=== PATIENT | male | born 1945 | race Caucasian/White ===

== ENCOUNTER 2018-07-19 10:50 | Inpatient (IN) ==
--- NOTE | 2018-07-19 11:15 | ED ---
HPI General Chief Complaint: Chest Pain Stated Complaint: Medical Time Seen by Provider: 07/19/18 10:53 History of Present Illness HPI narrative: This is a 72-year-old male with a history of, diabetes mellitus, previous lower extremity DVTs, who is on warfarin, presents today with complaints of 1-1/2-day history of chest pain. Patient reports it as tight squeezing in his chest. He denies any radiation. He reports it is a 10 out of 10. It is substernal in nature. The patient denies any previous history of pain such as this. He denies any history of heart attacks. He does have a strong family history of coronary artery disease. He reports that he just started smoking 4 years ago. He states that he had quit for several years prior to that. Related Data Home Medications Medication Instructions Recorded Confirmed metformin 1,000 mg PO BID 07/19/18 07/19/18 verapamil 120 mg PO DAILY 07/19/18 07/19/18 warfarin [Coumadin] 2.5 mg PO DAILY 07/19/18 07/19/18 Allergies Allergy/AdvReac Type Severity Reaction Status Date / Time No Known Allergies Allergy Verified 07/19/18 10:54 Review of Systems ROS: all other systems reviewed are negative Constitutional Reports system reviewed and no additional complaints, except as docu Eyes Reports system reviewed and no additional complaints, except as docu ENT Reports system reviewed and no additional complaints, except as docu Cardiovascular Reports chest pain, Denies rapid heart rate and Denies dyspnea Respiratory Denies chest congestion, Denies cough and Reports dyspnea Gastrointestinal Denies abdominal pain, Denies nausea and Denies vomiting Genitourinary Denies dysuria and Denies flank pain Musculoskeletal Denies back pain Neurologic Reports system reviewed and no additional complaints, except as docu PMFSH Medical History Medical History Diabetes (Acute) HBP (high blood pressure) (Acute) Surgical History Surgical History H/O shoulder surgery (Acute) Social History Social History Substance History: No History of Abuse Second Hand Smoke Exposure: Yes Smoking Status: Current every day smoker Tobacco Type: Cigarettes How Often Do You Have a Drink Containing Alcohol: Monthly or less Recent Out of Country Travel within the Last 8 Weeks: No Exam Narrative Exam Narrative: GENERAL: Well-developed well-nourished male who appears to be in obvious distress. SKIN: Focused skin assessment warm/dry. HEAD: Atraumatic. Normocephalic. EYES: No scleral icterus. No injection or drainage. ENT: No nasal bleeding or discharge. Mucous membranes pink and moist. NECK: Trachea midline. Supple. CARDIOVASCULAR: Regular rate and rhythm. No murmur appreciated. RESPIRATORY: No accessory muscle use. Clear to auscultation. Breath sounds equal bilaterally. Tachypneic with a rate in the low 20s. GASTROINTESTINAL: Abdomen soft, non-tender, nondistended. Hepatic and splenic margins not palpable. MUSCULOSKELETAL: No obvious deformities. No clubbing. No cyanosis. No edema. NEUROLOGICAL: Awake and alert. No obvious cranial nerve deficits. Motor grossly within normal limits. Normal speech. Course Initial Documented Vital Signs Temperature 97.8 F 07/19/18 10:54 Pulse Rate 68 07/19/18 10:54 Respiratory Rate 18 07/19/18 10:54 Blood Pressure 109/71 07/19/18 10:54 Pulse Oximetry 99 07/19/18 10:54 Last Documented Vital Signs Temperature 97.7 F 07/19/18 11:06 Pulse Rate 71 07/19/18 11:06 Respiratory Rate 18 07/19/18 11:06 Blood Pressure 110/68 07/19/18 11:06 Pulse Oximetry 99 07/19/18 11:06 Medical Decision Making MDM Narrative Medical decision making narrative: 72-year-old male history diabetes mellitus, hypertension, previous DVT of lower extreme is, presents today with complaints of chest pain since yesterday. The patient had acute ST elevation in the inferior leads. Case was discussed with Dr. Hayes, on-call stock saw operator who agreed to perform a cardiac cath. There were Q waves noted in the leads in addition to the ST elevation. This is consistent with a history of the pain starting yesterday. Medical Screen Exam Complete: Yes Emergency Medical Condition: Yes Differential Diagnosis Differential Diagnosis: ACS versus pulmonary embolus versus musculoskeletal pain Lab Data Result diagrams: 07/19/18 11:00 07/19/18 11:00 Lab Results 07/19/18 07/19/18 07/19/18 Range/Units 11:00 11:00 11:00 WBC 9.7 (4.0-11.0) th/mm3 RBC 4.42 L (4.50-5.90) mil/mm3 Hgb 13.5 (13.0-17.0) gm/dL POC Hgb (Calc) (13.0-17.0) g/dL Hct 40.0 (39.0-51.0) % POC Hct (39-51.0) % MCV 90.4 (80.0-100.0) fL MCH 30.6 (27.0-34.0) pg MCHC 33.9 (32.0-36.0) % RDW 14.8 (11.6-17.2) % Plt Count 220 (150-450) th/mm3 MPV 7.8 (7.0-11.0) fL Neut % (Auto) 77.5 H (16.0-70.0) % Lymph % (Auto) 12.2 (9.0-44.0) % [place] % (Auto) 7.2 (0.0-8.0) % Eos % (Auto) 2.8 (0.0-4.0) % Baso % (Auto) 0.3 (0.0-2.0) % Neut # (Auto) 7.5 (1.8-7.7) th/mm3 Lymph # (Auto) 1.2 (1.0-4.8) th/mm3 [place] # (Auto) 0.7 (0.0-0.9) th/mm3 Eos # (Auto) 0.3 (0.0-0.4) th/mm3 Baso # (Auto) 0.0 (0.0-0.2) th/mm3 WBC Differential . Differential Comment Auto diff final PT 24.2 H (9.8-11.6) sec INR 2.4 Ratio APTT 35.8 H (23.4-31.7) sec POC Sodium (137-144) mmol/L Sodium 137 (136-145) meq/L POC Potassium (3.6-5.0) mmol/L Potassium 4.5 (3.5-5.1) meq/L POC Chloride (102-111) mmol/L Chloride 107 (98-107) meq/L Carbon Dioxide 20.4 L (21.0-32.0) meq/L Anion Gap 10 (5-15) meq/L POC BUN (5-21) mg/dL BUN 23 H (7-18) mg/dL Creatinine 1.63 H (0.60-1.30) mg/dL POC Creatinine (0.6-1.3) mg/dL Estimated GFR 42 L (>89) mL/min POC Glucose (68-110) mg/dL Random Glucose 141 H (74-106) mg/dL Calcium 9.3 (8.5-10.1) mg/dL Total Bilirubin 0.6 (0.2-1.0) mg/dL AST 131 H (15-37) U/L ALT 30 (12-78) U/L Alkaline Phosphatase 66 (45-117) U/L Total Creatine Kinase 654 H (39-308) U/L CK-MB (CK-2) 66.6 H (0.5-3.6) ng/mL CK-MB (CK-2) % 10.2 H* (0.0-4.0) % Troponin I Greater than 40.00 H* (0.02-0.05) ng/mL Total Protein 7.3 (6.4-8.2) g/dL Albumin 3.7 (3.4-5.0) g/dL Lipase 104 (73-393) U/L 07/19/18 Range/Units 11:00 WBC (4.0-11.0) th/mm3 RBC (4.50-5.90) mil/mm3 Hgb (13.0-17.0) gm/dL POC Hgb (Calc) 13.6 (13.0-17.0) g/dL Hct (39.0-51.0) % POC Hct 40.0 (39-51.0) % MCV (80.0-100.0) fL MCH (27.0-34.0) pg MCHC (32.0-36.0) % RDW (11.6-17.2) % Plt Count (150-450) th/mm3 MPV (7.0-11.0) fL Neut % (Auto) (16.0-70.0) % Lymph % (Auto) (9.0-44.0) % [place] % (Auto) (0.0-8.0) % Eos % (Auto) (0.0-4.0) % Baso % (Auto) (0.0-2.0) % Neut # (Auto) (1.8-7.7) th/mm3 Lymph # (Auto) (1.0-4.8) th/mm3 [place] # (Auto) (0.0-0.9) th/mm3 Eos # (Auto) (0.0-0.4) th/mm3 Baso # (Auto) (0.0-0.2) th/mm3 WBC Differential Differential Comment PT (9.8-11.6) sec INR Ratio APTT (23.4-31.7) sec POC Sodium 139 (137-144) mmol/L Sodium (136-145) meq/L POC Potassium 4.4 (3.6-5.0) mmol/L Potassium (3.5-5.1) meq/L POC Chloride 104 (102-111) mmol/L Chloride (98-107) meq/L Carbon Dioxide (21.0-32.0) meq/L Anion Gap (5-15) meq/L POC BUN 22 H (5-21) mg/dL BUN (7-18) mg/dL Creatinine (0.60-1.30) mg/dL POC Creatinine 1.5 H (0.6-1.3) mg/dL Estimated GFR (>89) mL/min POC Glucose 147 H (68-110) mg/dL Random Glucose (74-106) mg/dL Calcium (8.5-10.1) mg/dL Total Bilirubin (0.2-1.0) mg/dL AST (15-37) U/L ALT (12-78) U/L Alkaline Phosphatase (45-117) U/L Total Creatine Kinase (39-308) U/L CK-MB (CK-2) (0.5-3.6) ng/mL CK-MB (CK-2) % (0.0-4.0) % Troponin I (0.02-0.05) ng/mL Total Protein (6.4-8.2) g/dL Albumin (3.4-5.0) g/dL Lipase (73-393) U/L Imaging Data Radiologist's impression: Chest X-Ray 07/19/18 10:54 CONCLUSION: No evidence of significant congestion or acute airspace disease. Discharge Plan Discharge Disposition Patient Disposition: ED Admit(ED Internal Use Only) Discharge Details Diagnosis: ST elevation myocardial infarction (STEMI), Diabetes mellitus, Hypertension, Anticoagulated Physicians Team ED Provider: Anton Garcia Rxs /Orders / Referrals /Forms Prescriptions: No Action verapamil 120 mg Tablet Extended Release 120 mg PO DAILY RF: 0 warfarin [Coumadin] 2.5 mg Tablet 2.5 mg PO DAILY RF: 0 metformin 1,000 mg Tablet 1,000 mg PO BID RF: 0 Discharge Instructions Patient Printed Instructions: Chest Pain (ED) Discharge Interventions Interventions: ED Discharge Assessment Last Done: 07/19/18 11:06 Vital Signs Last Done: 07/19/18 11:06 Status ED Status: With Doctor
[2018-07-19] MEDS ORDERED: fentaNYL Citrate Inj 100 MCG/2 ML Ampul ONE (11:16)
--- NOTE | 2018-07-19 11:22 | XR ---
EXAM DATE: 07/19/2018 11:17 AM EST AGE/SEX: 72 years / Male INDICATIONS: Stemi alert. CLINICAL DATA: This is the patient's initial encounter. Patient reports that signs and symptoms have been present for 1 day and indicates a pain score of 10/10. MEDICAL/SURGICAL HISTORY: . Unobtainable . Unobtainable COMPARISON: No prior exams available for comparison. FINDINGS: A single AP view of the chest demonstrates the lungs to be symmetrically aerated without evidence of mass, infiltrate or effusion. The cardiomediastinal contours are unremarkable. Osseous structures a re intact. CONCLUSION: No evidence of significant congestion or acute airspace disease. Electronically signed by: Francisco Javier Alcaraz MD 07/19/2018 11:21 AM EST
[2018-07-19 11:27] LABS: Baso % (Auto) 0.3 % (0.0-2.0); Eos # (Auto) 0.3 th/mm3 (0.0-0.4); Eos % (Auto) 2.8 % (0.0-4.0); Hemoglobin 13.5 gm/dL (13.0-17.0); Lymph # (Auto) 1.2 th/mm3 (1.0-4.8); Lymph % (Auto) 12.2 % (9.0-44.0); Mean Corpuscular HGB Conc 33.9 % (32.0-36.0); Mean Corpuscular Hemoglobin 30.6 pg (27.0-34.0); Mean Corpuscular Volume 90.4 fL (80.0-100.0); Mean Platelet Volume 7.8 fL (7.0-11.0); Mono # (Auto) 0.7 th/mm3 (0.0-0.9); Mono % (Auto) 7.2 % (0.0-8.0); Neut # (Auto) 7.5 th/mm3 (1.8-7.7); Neut % (Auto) 77.5 % (16.0-70.0); Platelet Count 220 th/mm3 (150-450); Red Blood Count 4.42 mil/mm3 (4.50-5.90); Red Cell Distribution Width 14.8 % (11.6-17.2); White Blood Count 9.7 th/mm3 (4.0-11.0)
[2018-07-19 11:36] LABS: Activated Partial Thrombo Time 35.8 sec (23.4-31.7); INR 2.4 Ratio; Prothrombin Time 24.2 sec (9.8-11.6)
[2018-07-19 11:40] LABS: Alanine Aminotransferase 30 U/L (12-78); Albumin 3.7 g/dL (3.4-5.0); Anion Gap 10 meq/L (5-15); Aspartate Aminotransferase 131 U/L (15-37); Blood Urea Nitrogen 23 mg/dL (7-18); Calcium 9.3 mg/dL (8.5-10.1); Carbon Dioxide 20.4 meq/L (21.0-32.0); Chloride 107 meq/L (98-107); Glomerular Filtration Rate 42 mL/min (>89); Glucose,Random 141 mg/dL (74-106); Lipase 104 U/L (73-393); Potassium 4.5 meq/L (3.5-5.1); Sodium 137 meq/L (136-145)
[2018-07-19 11:44] LABS: Alkaline Phosphatase 66 U/L (45-117); Creatine Kinase 654 U/L (39-308); Total Protein 7.3 g/dL (6.4-8.2)
[2018-07-19 12:13] LABS: Creatine Kinase MB 66.6 ng/mL (0.5-3.6)
[2018-07-19] MEDS ORDERED: Cangrelor Inj 50,000 MCG Vial ONE (12:18)
[2018-07-19] MEDS ORDERED: Tirofiban Inj 12,500 MCG/250 ML PLAST..BAG ONE (12:19)
[2018-07-19 12:23] LABS: CKMB Percent 10.2 % (0.0-4.0)
[2018-07-19] MEDS: DOPamine 800 MG/500 ML Premix 800 MG/500 ML PLAST..BAG IV.CONT PRN (12:50)
[2018-07-19] MEDS ORDERED: Heparin 10,000 UNITS/10 ML Vial (for IV use) ONE (13:10)
[2018-07-19] MEDS ORDERED: Heparin/NS PF Inj 1,000 ML ONE (13:10)
[2018-07-19] MEDS ORDERED: Iohexol 350 MG/ML 100 ML Vial (for Cath Lab) IVCONTRAST ONE (14:30)
[2018-07-19] MEDS ORDERED: Influenza (Quadrivalent) Vaccine 0.5 ML Syringe IM ONE (15:00)
--- NOTE | 2018-07-19 15:24 | CATHPROC ---
[facility] HIS Report Study Information Study Number Admission Scheduled Start Study Start [id number] Jul 19 2018 10:50AM 07/19/2018 Jul 19 2018 11:05AM Study Type [place] [facility] Left Heart Cath Cardiac Catheterization Admit Source Facility Department Emergency department [facility] - [facility] Physician and Clinical Staff Initial Suad Stroud Chaplain Carmen Nobles RN Chaplain Charisma Blanchard,TONYA Chaplain Renee Osuna RN Recorder Tanya Goncalves,RT(R) Scrub Mirlande Castillo,SEALANT MIXER TECH2 Procedures Performed Procedure Location (Site) Vessel Name Angiogram LV LV Ventricle Coronary Angiograms RCA Right Coronary L Heart Cath PTCA RCA Dist Right Coronary PTCA RCA Mid Right Coronary PTCA RCA Prox Right Coronary Stent RCA Dist Right Coronary Stent RCA Mid Right Coronary Stent RCA Prox Right Coronary Wire insertion Fem Art (right) Femoral Art Equipment Time Microsoft Windows Engineer Description Size Mfg Part Number Used/Scraped WIRE, BALANCE MIDDLEWEIGHT [id number] 11:37 [employer] 190CM Used 190CM *[id number] TRANSDUCER, TRUWAVE [id number] 11:10 DUQUE GIVENS * Used W/STOCKCOCK *[id number] *[id number] 534-548T *[id number] 534-520T *[id number] 534-552S *[id number] 12:24 DAIG/[employer]. [employer] ANGIOSEAL, FR6 VIP FR 6 Used *[id number] 11:10 Help/Systems BLANKET,WARM AIR CCL * Used *[id number] 11:10 Help/Systems PACK, CCL CUSTOM * Used *[id number] 11:10 [employer]SISmedical PACER PEN, SKIN DUAL W/ RULER * Used *[id number] 11:49 MEDTRONIC BALLOON, 2.0 X 15MM EUPHORA 15MM Used *[id number] BALLOON, 3.75 X 12MM NC [id number] 12:17 MEDTRONIC 12MM Used EUPHORA *[id number] EXPORTAP 11:41 MEDTRONIC CATHETER, EXPORT ASPIRATON Used *[id number] 11:56 MEDTRONIC STENT, 2.5 26 INTEGRITY 2.5 26 Used *[id number] 12:02 MEDTR[employer]IC STENT, 2.75 26 INTEGRITY 2.75 26 Used *[id number] [id number] 12:08 MEDTRONIC STENT, 3.0 30 INTEGRITY 3.0 30 Used *[id number] [id number] 11:50 [employer] MEDICAL 30 ISHMAEL INDEFLATOR Used *[id number] [id number] 11:41 [employer] MEDICAL SHEATH, FR6.5 PRELUDE 11CM FR 6.5 038ACT Used *[id number] 11:10 [employer] WIRE, 3MMJ .035 180CM 180CM Used *[id number] PROBE COVER, STERILE [id number] 11:10 Net [employer] * Used ULTRASOUND W/ GEL *[id number] 11:10 NAMIC MANIFOLD, 4 PORT * Used *[id number] [id number] 11:10 NAMIC TUBING, HIGH PRESSURE 48" 48" Used *[id number] 11:10 NYCOMED OMNIPAQUE, 350 MG, 150ML 150ML [id number] Used 12:21 [employer]ED OMNIPAQUE, 350 MG, 150ML 150ML [id number] Used 12:21 NYCOMED OMNIPAQUE, 350 MG, 50ML 50ML [id number] Used [id number] 11:10 TERUMCellumen MEDICAL SHEATH, FR5 TERUMO (10CM) FR 5 Used *[id number] Equipment Model, Serial, Lot Number and Expiration Data Description Model Number Serial Number Lot Number Expiration Date STENT, 2.5 26 INTEGRITY [id number] 05-13-2019 STENT, 2.75 26 INTEGRITY [id number] 04-05-2019 STENT, 3.0 30 INTEGRITY [id number] 12-02-2019 History: Current Medications Medication Dosage/Unit Route Frequency Last Date/Time Taken Coumadin Glucophage History: Allergies Allergy Reaction No Known Allergies History: Risk Factors Family History of Hypertension Dyslipidemia Premature CAD Yes Yes Yes Prior PCI Yes Cerebrovascular Peripheral Artery On Dialysis Diabetes Diabetes Therapy Disease Disease No No No Yes Oral History: Symptoms/Diagnosis Selection Items Chest pain History: Stress Tests Stress or Imaging Studies Performed No History: Other Current Smoker Method Packs a Day Years Used Pack Years Yes Cigarettes 1 30 30 Labs Hgb (g/dl) Hct (%) WBC (l/cumm) Platelets (thousands) 11.60-17.00 35.00-51.00 4.00-11.00 150.00-450.00 13.5 40 9.7 220 Glucose (mg/dl) BUN (mg/dl) Creatinine (mg/dl) BUN:Creatinine (1:x) 74.00-106.00 7.00-18.00 0.50-1.30 10.00-20.00 141 23 1.6 14.4 Na (meq/l) K (meq/l) 136.00-145.00 3.50-5.10 137 4.5 INR (PTT:PT) 0.90-1.10 2.4 Troponin I (ng/ml) CPK (u/l) CPK-MB (ng/ML) 0.02-0.05 26.00-308.00 0.50-3.60 40 654 10.2 Medication Medication Total Dose (Bolus/Oral) Medication Total Dosage/Unit 1% XYLOCAINE 20 mL AGGRASTAT BOLUS 42 mL BRILINTA 180 mg FENTANYL 100 mcg HEPARIN 6000 units MORPHINE 4 mg OXYGEN 4 l/min VERSED 4 mg Medications (Bolus/Oral) Medication Time Given Dosage/Unit Administered By Reason 07/19/2018 11:11:35 OXYGEN 4 l/min AM Patient arrived on 4 l/min OXYGEN via Nasal. 07/19/2018 11:21:54 1% XYLOCAINE 20 mL Mirlande Castillo AM 20 mL 1% XYLOCAINE given in lab by Mirlande Castillo RRT TECH2 in Right Groin via Subcutaneous. 07/19/2018 11:26:30 VERSED 1 mg Charisma Blanchard AM 1 mg VERSED given in lab by Charisma Blanchard RN in Left Antecubital via Peripheral IV. Ordered by Suad Chow. 07/19/2018 11:27:03 FENTANYL 25 mcg Charisma Blanchard AM 25 mcg FENTANYL given in lab by Charisma Blanchard RN in Left Antecubital via Peripheral IV. Ordered by Suad Hayes. 07/19/2018 11:30:50 VERSED 1 mg Charisma Blanchard AM 1 mg VERSED given in lab by Charisma Blanchard RN in Left Antecubital via Peripheral IV. Ordered by Suad Chow. 07/19/2018 11:31:05 FENTANYL 25 mcg Charisma Blanchard AM 25 mcg FENTANYL given in lab by Charisma Blanchard RN in Left Antecubital via Peripheral IV. Ordered by Suad Hayes. 07/19/2018 11:40:27 HEPARIN 6000 units Charisma Blanchard AM 6000 units HEPARIN given in lab by Charisma Blanchard RN in Right Radial via Peripheral IV. Ordered by Suad Hayes. 07/19/2018 12:03:37 VERSED 2 mg Charisma Blanchard 2 mg VERSED given in lab by Charisma Blanchard RN in Left Antecubital via Peripheral IV. Ordered by Suad Chow. 07/19/2018 12:05:04 FENTANYL 25 mcg Charisma Blanchard PM 25 mcg FENTANYL given in lab by Charisma Blanchard RN in Left Antecubital via Peripheral IV. Ordered by Suad Hayes. 07/19/2018 12:21:02 AGGRASTAT BOLUS 42 mL Charisma Blanchard 42 mL AGGRASTAT BOLUS given in lab by Charisma Blanchard RN in Right Antecubital via Peripheral IV. Ord ered by Suad Hayes. 07/19/2018 12:25:55 FENTANYL 25 mcg Charisma Blanchard PM 25 mcg FENTANYL given in lab by Charisma Blanchard RN in Left Antecubital via Peripheral IV. Ordered by Suad Hayes. 07/19/2018 12:30:07 MORPHINE 4 mg Charisma Blanchard 4 mg MORPHINE given in lab by Charisma Blanchard RN in Left Antecubital via Peripheral IV. Ordered by Suad Hernandez. 07/19/2018 12:35:25 BRILINTA 180 mg Charisma Blanchard PM 180 mg BRILINTA given in lab by Charisma Blanchard RN via Oral. Ordered by Suad Hayes. Medication (Drip) Medication Time Given Dosage/Unit Concentration/Unit Diluent (ml) Solution 07/19/2018 12:24:52 AGGRASTAT DRIP 0.075 mcg/kg/min 12.5 mg 250 NaCl .9 PM 0.075 mcg/kg/min AGGRASTAT DRIP given in lab by Charisma Blanchard RN in Right Antecubital via Peripher al IV. Pump/Drip Flow = 7.2 ml/hr using NaCl .9 with a concentration of 12.5 mg in 250 ml. Ordered by Suad Hayes. 07/19/2018 11:12:13 IV Bolus 1000 mL (Bolus) NaCl .9 AM 1000 mL (Bolus) IV Bolus given in lab by Charisma Blanchard, TONYA in Right Antecubital via Peripheral IV. Using NaCl .9. Ordered by Suad Hayes. Reason: As per physicians verbal order. 07/19/2018 11:49:48 IV Bolus 1000 mL (Bolus) NaCl .9 AM 1000 mL (Bolus) IV Bolus given in lab by Charisma Blanchard RN in Right Antecubital via Peripheral IV. Using NaCl .9. Ordered by Suad Hayes. Reason: As per physicians verbal order. 07/19/2018 11:11:41 IV Solutions 50 mL (IV) NaCl .9 AM IV Solutions given in lab by Charisma Blanchard RN in Left Antecubital via Peripheral IV. Pump/Drip David w using NaCl .9. Initial Case Assessment Cardiovascular HR Rhythm NIBP Chest Pain 56 sb 107/68 8 Circulatory - Right Pulses Dorsalis Pedis Femoral 1 1 Scale (0,1,2,3,4,d) Circulatory - Left Pulses Dorsalis Pedis Femoral 1 1 Scale (0,1,2,3,4,d) Neurological State Oriented to time-place- Alert Moves all extremities person Respiration - General Respiration Rate SpO2 (%) O2 (lpm) (B/min) 15 100 4 Final Case Assessment Cardiovascular HR Rhythm NIBP Chest Pain 71 sr 119/75 2 Circulatory - Right Pulses Dorsalis Pedis Femoral 1 1 Scale (0,1,2,3,4,d) Circulatory - Left Pulses Dorsalis Pedis Femoral 1 1 Scale (0,1,2,3,4,d) Neurological State Oriented to time-place- Alert Moves all extremities person Respiration - General Respiration Rate SpO2 (%) O2 (lpm) (B/min) 30 100 2 Chronological Log Time Study Chronological Log 11:01:40 Emergency Room notified that Cloth Folder Hand is ready. 11:11:15 Patient arrived via Bed. 11:11:16 Patient Name, D.O.B, / Armband Verified By R.N. 11:11:19 Consent signed by the physician and the patient and verified by the Cloth [facility] staff. 11:11:33 Patient has been NPO for Less than 6Hrs. 11:11:34 Skin Breakdown- none per pt 11:11:34 Patient Warmer Placed on the Table. 11:11:35 Patient arrived on 4 l/min OXYGEN via Nasal. 11:11:35 Disposable Defibrillator Pads Placed On Patient. 11:11:37 Ren Prominences Protected 11:11:40 A # 20 IV was noted in the Antecubital (right). Grade = 0 11:11:41 A # 18 IV was noted in the Antecubital (left). Grade = 0 11:11:41 IV Solutions given in lab by Charisma Blanchard RN in Left Antecubital via Peripheral IV. Pum p/Drip Flow using NaCl .9. 11:11:43 History and physical on the chart or being dictated. Assessment: Initial Case, HR=56 BPM, Rhythm=sb, DMCO=003/68 mmhg, Chest Pain=8 Right Pulses: Leland Ped=1, Femoral=1 11:11:46 Left Pulses: Leland Ped=1, Femoral=1 Neurological: State=Alert, Ox3, GODFREY Respiration: Resp=15 B/min, KiB5=350 %, O2=4 lpm 1000 mL (Bolus) IV Bolus given in lab by Charisma Blanchard RN in Right Antecubital via Periphera l IV. Using NaCl .9. 11:12:13 Ordered by Suad Hayes. Reason: As per physicians verbal order. 11:16:13 Bilateral groins prepped with 2% chlorhexidine, and draped after a 3 minute waiting time. Vitals capture started with the following parameters, Patient=Adult, Interval=5 min, Initial Pr pixfjp=715 mmHg, 11:16:41 Deflation Rate=5 mmHg, Cuff placed on Right Arm 11:17:21 HR=50 bpm, NIIJ=867/68 mmhg, HiZ1=740.0 %, Resp=15 B/min 11:17:32 paged 11:18:49 Pressure channel 1 zeroed. 11:21:54 20 mL 1% XYLOCAINE given in lab by Mirlande Castillo, SEALANT MIXER TECH2 in Right Groin via Subcutaneo us. 11:22:11 HR=56 bpm, ECOP=461/68 mmhg, PqM2=453.0 %, Resp=20 B/min 11:22:30 Reference ECG taken 11:23:50 MD responded 11:26:30 1 mg VERSED given in lab by Charisma Blanchard, TONYA in Left Antecubital via Peripheral IV. Orde red by Suad Hayes. 25 mcg FENTANYL given in lab by Charisma Blanchard, TONYA in Left Antecubital via Peripheral IV. Mina jovel by Abigail, 11:27:03 Suad. 11:27:14 HR=55 bpm, FDTU=549/67 mmhg, GvY5=700.0 %, Resp=15 B/min 11:30:20 MD arrived. 11:30:50 1 mg VERSED given in lab by Charisma Blanchard, TONYA in Left Antecubital via Peripheral IV. Mina red by Suad Hayes. 25 mcg FENTANYL given in lab by Charisma Blanchard, TONYA in Left Antecubital via Peripheral IV. Mina jovel by Abigail, 11:31:05 Suad. 11:32:14 HR=52 bpm, WBRC=293/64 mmhg, GzO3=317.0 %, Resp=18 B/min Time Out. Correct patient, correct procedure, correct physician, labs, allergies, and equipment verified with quality assurance qa lab technician 11:32:31 team present. Fire risk assesment completed (see hard stop sheet for coding). Time Out Conc urred by MD and individual staff in procedure. 11:33:09 Case Start 11:34:05 Access site was Right Femoral Artery. 11:34:10 A SHEATH, FR5 TERUMO (10CM) FR 5 was advanced into the Fem Art (right) using the Percutaneo us technique. A AR MOD INFINITI CATHETER FR 5 was advanced over a wire. OMNIPAQUE, 350 MG, 150ML 150ML was us ed for 11:34:49 injections. 11:36:00 The RCA was injected and visualized at various angles. OMNIPAQUE, 350 MG, 150ML 150ML used . 11:36:17 Catheter was removed 11:37:13 HR=59 bpm, NIBP=98/64 mmhg, BhZ6=189.0 %, Resp=16 B/min A JL 4.0 INFINITI CATHETER FR 5 was advanced over a wire. OMNIPAQUE, 350 MG, 150ML 150ML was us ed for 11:37:24 injections. Recorded Pressure: Ao, HR=51, Condition=Condition 1 11:38:04 (Aorta) Ao 87/50/62 11:39:19 Catheter was removed A SHEATH, FR6.5 PRELUDE 11CM FR 6.5 was exchanged in the Fem Art (right). This was necessary in order to 11:39:55 accomodate a larger catheter. 11:40:27 6000 units HEPARIN given in lab by Charisma Blanchard RN in Right Radial via Peripheral IV. O rdered by Suad Hayes. 11:41:22 A AR 1 GUIDE CATHETER FR 6 was advanced over a wire. OMNIPAQUE, 350 MG, 150ML 150ML was use d for injections. Recorded Pressure: Ao, HR=55, Condition=Condition 1 11:41:46 (Aorta) Ao 100/51/71 11:42:14 HR=57 bpm, KAYE=460/57 mmhg, QmM7=765.0 %, Resp=16 B/min 11:43:10 A WIRE, BALANCE MIDDLEWEIGHT 190CM 190CM was inserted via Fem Art (right). A CATHETER, EXPORT ASPIRATON was advanced over a wire. OMNIPAQUE, 350 MG, 150ML 150ML was used for 11:44:27 injections. 11:44:55 Aspiration in progress 11:46:44 [place]ont Catheter was removed 11:46:51 Activated Clotting Time Drawn 11:47:19 HR=49 bpm, NIBP=81/51 mmhg, SpO2=96.0 %, Resp=23 B/min A BALLOON, 2.0 X 15MM EUPHORA 15MM was inserted over WIRE, BALANCE MIDDLEWEIGHT 190CM 190CM via the 11:49:38 Fem Art (right). 1000 mL (Bolus) IV Bolus given in lab by Charisma Blanchard, TONYA in Right Antecubital via Periphera l IV. Using NaCl .9. 11:49:48 Ordered by Suad Hayes. Reason: As per physicians verbal order. A BALLOON, 2.0 X 15MM EUPHORA 15MM over a WIRE, BALANCE MIDDLEWEIGHT 190CM 190CM in the RCA Dis t was 11:49:50 inflated using a 30 ISHMAEL INDEFLATOR at 16 ishmael for 10 sec. A BALLOON, 2.0 X 15MM EUPHORA 15MM over a WIRE, BALANCE MIDDLEWEIGHT 190CM 190CM in the RCA Dis t was 11:50:12 inflated using a 30 ISHMAEL INDEFLATOR at 16 ishmael for 10 sec. A BALLOON, 2.0 X 15MM EUPHORA 15MM over a WIRE, BALANCE MIDDLEWEIGHT 190CM 190CM in the RCA Mid was 11:50:38 inflated using a 30 ISHMAEL INDEFLATOR at 16 ishmael for 18 sec. A BALLOON, 2.0 X 15MM EUPHORA 15MM over a WIRE, BALANCE MIDDLEWEIGHT 190CM 190CM in the RCA Mid was 11:51:32 inflated using a 30 ISHMAEL INDEFLATOR at 16 ishmael for 9 sec. A BALLOON, 2.0 X 15MM EUPHORA 15MM over a WIRE, BALANCE MIDDLEWEIGHT 190CM 190CM in the RCA Mid was 11:51:48 inflated using a 30 ISHMAEL INDEFLATOR at 16 ishmael for 13 sec. A BALLOON, 2.0 X 15MM EUPHORA 15MM over a WIRE, BALANCE MIDDLEWEIGHT 190CM 190CM in the RCA Pro x was 11:51:54 inflated using a 30 ISHMAEL INDEFLATOR at 16 ishmael for 18 sec. 11:52:53 HR=55 bpm, WUXR=589/56 mmhg, UrH2=796.0 %, Resp=25 B/min A BALLOON, 2.0 X 15MM EUPHORA 15MM over a WIRE, BALANCE MIDDLEWEIGHT 190CM 190CM in the RCA Pro x was 11:53:43 inflated using a 30 ISHMAEL INDEFLATOR at 16 ishmael for 18 sec. 11:54:15 ACT (Normal Range 90-180) = 374 11:54:21 Balloon Removed. An STENT, 2.5 26 INTEGRITY 2.5 26 Bare Metal Stent was inserted through a AR 1 GUIDE CATHETER F R 6 over a 11:57:14 WIRE, BALANCE MIDDLEWEIGHT 190CM 190CM. 11:57:21 HR=58 bpm, NIBP=85/57 mmhg, JlE9=236.0 %, Resp=20 B/min A STENT, 2.5 26 INTEGRITY 2.5 26 was deployed using a 30 ISHMAEL INDEFLATOR at 12 atmospheres for 2 7 seconds in 11:57:44 the RCA Dist. 11:58:33 Re-inflated the stent balloon in the RCA Dist to 16 ISHMAEL for 20 seconds. 11:59:26 Delivery device removed An STENT, 2.75 26 INTEGRITY 2.75 26 Bare Metal Stent was inserted through a AR 1 GUIDE CATHETER FR 6 over a 12:01:55 WIRE, BALANCE MIDDLEWEIGHT 190CM 190CM. A STENT, 2.75 26 INTEGRITY 2.75 26 was deployed using a 30 ISHMAEL INDEFLATOR at 16 atmospheres for 22 seconds in 12:02:04 the RCA Mid. 12:02:12 HR=60 bpm, NIBP=85/60 mmhg, BsG4=701.0 %, Resp=32 B/min 12:02:26 Re-inflated the stent balloon in the RCA Mid to 12 ISHMAEL for 17 seconds. 12:03:24 Delivery device removed 12:03:37 2 mg VERSED given in lab by Charisma Blanchard, TONYA in Left Antecubital via Peripheral IV. Orde red by Suad Hayes. 25 mcg FENTANYL given in lab by Charisma Blanchard, TONYA in Left Antecubital via Peripheral IV. Orde red by Abigail, 12:05:04 Suad. An STENT, 3.0 30 INTEGRITY 3.0 30 Bare Metal Stent was inserted through a AR 1 GUIDE CATHETER F R 6 over a 12:08:26 WIRE, BALANCE MIDDLEWEIGHT 190CM 190CM. 12:08:45 HR=67 bpm, MKGR=930/56 mmhg, EyS7=548.0 %, Resp=27 B/min A STENT, 3.0 30 INTEGRITY 3.0 30 was deployed using a 30 ISHMAEL INDEFLATOR at 14 atmospheres for 1 6 seconds in 12:11:43 the RCA Prox. 12:12:22 HR=62 bpm, NIBP=77/50 mmhg, Resp=16 B/min 12:12:50 Re-inflated the stent balloon in the RCA Prox to 12 ISHMAEL for 15 seconds. 12:13:11 NIBP STAT measurement started. 12:13:39 Delivery device removed 12:14:06 HR=72 bpm, SRVQ=440/65 mmhg, SpO2=90 %, Resp=20 B/min A BALLOON, 3.75 X 12MM NC EUPHORA 12MM was inserted over WIRE, BALANCE MIDDLEWEIGHT 190CM 190CM via 12:17:01 the Fem Art (right). 12:17:21 HR=71 bpm, GHFY=751/55 mmhg, VrZ5=425.0 %, Resp=27 B/min A BALLOON, 3.75 X 12MM NC EUPHORA 12MM over a WIRE, BALANCE MIDDLEWEIGHT 190CM 190CM in the RCA Mid 12:17:21 was inflated using a 30 ISHMAEL INDEFLATOR at 25 ishmael for 25 sec. 12:18:15 Balloon Removed. 12:19:50 Catheter was removed 12:19:52 Wire removed A PIGTAIL ANG. INFINITI CATHETER FR 5 was advanced over a wire. OMNIPAQUE, 350 MG, 150ML 150ML was used 12:20:05 for injections. 42 mL AGGRASTAT BOLUS given in lab by Charisma Blanchard RN in Right Antecubital via Peripheral I V. Ordered by 12:21:02 Suad Hayes. Recorded Pressure: LV, HR=79, Condition=Condition 1 12:21:11 (Left Ventricle) LV 87/15/18 12:21:42 The LV was injected at 10 cc/sec for a total of 20. OMNIPAQUE, 350 MG, 50ML 50ML used. Recorded Pressure: LV, Ao, HR=72, Condition=Condition 1 12:22:14 (Left Ventricle) LV 92/14/19, (Aorta) Ao 91/52/69 12:22:16 HR=71 bpm, NIBP=94/64 mmhg, Resp=30 B/min 12:22:42 Catheter was removed 12:23:25 An injection in the Fem Art (right) was made through the SHEATH, FR6.5 PRELUDE 11CM FR 6.5. 12:24:42 ANGIOSEAL, FR6 VIP FR 6 placement in the Fem Art (right) 0.075 mcg/kg/min AGGRASTAT DRIP given in lab by Charisma Blanchard RN in Right Antecubital via Pe ripheral IV. 12:24:52 Pump/Drip Flow = 7.2 ml/hr using NaCl .9 with a concentration of 12.5 mg in 250 ml. Ordered by Suad Hayes. 25 mcg FENTANYL given in lab by Charisma Blanchard, TONYA in Left Antecubital via Peripheral IV. Orde red by Abigail, 12:25:55 Suad. 12:27:17 HR=71 bpm, NIBP=95/59 mmhg, Resp=31 B/min 12:27:31 Case End (Physician broke scrub) 12:29:14 Sterile dressing applied to site 12:29:15 No case complications noted. 12:29:16 Cine recording checked. 12:29:17 Bedside Report will be given. 12:29:18 Implantable Device card placed in patient's chart. 12:29:21 A Left Heart Cath was performed. 12:30:07 4 mg MORPHINE given in lab by Charisma Blanchard, RN in Left Antecubital via Peripheral IV. O rdered by Suad Hayes. 12:32:18 NIBP=76/48 mmhg 12:35:25 180 mg BRILINTA given in lab by Charisma Blanchard, RN via Oral. Ordered by Suad Hayes. 12:38:22 Patient moved to [facility] Assessment: Final Case, HR=71 BPM, Rhythm=sr, IATF=907/75 mmhg, Chest Pain=2 Right Pulses: Leland Ped=1, Femoral=1 12:40:50 Left Pulses: Leland Ped=1, Femoral=1 Neurological: State=Alert, Ox3, GODFREY Respiration: Resp=30 B/min, PgN8=256 %, O2=2 lpm 12:40:51 Patient transported to [facility] End Study - Contrast Media Used In Study Contrast Total Opened (mL) Total Used (mL) Total Wasted (mL) Omnipaque 170 170 0 End Study - Maximum Contrast Load Max Contrast Load (mL) 248.6 End Study - Radiation Exposure Fluoro Time Fluoro Dose (mGy) Cine Dose (uGym2) (minutes) 13.0 1840 02141 End Study - Sheaths Sheaths Pulled By Sheath Hold Time (min) Suad Hayes End Study - Patient Disposition Complications Transferred To Interventional Outcome No Telemetry Bed successful
[2018-07-19] MEDS ORDERED: Sodium Chlor 0.9% Inj 500 ML IV.SIG ONE (16:00)
[2018-07-19] MEDS ORDERED: HYDROmorphone PF Inj 1 MG/ML Ampul IV.PUSH PRN (16:27)
[2018-07-19] MEDS ORDERED: Acetaminophen 325 MG Tablet PO PRN (16:27)
[2018-07-19] MEDS ORDERED: Bisacodyl 10 MG Supp RECTAL PRN (16:27)
[2018-07-19] MEDS ORDERED: Magnesium Sulfate Inj 4 GM in Sodium Chlor 0.9% Inj 92 ML IV.SIG PRN (16:32)
[2018-07-19] MEDS ORDERED: Potassium Phosphate Inj 30 MMOL in Sodium Chlor 0.9% Inj 250 ML IV.SIG PRN (16:32)
[2018-07-19] MEDS ORDERED: Potassium Chloride 25 MEQ Effervescent Tablet PO PRN (16:32)
[2018-07-19] MEDS ORDERED: Sodium Phosphate Inj 30 MMOL in Sodium Chlor 0.9% Inj 250 ML IV.SIG PRN (16:32)
[2018-07-19] MEDS ORDERED: Magnesium Sulfate Inj 2 GM in Sodium Chlor 0.9% Inj 96 ML IV.SIG PRN (16:32)
[2018-07-19] MEDS ORDERED: Dextrose 50% in Water 50 ML Vial IV.PUSH PRN (16:32)
[2018-07-19] MEDS ORDERED: Potassium Phosphate 500 MG Soluble Tablet PO PRN ×2 (16:32)
[2018-07-19] MEDS ORDERED: Potassium Chlor 40 mEq Premix 40 MEQ/100 ML PIGGYBACK IV.SIG PRN ×2 (16:32)
[2018-07-19] MEDS ORDERED: Warfarin Consult Pharmacy OTHER PRN (16:32)
[2018-07-19] MEDS ORDERED: Potassium Chlor 20 mEq Premix 20 MEQ/100 ML PIGGYBACK IV.SIG PRN ×2 (16:32)
[2018-07-19] MEDS ORDERED: Magnesium Oxide 400 MG Tablet PO PRN (16:32)
--- NOTE | 2018-07-19 16:51 | P.HPCC ---
History of Present Illness Service: Critical care medicine Primary Care Physician: UNKNOWN Chief Complaint: Chest pain History of Present Illness: This is a 72-year-old male. Date of admission 07/19/2018. Patient was taken straight to the [facility] and appears in room 525 on a dopamine drip at 7.5 mcg/kg/min. Patient was originally counseled the hospitalist but they consulted us for management. In reviewing the records, patient with history of depression on Adderall, hypertension, diabetes and ongoing tobaccoism. He is also on chronic warfarin for history of right lower extremity deep venous thrombosis. Today he presents to [facility] with a 36-hour history of ongoing chest pain, describes as squeezing his chest without radiation. States is 10 out of 10. And substernal in nature. EKG revealed ST elevation in inferior leads. Troponin greater than 40. Also no creatinine was elevated 1.6. INR is 2.4. During the cardiac catheterization , patient was noted to have's ejection fraction 30%. 0% stenosis left main. 70 % mid LAD. 6% diagonal. 40% OM. 100% RCA. Patient had bare-metal stents x3 placed in the RCA by 30 mm, 2.75 x 26 mm in 2.5 x 26 mm. Patient was recently admitted to the hospital service but patient remains on a dopamine drip at 7.5 mg/kg/min. Patient currently denies chest pain is asking for his psychiatric medications and water. Denies chest pain currently. - Diagnosis (1) Depression (2) DVT (deep venous thrombosis) (3) Acute kidney injury (4) Coronary artery disease (5) Acute inferior myocardial infarction (6) Essential hypertension (7) Diabetes mellitus (8) Anticoagulated Inpatient Certification: I certify that the inpatient services were ordered in accordance with Medicare regulations governing the order. This includes certification that hospital inpatient services are reasonable and necessary and in the case of services not specified as inpatient-only under 42 CFR 419.22(n), that they are appropriately provided as inpatient services in accordance to with the 2-midnight benchmark under 43 CFR 412.3(e) Estimated Total Length of Stay (Days): 5 Plans for Post Hospital Care: Not yet determined Review of Systems Constitutional: Denies anorexia, Denies chills, Denies daytime sleepiness Eyes: Denies blind spots Ears, Nose, Mouth, and Throat: Reports bad breath, Denies abnormal hearing, Denies bleeding gums Cardiovascular: Reports chest pain, Reports shortness of breath, Denies chest pain at rest, Denies chest pain with activity, Denies shortness of breath with activity Respiratory: Denies change in phlegm color, Denies chest congestion, Denies cough Gastrointestinal: Denies abdominal pain Genitourinary: Denies decreased urination, Denies scrotal swelling, Denies urinary hesitancy Musculoskeletal: Denies back pain Skin/Breast: Denies acne, Denies bleeding lesions Neurologic: Denies abnormal hearing, Denies abnormal movements, Denies abnormal speech Psychiatric: Reports depression, Denies abnormal sleep pattern, Denies anxiety Endocrine: Denies cold intolerance, Denies excessive sweating Hematologic/Lymphatic: Denies easy bleeding, Denies easy bruising Allergic/Immunologic: Denies GI upset with certain foods PMFSH - History History Provided By: Patient - Medical History Medical History: Medical History (Last Updated 07/19/18 @ 16:42 by Dante Mg MD) Anticoagulation goal of INR 2 to 3 Depression Diabetes HBP (high blood pressure) - Surgical History Surgical History: Surgical History (Last Updated 07/19/18 @ 16:42 by Dante Mg MD) H/O shoulder surgery History of thyroidectomy Hx of repair of rotator cuff - Family History Family History: Family History (Last Updated 07/19/18 @ 16:43 by Dante Mg MD) Father Family history of myocardial infarction - Social History I have reviewed the patient's Social History: Yes - Tobacco History Second Hand Smoke Exposure: No Tobacco Use In Past 30 Days: Yes Smoking Status: Heavy tobacco smoker Tobacco Type: Cigarettes - Alcohol History How Often Do You Have a Drink Containing Alcohol: Monthly or less - Substance Use History Substance History: No History of Abuse - Travel History Recent Travel Out of the Country Within the Last 8 Weeks: No - Immunization History Tetanus Immunization: <5 Years Hx Influenza Vaccine This Season: No Medications and Allergies Active Medications: Active Medications Acetaminophen (Tylenol) 650 mg PO Q6H PRN PRN Reason: Fever >101f Hydrocodone Bitart/Acetaminophen ([place] 5/325) 1 tab PO Q4H PRN PRN Reason: PAIN SCALE 1 TO 5 Al Hydroxide/Mg Hydroxide (Milk Of Magnesia Liq) 30 ml PO Q12H PRN PRN Reason: Mild Constipation Albuterol (Albuterol Neb (Hamida)) 2.5 mg NEB Q2HR NEB PRN PRN Reason: SHORTNESS OF BREATH/WHEEZING Albuterol (Duoneb Neb (Prn)) 1 ampul NEB Q4HR NEB HAMIDA Amphetamine/Dextroamphetamine (Adderall) 10 mg PO TID HAMIDA Bisacodyl (Dulcolax Supp) 10 mg RECTAL DAILY PRN PRN Reason: SEVERE CONSITIPATION Bupropion HCl (Wellbutrin) 75 mg PO TID HAMIDA Chlorhexidine Gluconate (Chlorhexidine 2% Cloth) 3 pack TOPICAL DAILY@0400 HAMIDA Stop: 07/25/18 03:59 Chlorhexidine Gluconate (Chlorhexidine 2% Cloth) 3 pack TOPICAL DAILY@0400 PRN PRN Reason: Extra cloth needed Stop: 07/25/18 03:59 Dextrose (D50w Vial) 50 ml IV.PUSH UNSCH PRN PRN Reason: PER HYPOGLYCEMIA PROTOCOL Glucagon (Glucagon Inj) 1 mg OTHER PRN PRN PRN Reason: for Hypoglycemia Protocol Hydromorphone HCl (Dilaudid Pf Inj) 1 mg IV.PUSH Q4H PRN PRN Reason: PAIN SCALE 6 TO 10 Dopamine HCl/Dextrose (Dopamine 800 Mg/500 Ml Premix) 800 mg in 500 mls @ 13.688 mls/hr IV.CONT TITRATE PRN; Protocol PRN Reason: Per Protocol Last Titration: 07/19/18 13:45 Dose: 10 mcg/kg/min, 27.38 mls/hr Magnesium Sulfate 4 gm/ Sodium (Chloride) 100 mls @ 50 mls/hr IV.SIG UNSCH PRN PRN Reason: For Magnesium 0.9 - 1.1 mg/dL Magnesium Sulfate 2 gm/ Sodium (Chloride) 100 mls @ 50 mls/hr IV.SIG UNSCH PRN PRN Reason: For Magnesium 1.2 - 1.6 mg/dL Potassium Chloride (Kcl 40 Meq Premix Inj) 40 meq in 100 mls @ 25 mls/hr IV.SIG Q2H PRN PRN Reason: For Potassium 2.8 - 3.2 mEq/L Potassium Chloride (Kcl 20 Meq Premix Inj) 20 meq in 100 mls @ 50 mls/hr IV.SIG Q2H PRN PRN Reason: For Potassium 3.3 - 3.5 mEq/L Potassium Chloride (Kcl 40 Meq Premix Inj) 40 meq in 100 mls @ 25 mls/hr IV.SIG UNSCH PRN PRN Reason: For Potassium 3.3 - 3.5 mEq/L Potassium Chloride (Kcl 20 Meq Premix Inj) 20 meq in 100 mls @ 50 mls/hr IV.SIG Q2H PRN PRN Reason: For Potassium 2.8 - 3.2 mEq/L Potassium Phosphate 30 mmol/ (Sodium Chloride) 260 mls @ 42 mls/hr IV.SIG UNSCH PRN PRN Reason: SEE LABEL COMMENTS Sodium Phosphate 30 mmol/ (Sodium Chloride) 260 mls @ 42 mls/hr IV.SIG UNSCH PRN PRN Reason: For Phosphorus < 2.5 mg/dL Insulin Aspart (Novolog Insulin Correctional Sugar Inj) 0 unit SQ Q6HR HAMIDA; Protocol Lactulose (Lactulose Liq) 30 ml PO DAILY PRN PRN Reason: SEVERE CONSITIPATION Magnesium Oxide (Mag-Ox) 800 mg PO UNSCH PRN PRN Reason: For Magnesium 1.2 - 1.6 mg/dL Pantoprazole Sodium (Protonix Inj) 40 mg IV.PUSH DAILY [facility] Pharmacy Profile Note (Coumadin Consult Pharmacy) 1 each OTHER UNSCH PRN PRN Reason: PHARMACY DOCUMENTATION Potassium Bicarb/Potassium Chloride (K-Lyte Cl Eff) 50 meq PO UNSCH PRN PRN Reason: For Potassium 3.3 - 3.5 mEq/L Potassium Phosphate (K-Phos Original) 2,000 mg PO Q4H PRN PRN Reason: Phosphorus Less Than 2.5 mg/dL Potassium Phosphate (K-Phos Original) 2,000 mg PO UNSCH PRN PRN Reason: SEE LABEL COMMENTS Senna/Docusate Sodium (Leelee-Colace) 1 tab PO BID [facility] Sennosides (Senokot) 17.2 mg PO Q12H PRN PRN Reason: Moderate Constipation Sodium Chloride (Ns Flush) 2 ml IV.FLUSH UNSCH PRN PRN Reason: FLUSH AFTER USING IV ACCESS Sodium Chloride (Ns Flush) 2 ml IV.FLUSH BID HAMIDA Sodium Chloride (Ns Flush) 2 ml IV.FLUSH PRN PRN PRN Reason: FLUSH AFTER USING IV ACCESS Allergies Allergy/AdvReac Type Severity Reaction Status Date / Time No Known Allergies Allergy Verified 07/19/18 10:54 Home Medications Medication Instructions Recorded Confirmed Type metformin 1,000 mg PO BID 07/19/18 07/19/18 History verapamil 120 mg PO DAILY 07/19/18 07/19/18 History warfarin [Coumadin] 2.5 mg PO DAILY 07/19/18 07/19/18 History Results - Labs CBC & Chem 7: 07/19/18 11:00 07/19/18 11:00 Labs: Short CBC 07/19/18 Range/Units 11:00 WBC 9.7 (4.0-11.0) th/mm3 Hgb 13.5 (13.0-17.0) gm/dL Hct 40.0 (39.0-51.0) % Plt Count 220 (150-450) th/mm3 [facility] 07/19/18 11:00 Sodium 137 Potassium 4.5 Chloride 107 Carbon Dioxide 20.4 L BUN 23 H Creatinine 1.63 H Calcium 9.3 Cardiac Enzymes 07/19/18 Range/Units 11:00 Total Creatine Kinase 654 H (39-308) U/L CK-MB (CK-2) 66.6 H (0.5-3.6) ng/mL Troponin I Greater than 40.00 H* (0.02-0.05) ng/mL Liver Function 07/19/18 Range/Units 11:00 Total Bilirubin 0.6 (0.2-1.0) mg/dL AST 131 H (15-37) U/L ALT 30 (12-78) U/L Alkaline Phosphatase 66 (45-117) U/L Albumin 3.7 (3.4-5.0) g/dL - Imaging Impressions Chest X-Ray 07/19/18 10:54 CONCLUSION: No evidence of significant congestion or acute airspace disease. Exam Vital signs: Vital Signs 07/19/18 10:54 07/19/18 11:06 07/19/18 14:15 Temperature 97.8 F 97.7 F Pulse Rate 69 71 48 L Respiratory Rate 20 18 20 Blood Pressure 109/61 110/68 69/46 L Pulse Oximetry 99 99 100 Intake & Output 07/18/18 07/19/18 07/19/18 18:59 06:59 18:59 Intake Total 2009 Balance 2009 Weight 73 kg Intake: IV 10 10 Heparin/NS PF Inj 1,000 ML @ 0 10 / 10 mls/hr .ROUTE .STK-MED ONE Rx#: [id number] Anesthesia Amount 1999 Other: Date of Last Bowel Movement 07/19/18 Weight On Admission 79.379 kg - Constitutional no acute distress - Routine HEENT Exam Head: Present: normocephalic, atraumatic Eye: Present: EOMI, PERRL, normal accommodation ENT: Present: mucous membranes moist - Routine Neck Exam Present: supple, full ROM. Absent: JVD - Routine Chest/Breast/Axilla Exam Chest wall: Absent: tenderness Breast: Absent: tenderness Axillae: Absent: lymphadenopathy - Routine Respiratory Exam Present: CTA bilaterally. Absent: accessory muscle use, rhonchi, stridor, wheezes - Routine Cardiovascular Exam Present: RRR, S1, S2. Absent: murmur - Routine Abdominal Exam Present: soft, normoactive bowel sounds. Absent: tenderness - Routine Extremities Exam Absent: cyanosis, clubbing, edema - Routine Skin Exam Present: intact - Routine Neurological Exam Present: alert, oriented X3, CN II-XII intact. Absent: sensory deficit, motor deficit Septic Shock Reassessment Septic shock perfusion: reassessment completed Caprini VTE Risk Assessment Caprini VTE Risk Assessment: Moderate/High Risk (score >= 2) Caprini Risk Assessment Model: Point Value = 1 Point Value = 2 Point Value = 3 Point Value = 5 Age 41-60 Minor surgery BMI > 25 kg/m2 Swollen legs Varicose veins or History of unexplained or recurrent spontaneous Oral contraceptives or hormone replacement Sepsis (< 1 month) Serious lung disease, including pneumonia (< 1 month) Abnormal pulmonary function Acute myocardial infarction Congestive heart failure (< 1 month) History of inflammatory bowel disease Medical patient at bed rest Age 61-74 Arthroscopic surgery Major open surgery (> 45 min) Laparoscopic surgery (> 45 min) Malignancy Confined to bed (> 72 hours) Immobilizing plaster cast Central venous access Age >= 75 History of VTE Family history of VTE Factor V Leiden Prothrombin [id number] Lupus anticoagulant Anticardiolipin antibodies Elevated serum homocysteine Heparin-induced thrombocytopenia Other congenital or acquired thrombophilia Stroke (< 1 month) Elective arthroplasty Hip, pelvis, or leg fracture Acute spinal cord injury (< 1 month) Prophylaxis Regimen: Total Risk Factor Score Risk Level Prophylaxis Regimen 0-1 Low Early ambulation 2 Moderate Order ONE of the following: *Sequential Compression Device (SCD) *Heparin 5000 units SQ BID 3-4 Higher Order ONE of the following medications: *Heparin 5000 units SQ TID *Enoxaparin/Lovenox 40 mg SQ daily (WT < 150 kg, CrCl > 30 mL/min) *Enoxaparin/Lovenox 30 mg SQ daily (WT < 150 kg, CrCl > 10-29 mL/min) *Enoxaparin/Lovenox 30 mg SQ BID (WT < 150 kg, CrCl > 30 mL/min) AND/OR *Sequential Compression Device (SCD) 5 or more Highest Order ONE of the following medications: *Heparin 5000 units SQ TID (Preferred with Epidurals) *Enoxaparin/Lovenox 40 mg SQ daily (WT < 150 kg, CrCl > 30 mL/min) *Enoxaparin/Lovenox 30 mg SQ daily (WT < 150 kg, CrCl > 10-29 mL/min) *Enoxaparin/Lovenox 30 mg SQ BID (WT < 150 kg, CrCl > 30 mL/min) AND *Sequential Compression Device (SCD) Assessment and Plan - Problem List (1) Depression Code(s): F32.9 - Major depressive disorder, single episode, unspecified Status : Acute (2) DVT (deep venous thrombosis) Code(s): I82.409 - Acute embolism and thrombosis of unspecified deep veins of unspecified lower extremity Status: Acute (3) Acute kidney injury Code(s): N17.9 - Acute kidney failure, unspecified Status: Acute (4) Coronary artery disease Code(s): I25.10 - Atherosclerotic heart disease of [place] coronary artery without angina pectoris Status: Acute (5) Acute inferior myocardial infarction Code(s): I21.19 - ST elevation (STEMI) myocardial infarction involving other coronary artery of inferior wall Status: Acute (6) Essential hypertension Code(s): I10 - Essential (primary) hypertension Status: Acute (7) Diabetes mellitus Code(s): E11.9 - Type 2 diabetes mellitus without complications Status: Acute (8) Anticoagulated Code(s): Z79.01 - line maintainer section (current) use of anticoagulants Status: Acute - Assessment and Plan Plan: Neuro/Psych: Major depressive disorder SOS Continue bupropion and dextroamphetamine/amphetamine Acetaminophen 650 p.o. every 6 hours as needed fever Hydrocodone/acetaminophen 5/325 1 tablet every 4 hours as needed pain 1 through 5 Morphine sulfate 2 mg every 2 hours as needed pain 6 through 10 CV: Acute inferior MS History of essential hypertension Hyperlipidemia Coronary artery disease Status post cardiac catheterization by Dr. Hayes Ejection fraction 30% per cardiac catheterization report Left main 0%. LAD 70%. Diagonal 60%. OM 40% mid RCA 100 percent Status post bare-metal stent to RCA x3 Antiplatelet management per cardiology. We will start on aspirin 81 mg daily ticagrelor 90 mg twice daily for dual action platelet therapy. Atorvastatin 10 milligrams daily for dyslipidemia No beta-paulo and JUDY inhibitor while hypotensive Home medications verapamil 120 mg daily. This is currently on hold Currently on Tirofiban drip until 6 AM On dopamine drip at 7.5 microgram/kg/minute to maintain mean artery pressure critical 65. Wean off as tolerated. Resp: Ongoing tobaccoism Nasal cannula to maintain saturations greater than equal to 92% Incentive spirometry while awake Albuterol/ipratropium aerosols every 4 hours with albuterol aerosols every 2 hours as needed dyspnea Tobacco cessation will be encouraged with self evaluation booklet to be provided GI: Elevated AST Cardiac/diabetic diet to be initiated Pantoprazole for GI prophylaxis Docusate sodium/senna 1 tablet twice daily for bowel regimen : Straight catheterization as needed Endo: Diabetes mellitus Holding metformin 1000 mg twice daily in light of acute kidney injury/recent IV contrast load Sliding scale insulin aspart insulin with Accu-Cheks every 6 hours to maintain euglycemia Check TSH with history of thyroidectomy Renal: Acute kidney injury Unknown baseline Monitor urine output Accurate I's and O's Recheck BMP in a.m. Heme: History of right lower extremity DVT Chronic warfarin use INR is 2.4. Recent warfarin 2.5 mg daily. Pharmacy consultation for management ID: Monitor for signs and symptomatology infection FEN: Replace electrolytes as clinically indicated MSK: Out of bed/PT evaluate and treat when indicated Access -Utilize peripheral IV. Central line if indicated Prophylaxis -GI -pantoprazole -DVT -SCD/warfarin Level 3 admission Code Status: Full code Discussed Condition With: Patient. Care plan discussed all questions answered H&P: Quality - VTE Deep Vein Thrombosis/Pulmonary Embolism Present on Admission: Yes (1) Depression Qualifiers: Depression Type: unspecified Qualified Code(s): F32.9 - Major depressive disorder, single episode, unspecified (2) DVT (deep venous thrombosis) Qualifiers: DVT location: lower extremity Affected thrombotic vein of extremity: unspecified vein of extremity Chronicity: chronic Laterality: right Qualified Code(s): I82.501 - Chronic embolism and thrombosis of unspecified deep veins of right lower extremity (4) Coronary artery disease Qualifiers: Coronary Disease-Associated Artery/Lesion type: [place] artery [place] vs. transplanted heart: [place] heart Associated angina: angina presence unspecified Qualified Code(s): I25.10 - Atherosclerotic heart disease of [place] coronary artery without angina pectoris (7) Diabetes mellitus Qualifiers: Diabetes mellitus type: type 2 Diabetes mellitus 911 operator insulin use: without 911 operator use Diabetes mellitus complication status: with unspecified complications Qualified Code(s): E11.8 - Type 2 diabetes mellitus with unspecified complications
[2018-07-19] MEDS ORDERED: Misc Info for Pharmacy OTHER STA (17:06)
--- NOTE | 2018-07-19 17:43 | MR ---
cc: Suad Hayes MD DATE: 07/19/2018 INDICATION: Acute ST elevation myocardial infarction, class IV angina, congestive heart failure, class II. This is a moderately frail patient. PROCEDURES PERFORMED: 1. Retrograde left heart catheterization with left ventriculography and selective coronary angiography. 2. Thrombectomy, angioplasty, and stenting of the right coronary artery. 3. Moderate sedation. ACCESS SITE: Right femoral artery. EQUIPMENT USED: 5 Serbian pigtail catheter, 5 Serbian JL4 and AR modified coronary catheters, AR1 6-Serbian AL1 guide, BMW wire, 2.0 balloon for predilatation, export thrombectomy catheter, and 2.5 x 26 mm Integrity bare-metal stent at 16 atmospheres to the distal RCA, 2.75 x 26 mm Integrity bare-metal stent at 16 atmospheres to the mid right coronary artery, and 3.0 x 30 mm Integrity bare-metal stent at 14 atmospheres to the proximal right coronary artery. MEDICATIONS: Versed IV, fentanyl IV, heparin IV, Aggrastat IV bolus and drip. Brilinta 180 mg p.o. Heparin IV. CONTRAST: Omnipaque 170 mL. COMPLICATIONS: None. ESTIMATED BLOOD LOSS: Less than 10 mL. METHOD OF HEMOSTASIS: Angio-Seal closure. RESULTS: A. HEMODYNAMICS: Heart rate 50 beats per minute,. End-diastolic pressure 14 mmHg. Left ventricle 92/14. Aorta 92/52/69. B. LEFT VENTRICULOGRAPHY: Ejection fraction 30%. Wall motion: inferior akinesis, no mitral regurgitation. C. CORONARY ANGIOGRAPHY: Left main coronary artery is patent. Left anterior descending artery has 70% stenosis in the mid portion, distally to the second diagonal branch. D1 60% ostial stenosis, D2 patent. Left circumflex artery patent. OM1 has 40% proximal stenosis, OM2 20% stenosis, OM3 patent. Right coronary artery is totally occluded in the proximal portion with thrombus. Distal branches filled by left to right collaterals. Stenosis in the right coronary artery is 100%. Lesion length: 60 mm. Pre-MARIA INES flow 0, post-MARIA INES flow 3. Post-stenosis is 0. PDA had 70% stenosis in the mid portion. The PLV had diffuse 60% stenosis. D. POST-INTERVENTION ANGIOGRAPHY: Excellent patency of stented segments and no evidence of dissection, thrombosis, or distal embolization. DIAGNOSES: 1. Acute ST elevation myocardial infarction. 2. Coronary artery disease with total occlusion of the right coronary artery with thrombus and moderate stenosis of the left anterior descending artery. 3. Moderate to severe left ventricular dysfunction consistent with ischemic cardiomyopathy. 4. Successful thrombectomy, angioplasty and stenting of the right coronary artery. DISPOSITION: Mr. Khan will be monitored on telemetry after his procedure. We will continue anticoagulation with Aggrastat, Brilinta and baby aspirin. We will initiate aggressive modification of his cardiac risk factors. He was strongly encouraged to quit smoking. MD AGUILAR Romero/jacy , 03:11 PM , 03:23 PM EMILIA
[2018-07-19] MEDS: buPROPion 75 MG Tablet PO SCH (17:54)
[2018-07-19] MEDS ORDERED: Tirofiban Inj 12,500 MCG/250 ML PLAST..BAG IV.CONT SCH (18:00)
[2018-07-19] MEDS: Insulin NovoLOG Aspart Correctional Sugar Inj SQ SCH (18:29)
--- NOTE | 2018-07-19 21:20 | MB ---
cc: Suad Hayes MD DATE: 07/19/2018 CHIEF COMPLAINT: A 72-year-old white male with a history of hypertension, diabetes mellitus, smoking and a right lower extremity deep venous thrombosis, on warfarin. He presented to the emergency room with 36-hour history of substernal chest pressure without radiation which was severe, 05/18. He was found to have inferior ST elevation and was diagnosed with acute ST elevation myocardial infarction. He was referred for emergent cardiac catheterization. PAST MEDICAL HISTORY: Positive for: 1. Hypertension. 2. Diabetes mellitus. 3. Depression. 4. Right lower extremity DVT. PAST SURGICAL HISTORY: 1. Shoulder surgery. 2. Thyroidectomy. 3. Rotator cuff repair. MEDICATIONS AT HOME: Include: 1. Verapamil. 2. Warfarin. 3. Metformin. ALLERGIES: NONE. SOCIAL HISTORY: The patient is a smoker. He drinks alcohol infrequently. FAMILY HISTORY: Positive for heart disease. Father who had myocardial infarction. REVIEW OF SYSTEMS: Otherwise negative. PHYSICAL EXAMINATION: VITAL SIGNS: Blood pressure 109/71, pulse 69 and regular. HEENT: Negative. NECK: 2+ carotid upstrokes, no bruits. LUNGS: Clear. HEART: Regular with no murmur or gallop. ABDOMEN: Soft. No bruits. EXTREMITIES: Without edema, 1-2+ pulses. NEUROLOGIC: Grossly nonfocal. LABORATORY DATA: EKG was reviewed and showed sinus bradycardia, right bundle branch block, inferior Q-waves and significant ST elevations with reciprocal with anterior reciprocal ST depressions consistent with acute inferior wall myocardial infarction with acute/recent myocardial infarction. LABORATORY DATA: Hemoglobin 13.5, INR 2.4, potassium 4.5, creatinine 1.63. AST 131, ALT 13. Troponin greater than 40. DIAGNOSES: 1. Acute ST elevation myocardial infarction. 2. Hypertension. 3. Diabetes mellitus. 4. History of deep venous thrombosis. 5. Smoking. DISPOSITION: Mr. Khan will undergo emergent cardiac catheterization and coronary intervention. He understands the risks and benefits, and wishes to proceed. He was strongly encouraged to quit smoking. We will titrate aggressive modification of cardiac risk factors after the procedure. MD AGUILAR Romero/jeronimo , 07:26 PM , 07:34 PM EMILIA
--- NOTE | 2018-07-19 21:56 | US ---
EXAM DATE: 07/19/2018 9:50 PM EST AGE/SEX: 72 years / Male INDICATIONS: Bilateral leg swelling. CLINICAL DATA: This is the patient's initial encounter. Patient reports that signs and symptoms have been present for 1 day and indicates a pain score of 0/10. MEDICAL/SURGICAL HISTORY: Diabetes. Hypertension. Depression. Thyroidectomy. Shoulder surgery . Repair rotator cuff. COMPARISON: No prior exams available for comparison. TECHNIQUE: Venous ultrasound of both lower extremities was performed from the inguinal ligament to t he proximal calf. Real-time, color Doppler and spectral tracing, compression and augmentation techni ques were used. FINDINGS: Right Leg: Normal compression of the deep venous system from the inguinal region to the proximal juliocesar f. No echogenic clot is seen. Normal response of the venous system to augmentation and respiration. Left Leg: Normal compression of the deep venous system from the inguinal region to the proximal calf . No echogenic clot is seen. Normal response of the venous system to augmentation and respiration. Other: None. CONCLUSION: 1. The study is negative for bilateral lower extremity deep venous thrombosis. Electronically signed by: Devendra Steen MD 07/19/2018 9:54 PM EST
[2018-07-19] MEDS: Senna/Docusate Sodium 8.6/50 MG Tablet PO SCH (22:03)
[2018-07-20] MEDS: Insulin NovoLOG Aspart Correctional Sugar Inj SQ SCH ×4 (00:11→17:35)
[2018-07-20] MEDS ORDERED: Chlorhexidine Gluconate 2% 1 Pack (2 Cloths) TOPICAL PRN (04:00)
[2018-07-20] MEDS: Chlorhexidine Gluconate 2% 1 Pack (2 Cloths) TOPICAL SCH (06:31)
[2018-07-20 07:01] LABS: Baso % (Auto) 0.2 % (0.0-2.0); Eos # (Auto) 0.2 th/mm3 (0.0-0.4); Eos % (Auto) 1.8 % (0.0-4.0); Hematocrit 35.8 % (39.0-51.0); Hemoglobin 12.4 gm/dL (13.0-17.0); Lymph # (Auto) 1.3 th/mm3 (1.0-4.8); Lymph % (Auto) 11.6 % (9.0-44.0); Mean Corpuscular HGB Conc 34.5 % (32.0-36.0); Mean Corpuscular Hemoglobin 30.4 pg (27.0-34.0); Mean Corpuscular Volume 87.9 fL (80.0-100.0); Mean Platelet Volume 8.3 fL (7.0-11.0); Mono # (Auto) 1.2 th/mm3 (0.0-0.9); Mono % (Auto) 11.3 % (0.0-8.0); Neut # (Auto) 8.2 th/mm3 (1.8-7.7); Neut % (Auto) 75.1 % (16.0-70.0); Platelet Count 209 th/mm3 (150-450); Red Blood Count 4.07 mil/mm3 (4.50-5.90); Red Cell Distribution Width 14.7 % (11.6-17.2); White Blood Count 10.9 th/mm3 (4.0-11.0)
[2018-07-20 07:13] LABS: Activated Partial Thrombo Time 44.8 sec (23.4-31.7); INR 4.8 Ratio; Prothrombin Time 48.5 sec (9.8-11.6)
[2018-07-20 07:32] LABS: Alanine Aminotransferase 57 U/L (12-78); Albumin 3.1 g/dL (3.4-5.0); Alkaline Phosphatase 60 U/L (45-117); Anion Gap 8 meq/L (5-15); Aspartate Aminotransferase 354 U/L (15-37); Blood Urea Nitrogen 23 mg/dL (7-18); Calcium 7.9 mg/dL (8.5-10.1); Carbon Dioxide 22.6 meq/L (21.0-32.0); Chloride 108 meq/L (98-107); Chol/HDL Ratio 4.71 Ratio; Cholesterol 167 mg/dL (120-200); Glomerular Filtration Rate 43 mL/min (>89); Glucose,Random 141 mg/dL (74-106); HDL Cholesterol 35.4 mg/dL (40.0-60.0); LDL Cholesterol,Calculated 104 mg/dL (0-99); Magnesium 1.8 mg/dL (1.5-2.5); Phosphorus 3.2 mg/dL (2.5-4.9); Potassium 4.3 meq/L (3.5-5.1); Sodium 139 meq/L (136-145); Thyroid Stimulating Hormone 0.733 uIU/mL (0.358-3.740); Total Protein 6.2 g/dL (6.4-8.2); Triglycerides 140 mg/dL (42-150)
[2018-07-20] MEDS: DOPamine 800 MG/500 ML Premix 800 MG/500 ML PLAST..BAG IV.CONT PRN (08:07)
[2018-07-20] MEDS: Senna/Docusate Sodium 8.6/50 MG Tablet PO SCH ×2 (08:09→20:38)
[2018-07-20] MEDS: Pantoprazole Inj 40 MG Vial IV.PUSH SCH (08:09)
[2018-07-20] MEDS: buPROPion 75 MG Tablet PO SCH ×3 (08:10→17:35)
--- NOTE | 2018-07-20 08:19 | P.PNCC ---
Subjective Subjective Remarks/Hospital Course: This is a 72-year-old male. Date of admission 07/19/2018. Patient was taken straight to the [facility] and appears in room 525 on a dopamine drip at 7.5 mcg/kg/min. Patient was originally counseled the hospitalist but they consulted us for management. In reviewing the records, patient with history of depression on Adderall, hypertension, diabetes and ongoing tobaccoism. He is also on chronic warfarin for history of right lower extremity deep venous thrombosis. Today he presents to [facility] with a 36-hour history of ongoing chest pain, describes as squeezing his chest without radiation. States is 10 out of 10. And substernal in nature. EKG revealed ST elevation in inferior leads. Troponin greater than 40. Also no creatinine was elevated 1.6. INR is 2.4. During the cardiac catheterization , patient was noted to have's ejection fraction 30%. 0% stenosis left main. 70 % mid LAD. 6% diagonal. 40% OM. 100% RCA. Patient had bare-metal stents x3 placed in the RCA by 30 mm, 2.75 x 26 mm in 2.5 x 26 mm. Patient was recently admitted to the hospital service but patient remains on a dopamine drip at 7.5 mg/kg/min. Patient currently denies chest pain is asking for his psychiatric medications and water. Denies chest pain currently. SUBJECTIVE: 07/20: Afebrile. Remains on dopamine drip at 8 mcg/kg/min. Unable to wean. Will need central line. Appears stable. Intermittently short of breath. Denies chest pain currently. Objective Vital Signs / I&O: Vital Signs 07/19/18 10:54 07/19/18 11:06 07/19/18 14:15 Temperature 97.8 F 97.7 F Pulse Rate 69 71 48 L Respiratory Rate 20 18 20 Blood Pressure 109/61 110/68 69/46 L Pulse Oximetry 99 99 100 07/19/18 17:00 07/19/18 18:00 07/19/18 19:00 Temperature 97.7 F 97.6 F Pulse Rate 62 60 60 Respiratory Rate 18 20 15 Blood Pressure 105/57 L 93/54 L 87/52 L Pulse Oximetry 100 99 98 07/19/18 19:30 07/19/18 19:47 07/19/18 20:00 Temperature 97.8 F Pulse Rate 64 62 63 Respiratory Rate 16 18 17 Blood Pressure 107/59 L 79/50 L 123/65 Pulse Oximetry 100 100 100 07/19/18 20:05 07/19/18 20:30 07/19/18 21:00 Temperature Pulse Rate 66 64 66 Respiratory Rate 20 19 19 Blood Pressure 121/66 106/61 Pulse Oximetry 100 99 98 07/19/18 21:30 07/19/18 21:45 07/19/18 22:00 Temperature Pulse Rate 66 71 66 Respiratory Rate 19 15 21 Blood Pressure 102/58 L 114/62 97/56 L Pulse Oximetry 99 99 99 07/19/18 22:30 07/19/18 22:45 07/19/18 22:54 Temperature Pulse Rate 67 66 62 Respiratory Rate 16 20 Blood Pressure 98/54 L 112/59 L Pulse Oximetry 98 99 07/19/18 23:00 07/20/18 00:00 07/20/18 00:03 Temperature 97.9 F Pulse Rate 66 71 66 Respiratory Rate 17 18 20 Blood Pressure 104/55 L 135/79 Pulse Oximetry 100 100 07/20/18 01:00 07/20/18 02:00 07/20/18 02:30 Temperature Pulse Rate 68 72 67 Respiratory Rate 20 17 22 Blood Pressure 101/56 L 105/60 98/62 L Pulse Oximetry 98 97 07/20/18 03:00 07/20/18 03:15 07/20/18 03:30 Temperature Pulse Rate 65 65 64 Respiratory Rate 17 19 17 Blood Pressure 98/58 L 104/61 101/59 L Pulse Oximetry 97 98 98 07/20/18 03:45 07/20/18 04:00 07/20/18 04:30 Temperature 97.7 F Pulse Rate 63 63 66 Respiratory Rate 17 19 29 H Blood Pressure 105/64 109/59 L 95/50 L Pulse Oximetry 99 97 99 07/20/18 04:45 07/20/18 05:00 07/20/18 05:30 Temperature Pulse Rate 65 68 73 Respiratory Rate 17 28 H 25 H Blood Pressure 88/55 L 94/53 L 114/61 Pulse Oximetry 97 96 96 07/20/18 05:45 07/20/18 06:00 07/20/18 06:15 Temperature Pulse Rate 65 63 65 Respiratory Rate 26 H 21 26 H Blood Pressure 114/53 L 97/53 L 87/53 L Pulse Oximetry 97 85 L 98 07/20/18 06:30 07/20/18 06:45 07/20/18 07:00 Temperature Pulse Rate 63 64 67 Respiratory Rate 24 24 27 H Blood Pressure 106/59 L 105/55 L 100/56 L Pulse Oximetry 95 97 98 07/20/18 07:11 07/20/18 07:15 Temperature Pulse Rate 63 63 Respiratory Rate 26 H 25 H Blood Pressure 99/58 L Pulse Oximetry 99 100 Intake & Output 07/19/18 07/20/18 07/20/18 18:59 06:59 18:59 Intake Total 2250 / 2250 450 / 450 500 / 500 Output Total 900 / 900 Balance 2250 / 2250 -450 / -450 500 / 500 Weight 73 kg 72.6 kg Intake: IV 10 / 10 500 / 500 Heparin/NS PF Inj 1,000 ML @ 0 10 / 10 mls/hr .ROUTE .[facility] Rx#: [id number] DOPamine 800 MG/500 ML Premix 500 / 500 800 mg In 500 ml @ 5 MCG/KG/MIN 13.688 mls/hr IV.CONT TITRATE PRN Rx#:[id number] Oral 240 / 240 450 / 450 Anesthesia Amount 1999 / 1999 Output: Urine 900 / 900 Other: Date of Last Bowel Movement 07/19/18 07/19/18 # Bowel Movements 0 Weight On Admission 79.379 kg Result Diagrams: 07/20/18 05:03 07/20/18 05:03 Imaging: Venous Doppler Study 07/19/18 00:00 CONCLUSION: 1. The study is negative for bilateral lower extremity deep venous thrombosis. Chest X-Ray 07/19/18 10:54 CONCLUSION: No evidence of significant congestion or acute airspace disease. Objective Remarks: GENERAL: This is a 72-year-old male currently resting in bed in no acute distress SKIN: Warm and dry. No rash HEAD: Atraumatic. Normocephalic. EYES: Pupils equal and round. No scleral icterus. No injection or drainage. ENT: No nasal bleeding or discharge. Mucous membranes pink and moist. NECK: Trachea midline. No JVD. CARDIOVASCULAR: Regular rate and rhythm. S1, S2. No S4. RESPIRATORY: No accessory muscle use. Clear to auscultation. Breath sounds equal bilaterally. GASTROINTESTINAL: Abdomen soft, non-tender, nondistended. Hypoactive bowel sounds appreciated. MUSCULOSKELETAL: Extremities without clubbing, cyanosis, or edema. No obvious deformities. Right inguinal region without hematoma NEUROLOGICAL: Awake and alert. No obvious cranial nerve deficits. Motor grossly within normal limits. Five out of 5 muscle strength in the arms and legs. Normal speech. PSYCHIATRIC: Appropriate mood and affect; insight and judgment normal. Assessment and Plan - Problem List (1) Depression Code(s): F32.9 - Major depressive disorder, single episode, unspecified Status : Acute (2) DVT (deep venous thrombosis) Code(s): I82.409 - Acute embolism and thrombosis of unspecified deep veins of unspecified lower extremity Status: Acute (3) Acute kidney injury Code(s): N17.9 - Acute kidney failure, unspecified Status: Acute (4) Coronary artery disease Code(s): I25.10 - Atherosclerotic heart disease of squaxin coronary artery without angina pectoris Status: Acute (5) Acute inferior myocardial infarction Code(s): I21.19 - ST elevation (STEMI) myocardial infarction involving other coronary artery of inferior wall Status: Acute (6) Essential hypertension Code(s): I10 - Essential (primary) hypertension Status: Acute (7) Diabetes mellitus Code(s): E11.9 - Type 2 diabetes mellitus without complications Status: Acute (8) Anticoagulated Code(s): Z79.01 - janitor (current) use of anticoagulants Status: Acute - Assessment and Plan Plan: Neuro/Psych: Major depressive disorder SOS Continue bupropion. Obtain home medicine doses. Cardiology request holding dextroamphetamine/amphetamine for now. Acetaminophen 650 p.o. every 6 hours as needed fever Hydrocodone/acetaminophen 5/325 1 tablet every 4 hours as needed pain 1 through 5 Morphine sulfate 2 mg every 2 hours as needed pain 6 through 10 CV: Acute inferior CA History of essential hypertension Hyperlipidemia with elevated LDL Coronary artery disease Status post cardiac catheterization by Dr. Hayes Ejection fraction 30% per cardiac catheterization report Left main 0%. LAD 70%. Diagonal 60%. OM 40% mid RCA 100 percent Status post bare-metal stent to RCA x3 Antiplatelet management per cardiology. We will start on ticagrelor 90 mg twice daily for dual action platelet therapy. Initiate aspirin 81 mg daily okay with cardiology Atorvastatin 10 milligrams daily for dyslipidemia No beta-paulo and JUDY inhibitor while hypotensive Home medications verapamil 120 mg daily. This is currently on hold Currently on Tirofiban drip until 6 AM On dopamine drip at 8 microgram/kg/minute to maintain mean artery pressure critical 65. Wean off as tolerated. Resp: Ongoing tobaccoism Nasal cannula to maintain saturations greater than equal to 92% Incentive spirometry while awake Albuterol/ipratropium aerosols every 4 hours with albuterol aerosols every 2 hours as needed dyspnea Tobacco cessation will be encouraged with self evaluation booklet to be provided GI: Elevated AST -likely cardiac Hypoalbuminemia Cardiac/diabetic diet to be initiated Pantoprazole for GI prophylaxis Docusate sodium/senna 1 tablet twice daily for bowel regimen : Straight catheterization as needed Endo: Diabetes mellitus Holding metformin 1000 mg twice daily in light of acute kidney injury/recent IV contrast load Sliding scale insulin aspart insulin with Accu-Cheks every 6 hours to maintain euglycemia TSH is 0.733 Renal: Acute kidney injury Unknown baseline Monitor urine output Accurate I's and O's Recheck BMP in a.m. Check urine eosinophils, sodium, creatinine and renal ultrasound. Heme: History of right lower extremity DVT Chronic warfarin use Normocytic anemia INR is 4.8. Recent warfarin 2.5 mg daily. Pharmacy consultation for management ID: Monitor for signs and symptomatology infection FEN: Replace electrolytes as clinically indicated MSK: Out of bed/PT evaluate and treat when indicated Access -Utilize peripheral IV. Central line if indicated Prophylaxis -GI -pantoprazole -DVT -SCD/warfarin anticoagulation Level 3 follow-up Code Status: Full code Discussed Condition With: Patient. Care plan discussed and all questions answered. (1) Depression Qualifiers: Depression Type: unspecified Qualified Code(s): F32.9 - Major depressive disorder, single episode, unspecified (2) DVT (deep venous thrombosis) Qualifiers: DVT location: lower extremity Affected thrombotic vein of extremity: unspecified vein of extremity Chronicity: chronic Laterality: right Qualified Code(s): I82.501 - Chronic embolism and thrombosis of unspecified deep veins of right lower extremity (4) Coronary artery disease Qualifiers: Coronary Disease-Associated Artery/Lesion type: squaxin artery [place] vs. 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
[2018-07-20] MEDS ORDERED: Magnesium Sulfate Inj 2 GM in Sodium Chlor 0.9% Inj 96 ML IV.SIG ONE (10:00)
--- NOTE | 2018-07-20 10:08 | US ---
EXAM DATE: 07/20/2018 9:20 AM EST AGE/SEX: 72 years / Male INDICATIONS: Increased BUN/Creat. CLINICAL DATA: This is the patient's initial encounter. Patient reports that signs and symptoms have been present for 2 days and indicates a pain score of 0/10. MEDICAL/SURGICAL HISTORY: Diabetes. Hypertension. Anticoagulation goal of INR 2 to 3. Depressi on. Thyroidectomy. Shoulder surgery. Repair of rotator cuff. COMPARISON: No prior exams available for comparison. MEASUREMENTS: Right Kidney:__10.7 x 4.5 x 4.9 cm Left Kidney:__10.7 x 4.4 x 5.9 cm FINDINGS: Right Kidney: 10 echogenic cortex 1.9 cm cyst upper pole. 1.3 cm cyst lower pole. No hydronephrosis. Left Kidney: Increased echogenicity. No mass or hydronephrosis. Bladder: Within normal limits given the degree of distension. Other: No ascites CONCLUSION: 1. Right renal cyst. 2. Increased echogenicity with thinning of the cortex bilaterally suggesting chronic renal disease w ithout obstruction. Electronically signed by: Barry Doe MD 07/20/2018 10:07 AM EST
--- NOTE | 2018-07-20 10:10 | P.PCN ---
Date of procedure: 07/20/18 Pre-op diagnosis: Hypotension Post-op diagnosis: same Procedure: DATE: 07/20/2018 CENTRAL LINE PLACEMENT: Right internal jugular vein. Ultrasound-guided INDICATION: Central venous access CONSENT Informed consent for procedure was obtained from competent patient. DESCRIPTION OF THE PROCEDURE The patient was placed in supine position. The skin was cleansed with Chloraprep. Additional barrier precautions included large sterile drape, sterile gloves, sterile gown, face mask, and hat. 1 % lidocaine was used for local anesthesia. Under direct ultrasound guidance and on initial attempt, the vein was accessed with an introducer needle. The guide wire was advanced and the tract was dilated. Using Seldinger technique a 7 Croatian 20 cm antimicrobial coated triple-lumen catheter was advanced to a depth of 16 centimeters. The guide wire was removed. All ports had good return of dark venous blood and flushed easily with saline. The central line was secured with 2.0 silk. A sterile dressing with antibiotic disc was applied. StatLock was applied ESTIMATED BLOOD LOSS: Minimal COMPLICATIONS: No apparent complications. STAT chest x-ray pending at time of dictation
--- NOTE | 2018-07-20 11:38 | XR ---
EXAM DATE: 07/20/2018 11:32 AM EST AGE/SEX: 72 years / Male INDICATIONS: Right side line placement. CLINICAL DATA: This is the patient's initial encounter. Patient reports that signs and symptoms have been present for 4 - 6 days and indicates a pain score of 0/10. MEDICAL/SURGICAL HISTORY: Hypertension. diabetes . thyrpoidectomy COMPARISON: C, CHEST 1V SINGLE AP, 07/19/2018. . FINDINGS: Central line in good position from the right IJ without pneumothorax. Moderate bibasilar consolidativ e changes. These have progressed in the interval. Heart is minimally enlarged. CONCLUSION: Line in good position Increasing bibasilar consolidative changes Electronically signed by: Barry Doe MD 07/20/2018 11:37 AM EST
--- NOTE | 2018-07-20 11:49 | P.PNCA ---
Subjective Interval history: Patient denies any CP, pressure, palpitations, dizziness, edema or SOB. Patient states that he is tired due to not getting much sleep last night. Medications and Allergies Allergies Allergy/AdvReac Type Severity Reaction Status Date / Time No Known Allergies Allergy Verified 07/19/18 10:54 Home Medications Medication Instructions Recorded Confirmed Type metformin 1,000 mg PO BID 07/19/18 07/19/18 History verapamil 120 mg PO DAILY 07/19/18 07/19/18 History warfarin [Coumadin] 2.5 mg PO DAILY 07/19/18 07/19/18 History Active Medications: Active Medications Acetaminophen (Tylenol) 650 mg PO Q6H PRN PRN Reason: Fever >101f Hydrocodone Bitart/Acetaminophen ([place] 5/325) 1 tab PO Q4H PRN PRN Reason: PAIN SCALE 1 TO 5 Al Hydroxide/Mg Hydroxide (Milk Of Magnsanthosh Liq) 30 ml PO Q12H PRN PRN Reason: Mild Constipation Albuterol (Albuterol Neb (Prn)) 2.5 mg NEB Q2HR NEB PRN PRN Reason: SHORTNESS OF BREATH/WHEEZING Albuterol (Duoneb Neb (Flakito)) 1 ampul NEB Q4HR NEB [facility] Last Admin: 07/20/18 07:11 Dose: 1 ampul Bisacodyl (Dulcolax Supp) 10 mg RECTAL DAILY PRN PRN Reason: SEVERE CONSITIPATION Bupropion HCl (Wellbutrin) 75 mg PO TID [facility] Last Admin: 07/20/18 08:10 Dose: 75 mg Chlorhexidine Gluconate (Chlorhexidine 2% Cloth) 3 pack TOPICAL DAILY@0400 [facility] Stop: 07/25/18 03:59 Last Admin: 07/20/18 06:31 Dose: 3 pack Chlorhexidine Gluconate (Chlorhexidine 2% Cloth) 3 pack TOPICAL DAILY@0400 PRN PRN Reason: Extra cloth needed Stop: 07/25/18 03:59 Dextrose (D50w Vial) 50 ml IV.PUSH UNSCH PRN PRN Reason: PER HYPOGLYCEMIA PROTOCOL Glucagon (Glucagon Inj) 1 mg OTHER PRN PRN PRN Reason: for Hypoglycemia Protocol Hydromorphone HCl (Dilaudid Pf Inj) 1 mg IV.PUSH Q4H PRN PRN Reason: PAIN SCALE 6 TO 10 Dopamine HCl/Dextrose (Dopamine 800 Mg/500 Ml Premix) 800 mg in 500 mls @ 13.688 mls/hr IV.CONT TITRATE PRN; Protocol PRN Reason: Per Protocol Last Admin: 07/20/18 08:07 Dose: 6 mcg/kg/min, 16.43 mls/hr Magnesium Sulfate 4 gm/ Sodium (Chloride) 100 mls @ 50 mls/hr IV.SIG UNSCH PRN PRN Reason: For Magnesium 0.9 - 1.1 mg/dL Magnesium Sulfate 2 gm/ Sodium (Chloride) 100 mls @ 50 mls/hr IV.SIG UNSCH PRN PRN Reason: For Magnesium 1.2 - 1.6 mg/dL Last Admin: 07/20/18 09:14 Dose: 50 mls/hr Potassium Chloride (Kcl 40 Meq Premix Inj) 40 meq in 100 mls @ 25 mls/hr IV.SIG Q2H PRN PRN Reason: For Potassium 2.8 - 3.2 mEq/L Potassium Chloride (Kcl 20 Meq Premix Inj) 20 meq in 100 mls @ 50 mls/hr IV.SIG Q2H PRN PRN Reason: For Potassium 3.3 - 3.5 mEq/L Potassium Chloride (Kcl 40 Meq Premix Inj) 40 meq in 100 mls @ 25 mls/hr IV.SIG UNSCH PRN PRN Reason: For Potassium 3.3 - 3.5 mEq/L Potassium Chloride (Kcl 20 Meq Premix Inj) 20 meq in 100 mls @ 50 mls/hr IV.SIG Q2H PRN PRN Reason: For Potassium 2.8 - 3.2 mEq/L Potassium Phosphate 30 mmol/ (Sodium Chloride) 260 mls @ 42 mls/hr IV.SIG UNSCH PRN PRN Reason: SEE LABEL COMMENTS Sodium Phosphate 30 mmol/ (Sodium Chloride) 260 mls @ 42 mls/hr IV.SIG UNSCH PRN PRN Reason: For Phosphorus < 2.5 mg/dL Tirofiban/Sodium Chloride (Aggrastat Inj) 12,500 mcg in 250 mls @ 0 mls/hr IV.CONT .Q0M [facility]; Protocol Magnesium Sulfate 2 gm/ Sodium (Chloride) 100 mls @ 50 mls/hr IV.SIG ONCE ONE Stop: 07/20/18 11:59 Last Admin: 07/20/18 10:47 Dose: 50 mls/hr Insulin Aspart (Novolog Insulin Correctional Sugar Inj) 0 unit SQ Q6HR [facility]; Protocol Last Admin: 07/20/18 06:40 Dose: 1 unit Lactulose (Lactulose Liq) 30 ml PO DAILY PRN PRN Reason: SEVERE CONSITIPATION Magnesium Oxide (Mag-Ox) 800 mg PO UNSCH PRN PRN Reason: For Magnesium 1.2 - 1.6 mg/dL Pantoprazole Sodium (Protonix Inj) 40 mg IV.PUSH DAILY [facility] Last Admin: 07/20/18 08:09 Dose: 40 mg Pharmacy Profile Note (Coumadin Consult Pharmacy) 1 each OTHER UNSCH PRN PRN Reason: PHARMACY DOCUMENTATION Potassium Bicarb/Potassium Chloride (K-Lyte Cl Eff) 50 meq PO UNSCH PRN PRN Reason: For Potassium 3.3 - 3.5 mEq/L Potassium Phosphate (K-Phos Original) 2,000 mg PO Q4H PRN PRN Reason: Phosphorus Less Than 2.5 mg/dL Potassium Phosphate (K-Phos Original) 2,000 mg PO UNSCH PRN PRN Reason: SEE LABEL COMMENTS Pravastatin Sodium (Pravachol) 40 mg PO HS [facility] Last Admin: 07/19/18 22:04 Dose: 40 mg Senna/Docusate Sodium ([place]-Colace) 1 tab PO BID [facility] Last Admin: 07/20/18 08:09 Dose: Not Given Sennosides (Senokot) 17.2 mg PO Q12H PRN PRN Reason: Moderate Constipation Sodium Chloride (Ns Flush) 2 ml IV.FLUSH UNSCH PRN PRN Reason: FLUSH AFTER USING IV ACCESS Sodium Chloride (Ns Flush) 2 ml IV.FLUSH BID [facility] Last Admin: 07/20/18 08:08 Dose: 2 ml Sodium Chloride (Ns Flush) 2 ml IV.FLUSH PRN PRN PRN Reason: FLUSH AFTER USING IV ACCESS Sodium Chloride (Ns Flush) 2 ml IV.FLUSH BID [facility] Last Admin: 07/20/18 08:08 Dose: 2 ml Sodium Chloride (Ns Flush) 2 ml IV.FLUSH PRN PRN PRN Reason: FLUSH AFTER USING IV ACCESS Sodium Chloride (Ns Flush) 0 ml IV.FLUSH DAILY [facility] Ticagrelor (Brilinta) 90 mg PO Q12H [facility] Last Admin: 07/20/18 10:46 Dose: 90 mg Physical Exam Vital signs: Vital Signs 07/19/18 14:15 07/19/18 17:00 07/19/18 18:00 Temperature 97.7 F 97.6 F Pulse Rate 48 L 62 60 Respiratory Rate 20 18 20 Blood Pressure 69/46 L 105/57 L 93/54 L Pulse Oximetry 100 100 99 07/19/18 19:00 07/19/18 19:30 07/19/18 19:47 Temperature Pulse Rate 60 64 62 Respiratory Rate 15 16 18 Blood Pressure 87/52 L 107/59 L 79/50 L Pulse Oximetry 98 100 100 07/19/18 20:00 07/19/18 20:05 07/19/18 20:30 Temperature 97.8 F Pulse Rate 63 66 64 Respiratory Rate 17 20 19 Blood Pressure 123/65 121/66 Pulse Oximetry 100 100 99 07/19/18 21:00 07/19/18 21:30 07/19/18 21:45 Temperature Pulse Rate 66 66 71 Respiratory Rate 19 19 15 Blood Pressure 106/61 102/58 L 114/62 Pulse Oximetry 98 99 99 07/19/18 22:00 07/19/18 22:30 07/19/18 22:45 Temperature Pulse Rate 66 67 66 Respiratory Rate 21 16 20 Blood Pressure 97/56 L 98/54 L 112/59 L Pulse Oximetry 99 98 99 07/19/18 22:54 07/19/18 23:00 07/20/18 00:00 Temperature 97.9 F Pulse Rate 62 66 71 Respiratory Rate 17 18 Blood Pressure 104/55 L 135/79 Pulse Oximetry 100 100 07/20/18 00:03 07/20/18 01:00 07/20/18 02:00 Temperature Pulse Rate 66 68 72 Respiratory Rate 20 20 17 Blood Pressure 101/56 L 105/60 Pulse Oximetry 98 07/20/18 02:30 07/20/18 03:00 07/20/18 03:15 Temperature Pulse Rate 67 65 65 Respiratory Rate 22 17 19 Blood Pressure 98/62 L 98/58 L 104/61 Pulse Oximetry 97 97 98 07/20/18 03:30 07/20/18 03:45 07/20/18 04:00 Temperature 97.7 F Pulse Rate 64 63 63 Respiratory Rate 17 17 19 Blood Pressure 101/59 L 105/64 109/59 L Pulse Oximetry 98 99 97 07/20/18 04:30 07/20/18 04:45 07/20/18 05:00 Temperature Pulse Rate 66 65 68 Respiratory Rate 29 H 17 28 H Blood Pressure 95/50 L 88/55 L 94/53 L Pulse Oximetry 99 97 96 07/20/18 05:30 07/20/18 05:45 07/20/18 06:00 Temperature Pulse Rate 73 65 63 Respiratory Rate 25 H 26 H 21 Blood Pressure 114/61 114/53 L 97/53 L Pulse Oximetry 96 97 85 L 07/20/18 06:15 07/20/18 06:30 07/20/18 06:45 Temperature Pulse Rate 65 63 64 Respiratory Rate 26 H 24 24 Blood Pressure 87/53 L 106/59 L 105/55 L Pulse Oximetry 98 95 97 07/20/18 07:00 07/20/18 07:11 07/20/18 07:15 Temperature Pulse Rate 67 63 63 Respiratory Rate 27 H 26 H 25 H Blood Pressure 100/56 L 99/58 L Pulse Oximetry 98 99 100 07/20/18 07:30 07/20/18 07:45 07/20/18 08:00 Temperature 99.2 F Pulse Rate 63 65 67 Respiratory Rate 20 17 15 Blood Pressure 86/54 L 88/52 L 94/53 L Pulse Oximetry 100 100 99 07/20/18 08:15 07/20/18 08:30 07/20/18 08:45 Temperature Pulse Rate 68 74 75 Respiratory Rate 28 H 33 H 27 H Blood Pressure 110/59 L 103/53 L 95/52 L Pulse Oximetry 99 98 99 07/20/18 09:00 07/20/18 09:09 07/20/18 09:15 Temperature Pulse Rate 74 77 79 Respiratory Rate 21 28 H 27 H Blood Pressure 66/51 L 86/52 L 108/59 L Pulse Oximetry 97 98 98 07/20/18 09:30 07/20/18 09:31 07/20/18 09:32 Temperature Pulse Rate 80 80 75 Respiratory Rate 28 H 23 23 Blood Pressure 76/49 L 71/45 L 83/48 L Pulse Oximetry 98 98 97 07/20/18 09:36 07/20/18 09:40 07/20/18 09:45 Temperature Pulse Rate 71 66 67 Respiratory Rate 26 H 25 H 25 H Blood Pressure 81/48 L 91/51 L 103/59 L Pulse Oximetry 98 98 98 07/20/18 10:00 07/20/18 10:15 07/20/18 10:30 Temperature Pulse Rate 66 66 67 Respiratory Rate 26 H 22 27 H Blood Pressure 104/58 L 113/63 106/60 Pulse Oximetry 98 98 97 07/20/18 10:45 07/20/18 11:00 Temperature Pulse Rate 65 72 Respiratory Rate 16 26 H Blood Pressure 104/59 L 111/60 Pulse Oximetry 98 98 Intake & Output 07/19/18 07/20/18 07/20/18 18:59 06:59 18:59 Intake Total 2250 / 2250 450 / 450 500 / 500 Output Total 900 / 900 Balance 2250 / 2250 -450 / -450 500 / 500 Weight 73 kg 72.6 kg Intake: IV 10 / 10 500 / 500 Heparin/NS PF Inj 1,000 ML @ 0 10 / 10 mls/hr .ROUTE .STK-MED ONE Rx#: [id number] DOPamine 800 MG/500 ML Premix 500 / 500 800 mg In 500 ml @ 5 MCG/KG/MIN 13.688 mls/hr IV.CONT TITRATE PRN Rx#:[id number] Oral 240 / 240 450 / 450 Anesthesia Amount 1999 / 1999 Output: Urine 900 / 900 Other: Date of Last Bowel Movement 07/19/18 07/19/18 07/19/18 # Bowel Movements 0 Weight On Admission 79.379 kg - Constitutional no acute distress - Routine HEENT Exam Head: Present: normocephalic Eye: Present: PERRL ENT: Present: mucous membranes moist - Routine Neck Exam Present: full ROM - Routine Respiratory Exam Present: CTA bilaterally - Routine Cardiovascular Exam Present: S1, S2. Absent: murmur, gallop, rubs - Routine Abdominal Exam Present: normoactive bowel sounds - Routine Extremities Exam Present: full ROM, pulses intact, normal capillary refill. Absent: cyanosis, clubbing, edema - Routine Skin Exam Present: intact - Routine Neurological Exam Present: oriented X3 - Detailed Neurological Exam: Coma Scale Eye Opening: Spontaneous Verbal Response: Oriented Motor Response: Obey commands Mozelle Coma Scale Total: 15 - Routine Psychiatric Exam Present: normal affect Results 07/20/18 05:03 07/20/18 05:03 Cardiac Enzymes 07/19/18 07/20/18 Range/Units 11:00 05:03 AST 131 H 354 H (15-37) U/L CK-MB (CK-2) 66.6 H (0.5-3.6) ng/mL Troponin I Greater than 40.00 H* (0.02-0.05) ng/mL Coagulation 07/19/18 07/20/18 Range/Units 11:00 05:03 PT 24.2 H 48.5 H D (9.8-11.6) sec APTT 35.8 H 44.8 H D (23.4-31.7) sec Lipids 07/20/18 Range/Units 05:03 Triglycerides 140 (42-150) mg/dL Cholesterol 167 (120-200) mg/dL HDL Cholesterol 35.4 L (40.0-60.0) mg/dL Cholesterol/HDL Ratio 4.71 Ratio CBC 07/19/18 07/20/18 Range/Units 11:00 05:03 WBC 9.7 10.9 (4.0-11.0) th/mm3 RBC 4.42 L 4.07 L (4.50-5.90) mil/mm3 Hgb 13.5 12.4 L (13.0-17.0) gm/dL Hct 40.0 35.8 L (39.0-51.0) % Plt Count 220 209 (150-450) th/mm3 Neut # (Auto) 7.5 8.2 H (1.8-7.7) th/mm3 Lymph # (Auto) 1.2 1.3 (1.0-4.8) th/mm3 [place] # (Auto) 0.7 1.2 H (0.0-0.9) th/mm3 Eos # (Auto) 0.3 0.2 (0.0-0.4) th/mm3 Baso # (Auto) 0.0 0.0 (0.0-0.2) th/mm3 Comprehensive Metabolic Panel 07/19/18 07/20/18 Range/Units 11:00 05:03 Sodium 137 139 (136-145) meq/L Potassium 4.5 4.3 (3.5-5.1) meq/L Chloride 107 108 H (98-107) meq/L Carbon Dioxide 20.4 L 22.6 (21.0-32.0) meq/L BUN 23 H 23 H (7-18) mg/dL Creatinine 1.63 H 1.60 H (0.60-1.30) mg/dL Calcium 9.3 7.9 L D (8.5-10.1) mg/dL AST 131 H 354 H (15-37) U/L ALT 30 57 (12-78) U/L Alkaline Phosphatase 66 60 (45-117) U/L Total Protein 7.3 6.2 L D (6.4-8.2) g/dL Albumin 3.7 3.1 L D (3.4-5.0) g/dL Intake and Output 07/19/18 07/20/18 07/20/18 22:59 06:59 14:59 Intake Total 240 / 240 450 / 450 500 / 500 Output Total 900 / 900 Balance 240 / 240 -450 / -450 500 / 500 Intake: IV 500 / 500 DOPamine 800 MG/500 ML Premix 500 / 500 800 mg In 500 ml @ 5 MCG/KG/MIN 13.688 mls/hr IV.CONT TITRATE PRN Rx#:[id number] Oral 240 / 240 450 / 450 Output: Urine 900 / 900 Other: Date of Last Bowel Movement 07/19/18 07/19/18 07/19/18 # Bowel Movements 0 Weight 72.6 kg - Imaging and Cardiology Imaging: Impressions Venous Doppler Study 07/19/18 00:00 CONCLUSION: 1. The study is negative for bilateral lower extremity deep venous thrombosis. Chest X-Ray 07/19/18 10:54 CONCLUSION: No evidence of significant congestion or acute airspace disease. Abdomen/Bladder Ultrasound 07/20/18 08:14 CONCLUSION: 1. Right renal cyst. 2. Increased echogenicity with thinning of the cortex bilaterally suggesting chronic renal disease without obstruction. Chest X-Ray 07/20/18 10:08 CONCLUSION: Line in good position Increasing bibasilar consolidative changes Assessment and Plan - Assessment (1) ST elevation myocardial infarction (STEMI) Code(s): I21.3 - ST elevation (STEMI) myocardial infarction of unspecified site Status: Acute (2) Diabetes mellitus Code(s): E11.9 - Type 2 diabetes mellitus without complications Status: Acute (3) Hypertension Code(s): I10 - Essential (primary) hypertension Status: Acute (4) Anticoagulated Code(s): Z79.01 - oysterman (current) use of anticoagulants Status: Acute (5) Acute inferior myocardial infarction Code(s): I21.19 - ST elevation (STEMI) myocardial infarction involving other coronary artery of inferior wall Status: Acute (6) Acute kidney injury Code(s): N17.9 - Acute kidney failure, unspecified Status: Acute (7) DVT (deep venous thrombosis) Code(s): I82.409 - Acute embolism and thrombosis of unspecified deep veins of unspecified lower extremity Status: Acute (8) Depression Code(s): F32.9 - Major depressive disorder, single episode, unspecified Status : Acute - Plan Patient had cardiac catheterization yesterday; thrombectomy of the RCA along with 3 bare metal stents placed in the RCA was performed. We will continue the Brilinta and baby ASA for full anticoagulation. Continue to monitor on telemetry and wean Dopamine as patient tolerates. We will continue to monitor the patient during his hospitalization. The patient was seen and evaluated by Dr. Hayes who participated in care, management and decision making. - Attending Attestation Patient seen and examined. I reviewed and agree with the evaluation and plan as presented. Continue post [place] care with Brilinta and baby ASA. Wean dopamine as tolerated. Continue ICU care. D/w pt and family. (1) ST elevation myocardial infarction (STEMI) Qualifiers: Involved coronary artery: other coronary artery Qualified Code(s): I21.29 - ST elevation (STEMI) myocardial infarction involving other sites (2) Diabetes mellitus Qualifiers: Diabetes mellitus type: type 2 Diabetes mellitus roasterman insulin use: without mcfp use Diabetes mellitus complication status: with unspecified complications Qualified Code(s): E11.8 - Type 2 diabetes mellitus with unspecified complications (3) Hypertension Qualifiers: Hypertension type: unspecified Qualified Code(s): I10 - Essential (primary) hypertension (7) DVT (deep venous thrombosis) Qualifiers: DVT location: lower extremity Affected thrombotic vein of extremity: unspecified vein of extremity Chronicity: chronic Laterality: right Qualified Code(s): 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
[2018-07-20] MEDS ORDERED: Phenol 1.4% 180 ML Spray Bottle OROPHARYNG PRN (15:00)
[2018-07-20 17:28] LABS: Hemoglobin A1c 5.7 % (4.3-6.0)
--- NOTE | 2018-07-20 23:16 | ECG ---
Date Performed: 07/19/2018 Time Performed: 11:02:47 PTAGE: 72 years EKG: SINUS BRADYCARDIA RIGHT BUNDLE BRANCH BLOCK INFERIOR ST ELEVATION MYOCARDIAL INFARCTION ACUTE AK NO PREVIOUS TRACING DOCTOR: Marcelo Kern Interpretating Date/Time 07/20/2018 23:15:05
[2018-07-21] MEDS: Insulin NovoLOG Aspart Correctional Sugar Inj SQ SCH ×5 (02:02→23:56)
[2018-07-21] MEDS: Chlorhexidine Gluconate 2% 1 Pack (2 Cloths) TOPICAL SCH (04:45)
[2018-07-21] MEDS: DOPamine 800 MG/500 ML Premix 800 MG/500 ML PLAST..BAG IV.CONT PRN (04:45)
[2018-07-21 06:02] LABS: Activated Partial Thrombo Time 44.3 sec (23.4-31.7); INR 2.6 Ratio; Prothrombin Time 25.9 sec (9.8-11.6)
[2018-07-21 06:18] LABS: Carbon Dioxide 22.9 meq/L (21.0-32.0)
[2018-07-21 06:19] LABS: Calcium 8.1 mg/dL (8.5-10.1); Magnesium 2.1 mg/dL (1.5-2.5); Phosphorus 3.1 mg/dL (2.5-4.9)
--- NOTE | 2018-07-21 08:08 | P.PNCC ---
Subjective Subjective Remarks/Hospital Course: This is a 72-year-old male. Date of admission 07/19/2018. Patient was taken straight to the [facility] and appears in room 525 on a dopamine drip at 7.5 mcg/kg/min. Patient was originally counseled the hospitalist but they consulted us for management. In reviewing the records, patient with history of depression on Adderall, hypertension, diabetes and ongoing tobaccoism. He is also on chronic warfarin for history of right lower extremity deep venous thrombosis. Today he presents to [facility] with a 36-hour history of ongoing chest pain, describes as squeezing his chest without radiation. States is 10 out of 10. And substernal in nature. EKG revealed ST elevation in inferior leads. Troponin greater than 40. Also no creatinine was elevated 1.6. INR is 2.4. During the cardiac catheterization , patient was noted to have's ejection fraction 30%. 0% stenosis left main. 70 % mid LAD. 6% diagonal. 40% OM. 100% RCA. Patient had bare-metal stents x3 placed in the RCA by 30 mm, 2.75 x 26 mm in 2.5 x 26 mm. Patient was recently admitted to the hospital service but patient remains on a dopamine drip at 7.5 mg/kg/min. Patient currently denies chest pain is asking for his psychiatric medications and water. Denies chest pain currently. 07/20: Afebrile. Remains on dopamine drip at 8 mcg/kg/min. Unable to wean. Will need central line. Appears stable. Intermittently short of breath. Denies chest pain currently. SUBJECTIVE: 07/21: Afebrile. Remains on dopamine drip at 8 mcg/kg/min. Unable to wean. Right internal jugular vein central line placed yesterday. Intermittently short of breath. Denies chest pain currently. Tolerating diet. Objective Vital Signs / I&O: Vital Signs 07/20/18 08:15 07/20/18 08:30 07/20/18 08:45 Temperature Pulse Rate 68 74 75 Respiratory Rate 28 H 33 H 27 H Blood Pressure 110/59 L 103/53 L 95/52 L Pulse Oximetry 99 98 99 07/20/18 09:00 07/20/18 09:09 07/20/18 09:15 Temperature Pulse Rate 74 77 79 Respiratory Rate 21 28 H 27 H Blood Pressure 66/51 L 86/52 L 108/59 L Pulse Oximetry 97 98 98 07/20/18 09:30 07/20/18 09:31 07/20/18 09:32 Temperature Pulse Rate 80 80 75 Respiratory Rate 28 H 23 23 Blood Pressure 76/49 L 71/45 L 83/48 L Pulse Oximetry 98 98 97 07/20/18 09:36 07/20/18 09:40 07/20/18 09:45 Temperature Pulse Rate 71 66 67 Respiratory Rate 26 H 25 H 25 H Blood Pressure 81/48 L 91/51 L 103/59 L Pulse Oximetry 98 98 98 07/20/18 10:00 07/20/18 10:15 07/20/18 10:30 Temperature Pulse Rate 66 66 67 Respiratory Rate 26 H 22 27 H Blood Pressure 104/58 L 113/63 106/60 Pulse Oximetry 98 98 97 07/20/18 10:45 07/20/18 11:00 07/20/18 11:15 Temperature Pulse Rate 65 72 66 Respiratory Rate 16 26 H 27 H Blood Pressure 104/59 L 111/60 113/62 Pulse Oximetry 98 98 99 07/20/18 11:30 07/20/18 11:45 07/20/18 12:00 Temperature 99.5 F Pulse Rate 76 70 82 Respiratory Rate 26 H 22 16 Blood Pressure 124/73 115/64 121/62 Pulse Oximetry 98 98 97 07/20/18 12:03 07/20/18 12:15 07/20/18 12:30 Temperature Pulse Rate 79 75 76 Respiratory Rate 18 26 H 21 Blood Pressure 121/62 108/56 L Pulse Oximetry 98 97 07/20/18 12:45 07/20/18 13:00 07/20/18 13:15 Temperature Pulse Rate 86 86 78 Respiratory Rate 27 H 17 19 Blood Pressure 116/57 L 123/62 110/58 L Pulse Oximetry 95 97 97 07/20/18 13:30 07/20/18 13:45 07/20/18 14:00 Temperature Pulse Rate 77 74 80 Respiratory Rate 18 15 26 H Blood Pressure 101/56 L 100/56 L 98/56 L Pulse Oximetry 98 98 98 07/20/18 14:15 07/20/18 14:30 07/20/18 14:45 Temperature Pulse Rate 79 77 69 Respiratory Rate 23 25 H 24 Blood Pressure 116/65 99/53 L 112/57 L Pulse Oximetry 97 97 97 07/20/18 15:00 07/20/18 15:15 07/20/18 15:30 Temperature Pulse Rate 64 70 66 Respiratory Rate 20 22 15 Blood Pressure 107/56 L 114/63 103/59 L Pulse Oximetry 98 98 99 07/20/18 15:45 07/20/18 16:00 07/20/18 18:00 Temperature 99.4 F Pulse Rate 73 66 81 Respiratory Rate 29 H 21 26 H Blood Pressure 99/55 L 100/55 L Pulse Oximetry 99 98 89 L 07/20/18 18:02 07/20/18 18:15 07/20/18 18:30 Temperature Pulse Rate 80 83 82 Respiratory Rate 27 H 26 H 27 H Blood Pressure 90/53 L 96/56 L 86/53 L Pulse Oximetry 98 98 98 07/20/18 18:45 07/20/18 19:00 07/20/18 19:15 Temperature Pulse Rate 81 77 71 Respiratory Rate 21 27 H 22 Blood Pressure 126/59 L 105/57 L 101/53 L Pulse Oximetry 98 99 98 07/20/18 19:30 07/20/18 19:45 07/20/18 20:00 Temperature 97.6 F Pulse Rate 73 67 72 Respiratory Rate 22 22 22 Blood Pressure 117/55 L 117/60 114/55 L Pulse Oximetry 99 100 99 07/20/18 20:15 07/20/18 20:25 07/20/18 20:28 Temperature Pulse Rate 66 71 Respiratory Rate 23 18 Blood Pressure 107/55 L Pulse Oximetry 99 98 07/20/18 20:30 07/20/18 20:45 07/20/18 21:00 Temperature Pulse Rate 69 71 79 Respiratory Rate 21 22 20 Blood Pressure 111/61 114/60 120/68 Pulse Oximetry 100 100 98 07/20/18 21:15 07/20/18 21:30 07/20/18 21:45 Temperature Pulse Rate 74 69 71 Respiratory Rate 20 18 18 Blood Pressure 115/64 100/58 L 112/65 Pulse Oximetry 99 100 99 07/20/18 22:00 07/20/18 22:15 07/20/18 22:30 Temperature Pulse Rate 77 78 76 Respiratory Rate 24 22 22 Blood Pressure 117/68 112/59 L 105/58 L Pulse Oximetry 100 98 97 07/20/18 22:45 07/20/18 23:00 07/20/18 23:15 Temperature Pulse Rate 79 68 66 Respiratory Rate 22 18 14 Blood Pressure 101/55 L 108/58 L 123/60 Pulse Oximetry 98 99 99 07/20/18 23:30 07/20/18 23:45 07/20/18 23:49 Temperature Pulse Rate 71 77 72 Respiratory Rate 21 23 20 Blood Pressure 122/60 Pulse Oximetry 98 98 07/21/18 00:00 07/21/18 00:30 07/21/18 00:45 Temperature 97.8 F Pulse Rate 78 84 77 Respiratory Rate 25 H 23 21 Blood Pressure 111/55 L 113/68 115/64 Pulse Oximetry 97 96 97 07/21/18 01:00 07/21/18 01:15 07/21/18 01:30 Temperature Pulse Rate 90 87 89 Respiratory Rate 23 17 20 Blood Pressure 110/63 97/60 L 114/60 Pulse Oximetry 97 98 97 07/21/18 01:45 07/21/18 02:00 07/21/18 02:15 Temperature Pulse Rate 84 75 82 Respiratory Rate 20 20 22 Blood Pressure 113/63 109/62 116/64 Pulse Oximetry 96 96 96 07/21/18 02:30 07/21/18 02:45 07/21/18 03:00 Temperature Pulse Rate 73 73 79 Respiratory Rate 20 22 20 Blood Pressure 109/59 L 109/59 L 120/63 Pulse Oximetry 97 96 96 07/21/18 03:15 07/21/18 03:30 07/21/18 04:00 Temperature 98.4 F Pulse Rate 74 69 71 Respiratory Rate 17 21 15 Blood Pressure 112/62 118/61 115/59 L Pulse Oximetry 96 97 97 07/21/18 04:04 07/21/18 04:15 07/21/18 04:30 Temperature Pulse Rate 73 77 80 Respiratory Rate 20 23 24 Blood Pressure 107/56 L 98/54 L Pulse Oximetry 96 96 07/21/18 04:45 07/21/18 05:00 07/21/18 05:22 Temperature Pulse Rate 84 89 80 Respiratory Rate 24 29 H 26 H Blood Pressure 105/57 L 115/59 L 107/56 L Pulse Oximetry 97 93 L 97 07/21/18 05:45 07/21/18 06:00 07/21/18 06:15 Temperature Pulse Rate 78 78 74 Respiratory Rate 21 19 21 Blood Pressure 117/56 L 114/61 105/58 L Pulse Oximetry 99 97 97 07/21/18 06:30 Temperature Pulse Rate 76 Respiratory Rate 19 Blood Pressure 122/62 Pulse Oximetry 97 Intake & Output 07/20/18 07/21/18 07/21/18 18:59 06:59 18:59 Intake Total 600 / 600 950 / 950 Output Total 500 / 500 1800 / 1800 Balance 100 / 100 -850 / -850 Weight 76.1 kg Intake: IV 600 / 600 500 / 500 DOPamine 800 MG/500 ML Premix 500 / 500 500 / 500 800 mg In 500 ml @ 5 MCG/KG/MIN 13.688 mls/hr IV.CONT TITRATE PRN Rx#:[id number] Magnesium Sulfate Inj 2 GM In 100 / 100 NS Inj 96 ML @ 50 mls/hr IV.SIG ONCE ONE Rx#:[id number] Oral 450 / 450 Output: Urine 500 / 500 1800 / 1800 Other: Date of Last Bowel Movement 07/19/18 07/19/18 # Bowel Movements 0 Result Diagrams: 07/20/18 05:03 07/21/18 05:30 Imaging: Venous Doppler Study 07/19/18 00:00 CONCLUSION: 1. The study is negative for bilateral lower extremity deep venous thrombosis. Chest X-Ray 07/19/18 10:54 CONCLUSION: No evidence of significant congestion or acute airspace disease. Abdomen/Bladder Ultrasound 07/20/18 08:14 CONCLUSION: 1. Right renal cyst. 2. Increased echogenicity with thinning of the cortex bilaterally suggesting chronic renal disease without obstruction. Chest X-Ray 07/20/18 10:08 CONCLUSION: Line in good position Increasing bibasilar consolidative changes Objective Remarks: GENERAL: This is a 72-year-old male currently resting in bed in no acute distress SKIN: Warm and dry. No rash HEAD: Atraumatic. Normocephalic. EYES: Pupils equal and round. No scleral icterus. No injection or drainage. ENT: No nasal bleeding or discharge. Mucous membranes pink and moist. NECK: Trachea midline. No JVD. Right IJ is clean dry and intact CARDIOVASCULAR: Regular rate and rhythm. S1, S2. No S4. RESPIRATORY: No accessory muscle use. Clear to auscultation. Breath sounds equal bilaterally. GASTROINTESTINAL: Abdomen soft, non-tender, nondistended. Hypoactive bowel sounds appreciated. MUSCULOSKELETAL: Extremities without clubbing, cyanosis, or edema. No obvious deformities. Right inguinal region without hematoma NEUROLOGICAL: Awake and alert. No obvious cranial nerve deficits. Motor grossly within normal limits. Five out of 5 muscle strength in the arms and legs. Normal speech. PSYCHIATRIC: Appropriate mood and affect; insight and judgment normal. Assessment and Plan - Problem List (1) Depression Code(s): F32.9 - Major depressive disorder, single episode, unspecified Status : Acute (2) DVT (deep venous thrombosis) Code(s): I82.409 - Acute embolism and thrombosis of unspecified deep veins of unspecified lower extremity Status: Acute (3) Acute kidney injury Code(s): N17.9 - Acute kidney failure, unspecified Status: Acute (4) Coronary artery disease Code(s): I25.10 - Atherosclerotic heart disease of [place] coronary artery without angina pectoris Status: Acute (5) Acute inferior myocardial infarction Code(s): I21.19 - ST elevation (STEMI) myocardial infarction involving other coronary artery of inferior wall Status: Acute (6) Essential hypertension Code(s): I10 - Essential (primary) hypertension Status: Acute (7) Diabetes mellitus Code(s): E11.9 - Type 2 diabetes mellitus without complications Status: Acute (8) Anticoagulated Code(s): Z79.01 - lobsterman (current) use of anticoagulants Status: Acute - Assessment and Plan Plan: Neuro/Psych: Major depressive disorder SOS Continue bupropion 150 mg 3 times daily, escitalopram 20 mg daily and pramipexole 1 mg daily Cardiology request holding dextroamphetamine/amphetamine for now. Acetaminophen 650 p.o. every 6 hours as needed fever Hydrocodone/acetaminophen 5/325 1 tablet every 4 hours as needed pain 1 through 5 Morphine sulfate 2 mg every 2 hours as needed pain 6 through 10 CV: Acute inferior TX History of essential hypertension Hyperlipidemia with elevated LDL Coronary artery disease Status post cardiac catheterization by Dr. Hayes Ejection fraction 30% per cardiac catheterization report Left main 0%. LAD 70%. Diagonal 60%. OM 40% mid RCA 100 percent Status post bare-metal stent to RCA x3 Antiplatelet management per cardiology. Continue on ticagrelor 90 mg twice daily for dual action platelet therap with aspirin 81 mg daily okay with cardiology Atorvastatin 10 milligrams daily for dyslipidemia change to pravastatin 40 mg daily No beta-paulo and JUDY inhibitor while hypotensive Home medications verapamil 120 mg daily. This is currently on hold Continue tirofiban drip 6 AM on 07/20 On dopamine drip at 8 microgram/kg/minute to maintain mean artery pressure critical 65. Wean off as tolerated. Holding home medication of losartan 100 mg daily, verapamil 120 mg daily and triamterene/hydrochlorothiazide 37.5/25 1 tablet daily while on vasopressors Resp: Ongoing tobaccoism Nasal cannula to maintain saturations greater than equal to 92% Incentive spirometry while awake Albuterol/ipratropium aerosols every 4 hours with albuterol aerosols every 2 hours as needed dyspnea Tobacco cessation will be encouraged with self evaluation booklet to be provided GI: Elevated AST -likely cardiac Hypoalbuminemia Cardiac/diabetic diet to be initiated Pantoprazole for GI prophylaxis Docusate sodium/senna 1 tablet twice daily for bowel regimen : Straight catheterization as needed Endo: Diabetes mellitus Holding metformin 1000 mg twice daily in light of acute kidney injury/recent IV contrast load Sliding scale insulin aspart insulin with Accu-Cheks every 6 hours to maintain euglycemia Hemoglobin A1c was 5.7 TSH is 0.733 We will check cortisol level today. Renal: Acute kidney injury Unknown baseline Monitor urine output Accurate I's and O's Recheck BMP in a.m. Check urine eosinophils, sodium, creatinine -Renal ultrasound revealed no hydronephrosis. Cortical thinning indicative of medical renal disease Heme: History of right lower extremity DVT Chronic warfarin use Normocytic anemia INR is two-point6. Recent warfarin 2.5 mg daily. Pharmacy consultation for management ID: Monitor for signs and symptomatology infection FEN: Replace electrolytes as clinically indicated MSK: Out of bed/PT evaluate and treat when indicated Access -Utilize peripheral IV. Central line if indicated Prophylaxis -GI -pantoprazole -DVT -SCD/warfarin anticoagulation Level 3 follow-up (1) Depression Qualifiers: Depression Type: unspecified Qualified Code(s): F32.9 - Major depressive disorder, single episode, unspecified (2) DVT (deep venous thrombosis) Qualifiers: DVT location: lower extremity Affected thrombotic vein of extremity: unspecified vein of extremity Chronicity: chronic Laterality: right Qualified Code(s): I82.501 - Chronic embolism and thrombosis of unspecified deep veins of right lower extremity (4) Coronary artery disease Qualifiers: Coronary Disease-Associated Artery/Lesion type: [place] artery [place] vs. transplanted heart: ramona heart Associated angina: angina presence unspecified Qualified Code(s): I25.10 - Atherosclerotic heart disease of [place] coronary artery without angina pectoris (7) Diabetes mellitus Qualifiers: Diabetes mellitus type: type 2 Diabetes mellitus senior care insulin use: without senior care use Diabetes mellitus complication status: with unspecified complications Qualified Code(s): E11.8 - Type 2 diabetes mellitus with unspecified complications
[2018-07-21] MEDS: Senna/Docusate Sodium 8.6/50 MG Tablet PO SCH ×2 (09:14→21:01)
[2018-07-21] MEDS: Pantoprazole Inj 40 MG Vial IV.PUSH SCH (09:14)
[2018-07-21] MEDS: buPROPion 75 MG Tablet PO SCH ×3 (09:15→17:26)
--- NOTE | 2018-07-21 18:58 | P.PNCA ---
Subjective Interval history: No CP or SOB, on 6 mcg/kg/min dopamine, BP remains stable Medications and Allergies Active Medications: Active Medications Acetaminophen (Tylenol) 650 mg PO Q6H PRN PRN Reason: Fever >101f Hydrocodone Bitart/Acetaminophen (Neal 5/325) 1 tab PO Q4H PRN PRN Reason: PAIN SCALE 1 TO 5 Al Hydroxide/Mg Hydroxide (Milk Of Magnsanthosh Liq) 30 ml PO Q12H PRN PRN Reason: Mild Constipation Albuterol (Albuterol Neb (Prn)) 2.5 mg NEB Q2HR NEB PRN PRN Reason: SHORTNESS OF BREATH/WHEEZING Albuterol (Duoneb Neb ([facility])) 1 ampul NEB Q4HR NEB [facility] Last Admin: 07/21/18 15:12 Dose: 1 ampul Aspirin (Aspirin Chew) 81 mg PO DAILY [facility] Last Admin: 07/21/18 09:12 Dose: 81 mg Bisacodyl (Dulcolax Supp) 10 mg RECTAL DAILY PRN PRN Reason: SEVERE CONSITIPATION Bupropion HCl (Wellbutrin) 150 mg PO TID [facility] Last Admin: 07/21/18 17:26 Dose: 150 mg Chlorhexidine Gluconate (Chlorhexidine 2% Cloth) 3 pack TOPICAL DAILY@0400 [facility] Stop: 07/25/18 03:59 Last Admin: 07/21/18 04:45 Dose: 3 pack Chlorhexidine Gluconate (Chlorhexidine 2% Cloth) 3 pack TOPICAL DAILY@0400 PRN PRN Reason: Extra cloth needed Stop: 07/25/18 03:59 Dextrose (D50w Vial) 50 ml IV.PUSH UNSCH PRN PRN Reason: PER HYPOGLYCEMIA PROTOCOL Escitalopram Oxalate (Lexapro) 20 mg PO DAILY [facility] Last Admin: 07/21/18 09:13 Dose: 20 mg Glucagon (Glucagon Inj) 1 mg OTHER PRN PRN PRN Reason: for Hypoglycemia Protocol Hydromorphone HCl (Dilaudid Pf Inj) 1 mg IV.PUSH Q4H PRN PRN Reason: PAIN SCALE 6 TO 10 Dopamine HCl/Dextrose (Dopamine 800 Mg/500 Ml Premix) 800 mg in 500 mls @ 13.688 mls/hr IV.CONT TITRATE PRN; Protocol PRN Reason: Per Protocol Last Admin: 07/21/18 04:45 Dose: 6 mcg/kg/min, 16.43 mls/hr Magnesium Sulfate 4 gm/ Sodium (Chloride) 100 mls @ 50 mls/hr IV.SIG UNSCH PRN PRN Reason: For Magnesium 0.9 - 1.1 mg/dL Magnesium Sulfate 2 gm/ Sodium (Chloride) 100 mls @ 50 mls/hr IV.SIG UNSCH PRN PRN Reason: For Magnesium 1.2 - 1.6 mg/dL Potassium Chloride (Kcl 40 Meq Premix Inj) 40 meq in 100 mls @ 25 mls/hr IV.SIG Q2H PRN PRN Reason: For Potassium 2.8 - 3.2 mEq/L Potassium Chloride (Kcl 20 Meq Premix Inj) 20 meq in 100 mls @ 50 mls/hr IV.SIG Q2H PRN PRN Reason: For Potassium 3.3 - 3.5 mEq/L Potassium Chloride (Kcl 40 Meq Premix Inj) 40 meq in 100 mls @ 25 mls/hr IV.SIG UNSCH PRN PRN Reason: For Potassium 3.3 - 3.5 mEq/L Potassium Chloride (Kcl 20 Meq Premix Inj) 20 meq in 100 mls @ 50 mls/hr IV.SIG Q2H PRN PRN Reason: For Potassium 2.8 - 3.2 mEq/L Potassium Phosphate 30 mmol/ (Sodium Chloride) 260 mls @ 42 mls/hr IV.SIG UNSCH PRN PRN Reason: SEE LABEL COMMENTS Sodium Phosphate 30 mmol/ (Sodium Chloride) 260 mls @ 42 mls/hr IV.SIG UNSCH PRN PRN Reason: For Phosphorus < 2.5 mg/dL Sodium Chloride (Ns Inj) 1,000 mls @ 2,000 mls/hr IV.SIG Q30M [facility] Stop: 07/21/18 18:59 Insulin Aspart (Novolog Insulin [employer] Sugar Inj) 0 unit SQ Q6HR [facility]; Protocol Last Admin: 07/21/18 17:26 Dose: Not Given Lactulose (Lactulose Liq) 30 ml PO DAILY PRN PRN Reason: SEVERE CONSITIPATION Magnesium Oxide (Mag-Ox) 800 mg PO UNSCH PRN PRN Reason: For Magnesium 1.2 - 1.6 mg/dL Pantoprazole Sodium (Protonix Inj) 40 mg IV.PUSH DAILY [facility] Last Admin: 07/21/18 09:14 Dose: 40 mg Pharmacy Profile Note (Coumadin Consult Pharmacy) 1 each OTHER UNSCH PRN PRN Reason: PHARMACY DOCUMENTATION Potassium Bicarb/Potassium Chloride (K-Lyte Cl Eff) 50 meq PO UNSCH PRN PRN Reason: For Potassium 3.3 - 3.5 mEq/L Potassium Phosphate (K-Phos Original) 2,000 mg PO Q4H PRN PRN Reason: Phosphorus Less Than 2.5 mg/dL Potassium Phosphate (K-Phos Original) 2,000 mg PO UNSCH PRN PRN Reason: SEE LABEL COMMENTS Pramipexole Dihydrochloride (Mirapex) 1 mg PO DAILY [facility] Last Admin: 07/21/18 13:10 Dose: 1 mg Pravastatin Sodium (Pravachol) 40 mg PO HS [facility] Last Admin: 07/20/18 20:38 Dose: 40 mg Senna/Docusate Sodium ([place]-Colace) 1 tab PO BID [facility] Last Admin: 07/21/18 09:14 Dose: Not Given Sennosides (Senokot) 17.2 mg PO Q12H PRN PRN Reason: Moderate Constipation Sodium Chloride (Ns Flush) 2 ml IV.FLUSH BID [facility] Last Admin: 07/21/18 09:13 Dose: 2 ml Sodium Chloride (Ns Flush) 2 ml IV.FLUSH PRN PRN PRN Reason: FLUSH AFTER USING IV ACCESS Sodium Chloride (Ns Flush) 0 ml IV.FLUSH DAILY [facility] Last Admin: 07/21/18 09:13 Dose: 10 ml Throat Lozenges (Chloraseptic [place]) 2 spray OROPHARYNG Q2H PRN PRN Reason: SORE THROAT Last Admin: 07/20/18 22:05 Dose: 2 spray Ticagrelor (Brilinta) 90 mg PO Q12H [facility] Last Admin: 07/21/18 13:09 Dose: 90 mg Warfarin Sodium (Coumadin) 2.5 mg PO DAILY@1600 [facility] Last Admin: 07/21/18 16:30 Dose: 2.5 mg Allergies Allergy/AdvReac Type Severity Reaction Status Date / Time No Known Allergies Allergy Verified 07/19/18 10:54 Home Medications Medication Instructions Recorded Confirmed Type metformin 1,000 mg PO BID 07/19/18 07/19/18 History verapamil 120 mg PO DAILY 07/19/18 07/19/18 History warfarin [Coumadin] 2.5 mg PO DAILY 07/19/18 07/19/18 History Physical Exam Vital signs: Vital Signs 07/20/18 19:00 07/20/18 19:15 07/20/18 19:30 Temperature Pulse Rate 77 71 73 Respiratory Rate 27 H 22 22 Blood Pressure 105/57 L 101/53 L 117/55 L Pulse Oximetry 99 98 99 07/20/18 19:45 07/20/18 20:00 07/20/18 20:15 Temperature 97.6 F Pulse Rate 67 72 66 Respiratory Rate 22 22 23 Blood Pressure 117/60 114/55 L 107/55 L Pulse Oximetry 100 99 99 07/20/18 20:25 07/20/18 20:28 07/20/18 20:30 Temperature Pulse Rate 71 69 Respiratory Rate 18 21 Blood Pressure 111/61 Pulse Oximetry 98 100 07/20/18 20:45 07/20/18 21:00 07/20/18 21:15 Temperature Pulse Rate 71 79 74 Respiratory Rate 22 20 20 Blood Pressure 114/60 120/68 115/64 Pulse Oximetry 100 98 99 07/20/18 21:30 07/20/18 21:45 07/20/18 22:00 Temperature Pulse Rate 69 71 77 Respiratory Rate 18 18 24 Blood Pressure 100/58 L 112/65 117/68 Pulse Oximetry 100 99 100 07/20/18 22:15 07/20/18 22:30 07/20/18 22:45 Temperature Pulse Rate 78 76 79 Respiratory Rate 22 22 22 Blood Pressure 112/59 L 105/58 L 101/55 L Pulse Oximetry 98 97 98 07/20/18 23:00 07/20/18 23:15 07/20/18 23:30 Temperature Pulse Rate 68 66 71 Respiratory Rate 18 14 21 Blood Pressure 108/58 L 123/60 122/60 Pulse Oximetry 99 99 98 07/20/18 23:45 07/20/18 23:49 07/21/18 00:00 Temperature 97.8 F Pulse Rate 77 72 78 Respiratory Rate 23 20 25 H Blood Pressure 111/55 L Pulse Oximetry 98 97 07/21/18 00:30 07/21/18 00:45 07/21/18 01:00 Temperature Pulse Rate 84 77 90 Respiratory Rate 23 21 23 Blood Pressure 113/68 115/64 110/63 Pulse Oximetry 96 97 97 07/21/18 01:15 07/21/18 01:30 07/21/18 01:45 Temperature Pulse Rate 87 89 84 Respiratory Rate 17 20 20 Blood Pressure 97/60 L 114/60 113/63 Pulse Oximetry 98 97 96 07/21/18 02:00 07/21/18 02:15 07/21/18 02:30 Temperature Pulse Rate 75 82 73 Respiratory Rate 20 22 20 Blood Pressure 109/62 116/64 109/59 L Pulse Oximetry 96 96 97 07/21/18 02:45 07/21/18 03:00 07/21/18 03:15 Temperature Pulse Rate 73 79 74 Respiratory Rate 22 20 17 Blood Pressure 109/59 L 120/63 112/62 Pulse Oximetry 96 96 96 07/21/18 03:30 07/21/18 04:00 07/21/18 04:04 Temperature 98.4 F Pulse Rate 69 71 73 Respiratory Rate 21 15 20 Blood Pressure 118/61 115/59 L Pulse Oximetry 97 97 07/21/18 04:15 07/21/18 04:30 07/21/18 04:45 Temperature Pulse Rate 77 80 84 Respiratory Rate 23 24 24 Blood Pressure 107/56 L 98/54 L 105/57 L Pulse Oximetry 96 96 97 07/21/18 05:00 07/21/18 05:22 07/21/18 05:45 Temperature Pulse Rate 89 80 78 Respiratory Rate 29 H 26 H 21 Blood Pressure 115/59 L 107/56 L 117/56 L Pulse Oximetry 93 L 97 99 07/21/18 06:00 07/21/18 06:15 07/21/18 06:30 Temperature Pulse Rate 78 74 76 Respiratory Rate 19 21 19 Blood Pressure 114/61 105/58 L 122/62 Pulse Oximetry 97 97 97 07/21/18 08:00 07/21/18 10:00 07/21/18 12:00 Temperature 98.4 F 98 F Pulse Rate 69 77 86 Respiratory Rate 18 25 H Blood Pressure 111/62 75/49 L Pulse Oximetry 97 97 07/21/18 12:06 07/21/18 14:00 07/21/18 15:25 Temperature Pulse Rate 74 76 68 Respiratory Rate 20 16 Blood Pressure Pulse Oximetry 99 07/21/18 16:00 07/21/18 18:00 Temperature 98.2 F Pulse Rate 71 75 Respiratory Rate 21 Blood Pressure 110/58 L Pulse Oximetry 97 Intake & Output 07/20/18 07/21/18 07/21/18 18:59 06:59 18:59 Intake Total 850 / 850 950 / 950 350 / 350 Output Total 500 / 500 1800 / 1800 900 / 900 Balance 350 / 350 -850 / -850 -550 / -550 Weight 167 lb 12.348 oz Intake: IV 850 / 850 500 / 500 DOPamine 800 MG/500 ML Premix 500 / 500 500 / 500 800 mg In 500 ml @ 5 MCG/KG/MIN 13.688 mls/hr IV.CONT TITRATE PRN Rx#:[id number] Magnesium Sulfate Inj 2 GM In 100 / 100 NS Inj 96 ML @ 50 mls/hr IV.SIG ONCE ONE Rx#:[id number] Oral 450 / 450 350 / 350 Output: Urine 500 / 500 1800 / 1800 900 / 900 Other: Date of Last Bowel Movement 07/19/18 07/19/18 07/19/18 # Bowel Movements 0 0 Narrative: In NAD Lung clear Cor reg, no murmur or gallop Abd soft No LE edema Neuro grossly nonfocal Results 07/20/18 05:03 07/21/18 05:30 Cardiac Enzymes 07/20/18 Range/Units 05:03 AST 354 H (15-37) U/L Coagulation 07/20/18 07/21/18 Range/Units 05:03 05:30 PT 48.5 H D 25.9 H D (9.8-11.6) sec APTT 44.8 H D 44.3 H (23.4-31.7) sec Lipids 07/20/18 Range/Units 05:03 Triglycerides 140 (42-150) mg/dL Cholesterol 167 (120-200) mg/dL HDL Cholesterol 35.4 L (40.0-60.0) mg/dL Cholesterol/HDL Ratio 4.71 Ratio CBC 07/20/18 Range/Units 05:03 WBC 10.9 (4.0-11.0) th/mm3 RBC 4.07 L (4.50-5.90) mil/mm3 Hgb 12.4 L (13.0-17.0) gm/dL Hct 35.8 L (39.0-51.0) % Plt Count 209 (150-450) th/mm3 Neut # (Auto) 8.2 H (1.8-7.7) th/mm3 Lymph # (Auto) 1.3 (1.0-4.8) th/mm3 [place] # (Auto) 1.2 H (0.0-0.9) th/mm3 Eos # (Auto) 0.2 (0.0-0.4) th/mm3 Baso # (Auto) 0.0 (0.0-0.2) th/mm3 Comprehensive Metabolic Panel 07/20/18 07/21/18 Range/Units 05:03 05:30 Sodium 139 138 (136-145) meq/L Potassium 4.3 4.0 (3.5-5.1) meq/L Chloride 108 H 107 (98-107) meq/L Carbon Dioxide 22.6 22.9 (21.0-32.0) meq/L BUN 23 H 26 H (7-18) mg/dL Creatinine 1.60 H 1.74 H (0.60-1.30) mg/dL Calcium 7.9 L D 8.1 L (8.5-10.1) mg/dL AST 354 H (15-37) U/L ALT 57 (12-78) U/L Alkaline Phosphatase 60 (45-117) U/L Total Protein 6.2 L D (6.4-8.2) g/dL Albumin 3.1 L D (3.4-5.0) g/dL Intake and Output 07/21/18 07/21/18 07/21/18 06:59 14:59 22:59 Intake Total 950 / 950 350 / 350 Output Total 1800 / 1800 900 / 900 Balance -850 / -850 -900 / -900 350 / 350 Intake: IV 500 / 500 DOPamine 800 MG/500 ML Premix 500 / 500 800 mg In 500 ml @ 5 MCG/KG/MIN 13.688 mls/hr IV.CONT TITRATE PRN Rx#:[id number] Oral 450 / 450 350 / 350 Output: Urine 1800 / 1800 900 / 900 Other: Date of Last Bowel Movement 07/19/18 07/19/18 07/19/18 # Bowel Movements 0 0 Weight 167 lb 12.348 oz - Imaging and Cardiology Imaging: Impressions Venous Doppler Study 07/19/18 00:00 CONCLUSION: 1. The study is negative for bilateral lower extremity deep venous thrombosis. Abdomen/Bladder Ultrasound 07/20/18 08:14 CONCLUSION: 1. Right renal cyst. 2. Increased echogenicity with thinning of the cortex bilaterally suggesting chronic renal disease without obstruction. Chest X-Ray 07/20/18 10:08 CONCLUSION: Line in good position Increasing bibasilar consolidative changes Assessment and Plan - Assessment (1) ST elevation myocardial infarction (STEMI) Code(s): I21.3 - ST elevation (STEMI) myocardial infarction of unspecified site Status: Acute (2) Diabetes mellitus Code(s): E11.9 - Type 2 diabetes mellitus without complications Status: Acute (3) Hypertension Code(s): I10 - Essential (primary) hypertension Status: Acute (4) Anticoagulated Code(s): Z79.01 - intermediate (current) use of anticoagulants Status: Acute (5) Acute inferior myocardial infarction Code(s): I21.19 - ST elevation (STEMI) myocardial infarction involving other coronary artery of inferior wall Status: Acute (6) Acute kidney injury Code(s): N17.9 - Acute kidney failure, unspecified Status: Acute (7) DVT (deep venous thrombosis) Code(s): I82.409 - Acute embolism and thrombosis of unspecified deep veins of unspecified lower extremity Status: Acute (8) Depression Code(s): F32.9 - Major depressive disorder, single episode, unspecified Status : Acute - Plan Still on dopamine, continue to wean, give fluids. Continue post GA and PCI care including Brilinta and baby ASA. Continue to monitor in the ICU. Increase activity. D/w pt and family. 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 insulin use: without senior living use Diabetes mellitus complication status: with unspecified complications Qualified Code(s): E11.8 - Type 2 diabetes mellitus with unspecified complications (3) Hypertension Qualifiers: Hypertension type: unspecified Qualified Code(s): I10 - Essential (primary) hypertension (7) DVT (deep venous thrombosis) Qualifiers: DVT location: lower extremity Affected thrombotic vein of extremity: unspecified vein of extremity Chronicity: chronic Laterality: right Qualified Code(s): 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
[2018-07-21] MEDS: Sod Chloride 0.9% Inj 1,000 ML IV.SIG SCH (21:00)
[2018-07-22] MEDS: Chlorhexidine Gluconate 2% 1 Pack (2 Cloths) TOPICAL SCH (04:17)
[2018-07-22 05:02] LABS: Baso % (Auto) 0.4 % (0.0-2.0); Eos # (Auto) 0.4 th/mm3 (0.0-0.4); Eos % (Auto) 5.2 % (0.0-4.0); Hematocrit 29.8 % (39.0-51.0); Hemoglobin 10.3 gm/dL (13.0-17.0); Lymph # (Auto) 1.2 th/mm3 (1.0-4.8); Lymph % (Auto) 16.8 % (9.0-44.0); Mean Corpuscular HGB Conc 34.5 % (32.0-36.0); Mean Corpuscular Hemoglobin 30.2 pg (27.0-34.0); Mean Corpuscular Volume 87.3 fL (80.0-100.0); Mean Platelet Volume 8.1 fL (7.0-11.0); Mono # (Auto) 0.7 th/mm3 (0.0-0.9); Mono % (Auto) 9.9 % (0.0-8.0); Neut # (Auto) 4.8 th/mm3 (1.8-7.7); Neut % (Auto) 67.7 % (16.0-70.0); Platelet Count 138 th/mm3 (150-450); Red Blood Count 3.41 mil/mm3 (4.50-5.90); Red Cell Distribution Width 14.5 % (11.6-17.2); White Blood Count 7.1 th/mm3 (4.0-11.0)
[2018-07-22 05:08] LABS: INR 1.7 Ratio; Prothrombin Time 17.4 sec (9.8-11.6)
[2018-07-22 05:14] LABS: Calcium 7.6 mg/dL (8.5-10.1)
[2018-07-22] MEDS: Insulin NovoLOG Aspart Correctional Sugar Inj SQ SCH ×4 (05:53→23:43)
[2018-07-22] MEDS: Sod Chloride 0.9% Inj 1,000 ML IV.SIG SCH (06:23)
[2018-07-22] MEDS: Pantoprazole Inj 40 MG Vial IV.PUSH SCH (08:16)
[2018-07-22] MEDS: Senna/Docusate Sodium 8.6/50 MG Tablet PO SCH ×2 (08:18→20:48)
[2018-07-22] MEDS: buPROPion 75 MG Tablet PO SCH ×3 (08:18→17:40)
--- NOTE | 2018-07-22 09:21 | P.PNCC ---
Subjective Subjective Remarks/Hospital Course: This is a 72-year-old male. Date of admission 07/19/2018. Patient was taken straight to the [facility] and appears in room 525 on a dopamine drip at 7.5 mcg/kg/min. Patient was originally counseled the hospitalist but they consulted us for management. In reviewing the records, patient with history of depression on Adderall, hypertension, diabetes and ongoing tobaccoism. He is also on chronic warfarin for history of right lower extremity deep venous thrombosis. Today he presents to [facility] with a 36-hour history of ongoing chest pain, describes as squeezing his chest without radiation. States is 10 out of 10. And substernal in nature. EKG revealed ST elevation in inferior leads. Troponin greater than 40. Also no creatinine was elevated 1.6. INR is 2.4. During the cardiac catheterization , patient was noted to have's ejection fraction 30%. 0% stenosis left main. 70 % mid LAD. 6% diagonal. 40% OM. 100% RCA. Patient had bare-metal stents x3 placed in the RCA by 30 mm, 2.75 x 26 mm in 2.5 x 26 mm. Patient was recently admitted to the hospital service but patient remains on a dopamine drip at 7.5 mg/kg/min. Patient currently denies chest pain is asking for his psychiatric medications and water. Denies chest pain currently. 07/20: Afebrile. Remains on dopamine drip at 8 mcg/kg/min. Unable to wean. Will need central line. Appears stable. Intermittently short of breath. Denies chest pain currently. 07/21: Afebrile. Remains on dopamine drip at 8 mcg/kg/min. Unable to wean. Right internal jugular vein central line placed yesterday. Intermittently short of breath. Denies chest pain currently. Tolerating diet. SUBJECTIVE: 07/22: Afebrile. Down to 4 mcg/kg/min of dopamine. Will attempt to wean to maintain a map around 55. Received 1 L normal saline with a total of 4 h 250 cc boluses overnight. Objective Vital Signs / I&O: Vital Signs 07/21/18 10:00 07/21/18 12:00 07/21/18 12:06 Temperature 98 F Pulse Rate 77 86 74 Respiratory Rate 25 H 20 Blood Pressure 75/49 L Pulse Oximetry 97 99 07/21/18 14:00 07/21/18 15:25 07/21/18 16:00 Temperature 98.2 F Pulse Rate 76 68 71 Respiratory Rate 16 21 Blood Pressure 110/58 L Pulse Oximetry 97 07/21/18 16:15 07/21/18 16:30 07/21/18 16:45 Temperature Pulse Rate 72 69 76 Respiratory Rate 23 24 22 Blood Pressure 108/58 L 130/58 L 119/59 L Pulse Oximetry 97 98 99 07/21/18 17:00 07/21/18 17:15 07/21/18 17:36 Temperature Pulse Rate 77 73 80 Respiratory Rate 22 24 26 H Blood Pressure 117/64 122/68 101/55 L Pulse Oximetry 97 98 97 07/21/18 17:45 07/21/18 18:00 07/21/18 18:15 Temperature Pulse Rate 82 75 81 Respiratory Rate 27 H 25 H 28 H Blood Pressure 101/53 L 94/55 L 93/63 L Pulse Oximetry 97 97 98 07/21/18 18:30 07/21/18 18:45 07/21/18 19:00 Temperature Pulse Rate 78 81 75 Respiratory Rate 26 H 27 H 29 H Blood Pressure 102/59 L 114/67 94/56 L Pulse Oximetry 99 98 97 07/21/18 19:15 07/21/18 19:30 07/21/18 19:45 Temperature Pulse Rate 74 75 72 Respiratory Rate 23 25 H 23 Blood Pressure 93/54 L 101/59 L 94/57 L Pulse Oximetry 98 97 98 07/21/18 20:00 07/21/18 20:15 07/21/18 20:18 Temperature 99.6 F Pulse Rate 82 80 Respiratory Rate 27 H 31 H Blood Pressure 135/72 122/64 Pulse Oximetry 97 99 98 07/21/18 20:20 07/21/18 20:30 07/21/18 20:45 Temperature Pulse Rate 81 78 81 Respiratory Rate 16 26 H 24 Blood Pressure 107/59 L 103/57 L Pulse Oximetry 98 98 07/21/18 21:00 07/21/18 21:15 07/21/18 21:27 Temperature Pulse Rate 76 75 77 Respiratory Rate 24 23 22 Blood Pressure 91/52 L 104/58 L 101/59 L Pulse Oximetry 97 97 98 07/21/18 21:30 07/21/18 21:46 12/13/18 22:00 Temperature Pulse Rate 79 90 77 Respiratory Rate 23 28 H 23 Blood Pressure 102/59 L 98/59 L 104/63 Pulse Oximetry 98 99 97 07/21/18 22:15 07/21/18 22:30 07/21/18 22:45 Temperature Pulse Rate 78 76 86 Respiratory Rate 22 23 24 Blood Pressure 100/60 98/58 L 102/60 Pulse Oximetry 97 98 99 07/21/18 23:00 07/21/18 23:15 07/21/18 23:20 Temperature Pulse Rate 79 77 75 Respiratory Rate 26 H 24 18 Blood Pressure 101/59 L 103/62 Pulse Oximetry 96 98 07/21/18 23:30 07/21/18 23:45 07/22/18 00:00 Temperature 99.2 F Pulse Rate 79 80 80 Respiratory Rate 24 23 30 H Blood Pressure 125/60 106/57 L 96/53 L Pulse Oximetry 98 98 96 07/22/18 00:15 07/22/18 00:30 07/22/18 00:45 Temperature Pulse Rate 87 76 78 Respiratory Rate 26 H 25 H 25 H Blood Pressure 108/59 L 109/60 94/52 L Pulse Oximetry 98 95 94 L 07/22/18 01:00 07/22/18 01:15 07/22/18 01:30 Temperature Pulse Rate 77 75 73 Respiratory Rate 22 23 21 Blood Pressure 95/51 L 98/57 L 97/58 L Pulse Oximetry 95 95 96 07/22/18 01:45 07/22/18 02:00 07/22/18 02:15 Temperature Pulse Rate 72 75 74 Respiratory Rate 23 23 22 Blood Pressure 99/59 L 105/62 112/63 Pulse Oximetry 95 96 96 07/22/18 02:30 07/22/18 02:45 07/22/18 03:00 Temperature Pulse Rate 72 79 76 Respiratory Rate 25 H 23 21 Blood Pressure 106/62 110/63 102/58 L Pulse Oximetry 96 97 99 07/22/18 03:15 07/22/18 03:30 07/22/18 03:45 Temperature Pulse Rate 73 68 74 Respiratory Rate 24 21 23 Blood Pressure 101/58 L 108/59 L 96/55 L Pulse Oximetry 97 96 97 07/22/18 04:00 07/22/18 04:15 07/22/18 04:30 Temperature 99.3 F Pulse Rate 69 69 69 Respiratory Rate 21 20 25 H Blood Pressure 108/60 116/66 120/62 Pulse Oximetry 96 97 96 07/22/18 04:45 07/22/18 05:00 07/22/18 05:01 Temperature Pulse Rate 67 76 79 Respiratory Rate 21 26 H 27 H Blood Pressure 112/62 102/54 L Pulse Oximetry 95 98 96 07/22/18 05:15 07/22/18 05:30 07/22/18 05:45 Temperature Pulse Rate 69 69 70 Respiratory Rate 21 23 21 Blood Pressure 112/56 L 109/56 L 115/56 L Pulse Oximetry 96 97 96 07/22/18 06:00 Temperature Pulse Rate 71 Respiratory Rate Blood Pressure Pulse Oximetry Intake & Output 07/21/18 07/22/18 07/22/18 18:59 06:59 18:59 Intake Total 350 / 350 1600 / 1600 Output Total 900 / 900 1225 / 1225 Balance -550 / -550 375 / 375 Weight 75.6 kg Intake: IV 1000 / 1000 NS Inj 1,000 ML @ 2000 mls/hr 1000 / 1000 IV.SIG Q30M [facility] Rx#:[id number] Oral 350 / 350 600 / 600 Output: Urine 900 / 900 1225 / 1225 Other: Date of Last Bowel Movement 07/19/18 07/19/18 # Bowel Movements 0 0 Result Diagrams: 07/22/18 03:40 07/22/18 03:40 Imaging: Venous Doppler Study 07/19/18 00:00 CONCLUSION: 1. The study is negative for bilateral lower extremity deep venous thrombosis. Chest X-Ray 07/19/18 10:54 CONCLUSION: No evidence of significant congestion or acute airspace disease. Abdomen/Bladder Ultrasound 07/20/18 08:14 CONCLUSION: 1. Right renal cyst. 2. Increased echogenicity with thinning of the cortex bilaterally suggesting chronic renal disease without obstruction. Chest X-Ray 07/20/18 10:08 CONCLUSION: Line in good position Increasing bibasilar consolidative changes Objective Remarks: GENERAL: This is a 72-year-old male currently resting in bed in no acute distress SKIN: Warm and dry. No rash HEAD: Atraumatic. Normocephalic. EYES: Pupils equal and round. No scleral icterus. No injection or drainage. ENT: No nasal bleeding or discharge. Mucous membranes pink and moist. NECK: Trachea midline. No JVD. Right IJ is clean dry and intact CARDIOVASCULAR: Regular rate and rhythm. S1, S2. No S4. RESPIRATORY: No accessory muscle use. Clear to auscultation. Breath sounds equal bilaterally. GASTROINTESTINAL: Abdomen soft, non-tender, nondistended. Hypoactive bowel sounds appreciated. MUSCULOSKELETAL: Extremities without clubbing, cyanosis, or edema. No obvious deformities. Right inguinal region without hematoma NEUROLOGICAL: Awake and alert. No obvious cranial nerve deficits. Motor grossly within normal limits. Five out of 5 muscle strength in the arms and legs. Normal speech. PSYCHIATRIC: Appropriate mood and affect; insight and judgment normal. Assessment and Plan - Problem List (1) Depression Code(s): F32.9 - Major depressive disorder, single episode, unspecified Status : Acute (2) DVT (deep venous thrombosis) Code(s): I82.409 - Acute embolism and thrombosis of unspecified deep veins of unspecified lower extremity Status: Acute (3) Acute kidney injury Code(s): N17.9 - Acute kidney failure, unspecified Status: Acute (4) Coronary artery disease Code(s): I25.10 - Atherosclerotic heart disease of [place] coronary artery without angina pectoris Status: Acute (5) Acute inferior myocardial infarction Code(s): I21.19 - ST elevation (STEMI) myocardial infarction involving other coronary artery of inferior wall Status: Acute (6) Essential hypertension Code(s): I10 - Essential (primary) hypertension Status: Acute (7) Diabetes mellitus Code(s): E11.9 - Type 2 diabetes mellitus without complications Status: Acute (8) Anticoagulated Code(s): Z79.01 - intermediate accountant (current) use of anticoagulants Status: Acute - Assessment and Plan Plan: Neuro/Psych: Major depressive disorder SOS Continue bupropion 150 mg 3 times daily, escitalopram 20 mg daily and pramipexole 1 mg daily Cardiology request holding dextroamphetamine/amphetamine for now. Acetaminophen 650 p.o. every 6 hours as needed fever Hydrocodone/acetaminophen 5/325 1 tablet every 4 hours as needed pain 1 through 5 Hydromorphone 1 mg IV every 4 hours as needed pain 6 through 10 CV: Acute inferior VT History of essential hypertension Hyperlipidemia with elevated LDL Coronary artery disease Status post cardiac catheterization by Dr. Hayes Ejection fraction 30% per cardiac catheterization report Left main 0%. LAD 70%. Diagonal 60%. OM 40% mid RCA 100 percent Status post bare-metal stent to RCA x3 Antiplatelet management per cardiology. Continue on ticagrelor 90 mg twice daily for dual action platelet therap with aspirin 81 mg daily okay with cardiology Atorvastatin 10 milligrams daily for dyslipidemia change to pravastatin 40 mg daily No beta-paulo and JUDY inhibitor while hypotensive Home medications verapamil 120 mg daily. This is currently on hold Continue tirofiban drip 6 AM on 07/20 On dopamine drip at 4 microgram/kg/minute to maintain mean artery pressure critical 65. Wean off as tolerated. Holding home medication of losartan 100 mg daily, verapamil 120 mg daily and triamterene/hydrochlorothiazide 37.5/25 1 tablet daily while on vasopressors Resp: Ongoing tobaccoism Nasal cannula to maintain saturations greater than equal to 92% Incentive spirometry while awake Albuterol/ipratropium aerosols every 4 hours with albuterol aerosols every 2 hours as needed dyspnea Tobacco cessation will be encouraged with self evaluation booklet to be provided GI: Elevated AST -likely cardiac Hypoalbuminemia Cardiac/diabetic diet to be initiated Pantoprazole for GI prophylaxis Docusate sodium/senna 1 tablet twice daily for bowel regimen : Straight catheterization as needed Endo: Diabetes mellitus Holding metformin 1000 mg twice daily in light of acute kidney injury/recent IV contrast load Sliding scale insulin aspart insulin with Accu-Cheks every 6 hours to maintain euglycemia Hemoglobin A1c was 5.7 TSH is 0.733 We will check cortisol level today. Renal: Acute kidney injury downtrending currently 1.4 Unknown baseline Monitor urine output Accurate I's and O's Recheck BMP in a.m. Check urine eosinophils, sodium, creatinine -Renal ultrasound revealed no hydronephrosis. Cortical thinning indicative of medical renal disease Heme: History of right lower extremity DVT Chronic warfarin use Normocytic anemia INR is 1.7 recent warfarin 2.5 mg daily. Pharmacy consultation for management ID: Monitor for signs and symptomatology infection FEN: Replace electrolytes as clinically indicated MSK: Out of bed/PT evaluate and treat when indicated Access -Right IJ CVL day 3 placed 07/20 Prophylaxis -GI -pantoprazole -DVT -SCD/warfarin anticoagulation Level 3 follow-up (1) Depression Qualifiers: Depression Type: unspecified Qualified Code(s): F32.9 - Major depressive disorder, single episode, unspecified (2) DVT (deep venous thrombosis) Qualifiers: DVT location: lower extremity Affected thrombotic vein of extremity: unspecified vein of extremity Chronicity: chronic Laterality: right Qualified Code(s): I82.501 - Chronic embolism and thrombosis of unspecified deep veins of right lower extremity (4) Coronary artery disease Qualifiers: Coronary Disease-Associated Artery/Lesion type: [place] artery [place] vs. transplanted heart: [place] heart Associated angina: angina presence unspecified Qualified Code(s): I25.10 - Atherosclerotic heart disease of [place] coronary artery without angina pectoris (7) Diabetes mellitus Qualifiers: Diabetes mellitus type: type 2 Diabetes mellitus jail insulin use: without terminal block assembler use Diabetes mellitus complication status: with unspecified complications Qualified Code(s): E11.8 - Type 2 diabetes mellitus with unspecified complications
[2018-07-22] MEDS ORDERED: Calcium Chloride Inj 1 GM in Dextrose 5% in Water Inj 100 ML IV.SIG ONE ×2 (11:00)
--- NOTE | 2018-07-22 15:04 | P.PNCA ---
Subjective Interval history: Patient denies any CP, pressure, palpitations, dizziness or edema. Patient currently complains of mild SOB with any activity. Medications and Allergies Allergies Allergy/AdvReac Type Severity Reaction Status Date / Time No Known Allergies Allergy Verified 07/19/18 10:54 Home Medications Medication Instructions Recorded Confirmed Type metformin 1,000 mg PO BID 07/19/18 07/19/18 History verapamil 120 mg PO DAILY 07/19/18 07/19/18 History warfarin [Coumadin] 2.5 mg PO DAILY 07/19/18 07/19/18 History Active Medications: Active Medications Acetaminophen (Tylenol) 650 mg PO Q6H PRN PRN Reason: Fever >101f Hydrocodone Bitart/Acetaminophen ([place] 5/325) 1 tab PO Q4H PRN PRN Reason: PAIN SCALE 1 TO 5 Al Hydroxide/Mg Hydroxide (Milk Of Magnsanthosh Liq) 30 ml PO Q12H PRN PRN Reason: Mild Constipation Albuterol (Albuterol Neb (Prn)) 2.5 mg NEB Q2HR NEB PRN PRN Reason: SHORTNESS OF BREATH/WHEEZING Albuterol (Duoneb Neb ([facility])) 1 ampul NEB Q4HR NEB [facility] Last Admin: 07/22/18 14:25 Dose: 1 ampul Aspirin (Aspirin Chew) 81 mg PO DAILY [facility] Last Admin: 07/22/18 08:17 Dose: 81 mg Bisacodyl (Dulcolax Supp) 10 mg RECTAL DAILY PRN PRN Reason: SEVERE CONSITIPATION Bupropion HCl (Wellbutrin) 150 mg PO TID [facility] Last Admin: 07/22/18 12:45 Dose: 150 mg Chlorhexidine Gluconate (Chlorhexidine 2% Cloth) 3 pack TOPICAL DAILY@0400 [facility] Stop: 07/25/18 03:59 Last Admin: 07/22/18 04:17 Dose: Not Given Chlorhexidine Gluconate (Chlorhexidine 2% Cloth) 3 pack TOPICAL DAILY@0400 PRN PRN Reason: Extra cloth needed Stop: 07/25/18 03:59 Dextrose (D50w Vial) 50 ml IV.PUSH UNSCH PRN PRN Reason: PER HYPOGLYCEMIA PROTOCOL Escitalopram Oxalate (Lexapro) 20 mg PO DAILY [facility] Last Admin: 07/22/18 08:17 Dose: 20 mg Glucagon (Glucagon Inj) 1 mg OTHER PRN PRN PRN Reason: for Hypoglycemia Protocol Hydromorphone HCl (Dilaudid Pf Inj) 1 mg IV.PUSH Q4H PRN PRN Reason: PAIN SCALE 6 TO 10 Dopamine HCl/Dextrose (Dopamine 800 Mg/500 Ml Premix) 800 mg in 500 mls @ 13.688 mls/hr IV.CONT TITRATE PRN; Protocol PRN Reason: Per Protocol Last Titration: 07/22/18 10:36 Dose: 0 mcg/kg/min, 0 mls/hr Magnesium Sulfate 4 gm/ Sodium (Chloride) 100 mls @ 50 mls/hr IV.SIG UNSCH PRN PRN Reason: For Magnesium 0.9 - 1.1 mg/dL Magnesium Sulfate 2 gm/ Sodium (Chloride) 100 mls @ 50 mls/hr IV.SIG UNSCH PRN PRN Reason: For Magnesium 1.2 - 1.6 mg/dL Potassium Chloride (Kcl 40 Meq Premix Inj) 40 meq in 100 mls @ 25 mls/hr IV.SIG Q2H PRN PRN Reason: For Potassium 2.8 - 3.2 mEq/L Potassium Chloride (Kcl 20 Meq Premix Inj) 20 meq in 100 mls @ 50 mls/hr IV.SIG Q2H PRN PRN Reason: For Potassium 3.3 - 3.5 mEq/L Potassium Chloride (Kcl 40 Meq Premix Inj) 40 meq in 100 mls @ 25 mls/hr IV.SIG UNSCH PRN PRN Reason: For Potassium 3.3 - 3.5 mEq/L Potassium Chloride (Kcl 20 Meq Premix Inj) 20 meq in 100 mls @ 50 mls/hr IV.SIG Q2H PRN PRN Reason: For Potassium 2.8 - 3.2 mEq/L Potassium Phosphate 30 mmol/ (Sodium Chloride) 260 mls @ 42 mls/hr IV.SIG UNSCH PRN PRN Reason: SEE LABEL COMMENTS Sodium Phosphate 30 mmol/ (Sodium Chloride) 260 mls @ 42 mls/hr IV.SIG UNSCH PRN PRN Reason: For Phosphorus < 2.5 mg/dL Insulin Aspart (Novolog Insulin [place] Sugar Inj) 0 unit SQ Q6HR [facility]; Protocol Last Admin: 07/22/18 12:45 Dose: Not Given Lactulose (Lactulose Liq) 30 ml PO DAILY PRN PRN Reason: SEVERE CONSITIPATION Magnesium Oxide (Mag-Ox) 800 mg PO UNSCH PRN PRN Reason: For Magnesium 1.2 - 1.6 mg/dL Pantoprazole Sodium (Protonix) 40 mg PO DAILY [facility] Pharmacy Profile Note (Coumadin Consult Pharmacy) 1 each OTHER UNSCH PRN PRN Reason: PHARMACY DOCUMENTATION Potassium Bicarb/Potassium Chloride (K-Lyte Cl Eff) 50 meq PO UNSCH PRN PRN Reason: For Potassium 3.3 - 3.5 mEq/L Potassium Phosphate (K-Phos Original) 2,000 mg PO Q4H PRN PRN Reason: Phosphorus Less Than 2.5 mg/dL Potassium Phosphate (K-Phos Original) 2,000 mg PO UNSCH PRN PRN Reason: SEE LABEL COMMENTS Pramipexole Dihydrochloride (Mirapex) 1 mg PO DAILY [facility] Last Admin: 07/22/18 08:17 Dose: 1 mg Pravastatin Sodium (Pravachol) 40 mg PO HS [facility] Last Admin: 07/21/18 21:01 Dose: 40 mg Senna/Docusate Sodium ([place]-Colace) 1 tab PO BID [facility] Last Admin: 07/22/18 08:18 Dose: Not Given Sennosides (Senokot) 17.2 mg PO Q12H PRN PRN Reason: Moderate Constipation Sodium Chloride (Ns Flush) 2 ml IV.FLUSH BID [facility] Last Admin: 07/22/18 08:18 Dose: 2 ml Sodium Chloride (Ns Flush) 2 ml IV.FLUSH PRN PRN PRN Reason: FLUSH AFTER USING IV ACCESS Sodium Chloride (Ns Flush) 0 ml IV.FLUSH DAILY [facility] Last Admin: 07/22/18 08:18 Dose: 6 ml Throat Lozenges (Chloraseptic [place]) 2 spray OROPHARYNG Q2H PRN PRN Reason: SORE THROAT Last Admin: 07/20/18 22:05 Dose: 2 spray Ticagrelor (Brilinta) 90 mg PO Q12H [facility] Last Admin: 07/22/18 10:36 Dose: 90 mg Warfarin Sodium (Coumadin) 2.5 mg PO DAILY@1600 [facility] Last Admin: 07/21/18 16:30 Dose: 2.5 mg Physical Exam Vital signs: Vital Signs 07/21/18 15:25 07/21/18 16:00 07/21/18 16:15 Temperature 98.2 F Pulse Rate 68 71 72 Respiratory Rate 16 21 23 Blood Pressure 110/58 L 108/58 L Pulse Oximetry 97 97 07/21/18 16:30 07/21/18 16:45 07/21/18 17:00 Temperature Pulse Rate 69 76 77 Respiratory Rate 24 22 22 Blood Pressure 130/58 L 119/59 L 117/64 Pulse Oximetry 98 99 97 07/21/18 17:15 07/21/18 17:36 07/21/18 17:45 Temperature Pulse Rate 73 80 82 Respiratory Rate 24 26 H 27 H Blood Pressure 122/68 101/55 L 101/53 L Pulse Oximetry 98 97 97 07/21/18 18:00 07/21/18 18:15 07/21/18 18:30 Temperature Pulse Rate 75 81 78 Respiratory Rate 25 H 28 H 26 H Blood Pressure 94/55 L 93/63 L 102/59 L Pulse Oximetry 97 98 99 07/21/18 18:45 07/21/18 19:00 07/21/18 19:15 Temperature Pulse Rate 81 75 74 Respiratory Rate 27 H 29 H 23 Blood Pressure 114/67 94/56 L 93/54 L Pulse Oximetry 98 97 98 07/21/18 19:30 07/21/18 19:45 07/21/18 20:00 Temperature 99.6 F Pulse Rate 75 72 82 Respiratory Rate 25 H 23 27 H Blood Pressure 101/59 L 94/57 L 135/72 Pulse Oximetry 97 98 97 07/21/18 20:15 07/21/18 20:18 07/21/18 20:20 Temperature Pulse Rate 80 81 Respiratory Rate 31 H 16 Blood Pressure 122/64 Pulse Oximetry 99 98 07/21/18 20:30 07/21/18 20:45 07/21/18 21:00 Temperature Pulse Rate 78 81 76 Respiratory Rate 26 H 24 24 Blood Pressure 107/59 L 103/57 L 91/52 L Pulse Oximetry 98 98 97 07/21/18 21:15 07/21/18 21:27 07/21/18 21:30 Temperature Pulse Rate 75 77 79 Respiratory Rate 23 22 23 Blood Pressure 104/58 L 101/59 L 102/59 L Pulse Oximetry 97 98 98 07/21/18 21:46 07/21/18 22:00 07/21/18 22:15 Temperature Pulse Rate 90 77 78 Respiratory Rate 28 H 23 22 Blood Pressure 98/59 L 104/63 100/60 Pulse Oximetry 99 97 97 07/21/18 22:30 07/21/18 22:45 07/21/18 23:00 Temperature Pulse Rate 76 86 79 Respiratory Rate 23 24 26 H Blood Pressure 98/58 L 102/60 101/59 L Pulse Oximetry 98 99 96 07/21/18 23:15 07/21/18 23:20 07/21/18 23:30 Temperature Pulse Rate 77 75 79 Respiratory Rate 24 18 24 Blood Pressure 103/62 125/60 Pulse Oximetry 98 98 07/21/18 23:45 07/22/18 00:00 07/22/18 00:15 Temperature 99.2 F Pulse Rate 80 80 87 Respiratory Rate 23 30 H 26 H Blood Pressure 106/57 L 96/53 L 108/59 L Pulse Oximetry 98 96 98 07/22/18 00:30 07/22/18 00:45 07/22/18 01:00 Temperature Pulse Rate 76 78 77 Respiratory Rate 25 H 25 H 22 Blood Pressure 109/60 94/52 L 95/51 L Pulse Oximetry 95 94 L 95 07/22/18 01:15 07/22/18 01:30 07/22/18 01:45 Temperature Pulse Rate 75 73 72 Respiratory Rate 23 21 23 Blood Pressure 98/57 L 97/58 L 99/59 L Pulse Oximetry 95 96 95 07/22/18 02:00 07/22/18 02:15 07/22/18 02:30 Temperature Pulse Rate 75 74 72 Respiratory Rate 23 22 25 H Blood Pressure 105/62 112/63 106/62 Pulse Oximetry 96 96 96 07/22/18 02:45 07/22/18 03:00 07/22/18 03:15 Temperature Pulse Rate 79 76 73 Respiratory Rate 23 21 24 Blood Pressure 110/63 102/58 L 101/58 L Pulse Oximetry 97 99 97 07/22/18 03:30 07/22/18 03:45 07/22/18 04:00 Temperature 99.3 F Pulse Rate 68 74 69 Respiratory Rate 21 23 21 Blood Pressure 108/59 L 96/55 L 108/60 Pulse Oximetry 96 97 96 07/22/18 04:15 07/22/18 04:30 07/22/18 04:45 Temperature Pulse Rate 69 69 67 Respiratory Rate 20 25 H 21 Blood Pressure 116/66 120/62 112/62 Pulse Oximetry 97 96 95 07/22/18 05:00 07/22/18 05:01 07/22/18 05:15 Temperature Pulse Rate 76 79 69 Respiratory Rate 26 H 27 H 21 Blood Pressure 102/54 L 112/56 L Pulse Oximetry 98 96 96 07/22/18 05:30 07/22/18 05:45 07/22/18 06:00 Temperature Pulse Rate 69 70 71 Respiratory Rate 23 21 Blood Pressure 109/56 L 115/56 L Pulse Oximetry 97 96 07/22/18 07:00 07/22/18 08:00 07/22/18 14:26 Temperature Pulse Rate 69 72 Respiratory Rate 18 18 Blood Pressure Pulse Oximetry 96 Intake & Output 07/21/18 07/22/18 07/22/18 18:59 06:59 18:59 Intake Total 350 / 350 1600 / 1600 Output Total 900 / 900 1225 / 1225 Balance -550 / -550 375 / 375 Weight 75.6 kg Intake: IV 1000 / 1000 NS Inj 1,000 ML @ 2000 mls/hr 1000 / 1000 IV.SIG Q30M [facility] Rx#:[id number] Oral 350 / 350 600 / 600 Output: Urine 900 / 900 1225 / 1225 Other: Date of Last Bowel Movement 07/19/18 07/19/18 # Bowel Movements 0 0 - Constitutional no acute distress - Routine HEENT Exam Head: Present: normocephalic Eye: Present: PERRL ENT: Present: mucous membranes moist - Routine Neck Exam Present: full ROM - Routine Respiratory Exam Present: CTA bilaterally - Routine Cardiovascular Exam Present: S1, S2. Absent: murmur, gallop, rubs - Routine Abdominal Exam Present: normoactive bowel sounds - Routine Extremities Exam Present: full ROM, pulses intact, normal capillary refill. Absent: cyanosis, clubbing, edema Comments: right groin site, D&I without signs of bleeding or hematoma. - Routine Skin Exam Present: intact - Routine Neurological Exam Present: oriented X3 - Detailed Neurological Exam: Coma Scale Eye Opening: Spontaneous Verbal Response: Oriented Motor Response: Obey commands [place] Coma Scale Total: 15 - Routine Psychiatric Exam Present: normal affect Results 07/22/18 03:40 07/22/18 03:40 Coagulation 07/21/18 07/22/18 Range/Units 05:30 03:40 PT 25.9 H D 17.4 H (9.8-11.6) sec APTT 44.3 H (23.4-31.7) sec CBC 07/22/18 Range/Units 03:40 WBC 7.1 (4.0-11.0) th/mm3 RBC 3.41 L (4.50-5.90) mil/mm3 Hgb 10.3 L D (13.0-17.0) gm/dL Hct 29.8 L (39.0-51.0) % Plt Count 138 L D (150-450) th/mm3 Neut # (Auto) 4.8 (1.8-7.7) th/mm3 Lymph # (Auto) 1.2 (1.0-4.8) th/mm3 [place] # (Auto) 0.7 (0.0-0.9) th/mm3 Eos # (Auto) 0.4 (0.0-0.4) th/mm3 Baso # (Auto) 0.0 (0.0-0.2) th/mm3 Comprehensive Metabolic Panel 07/21/18 07/22/18 Range/Units 05:30 03:40 Sodium 138 139 (136-145) meq/L Potassium 4.0 4.0 (3.5-5.1) meq/L Chloride 107 109 H (98-107) meq/L Carbon Dioxide 22.9 24.0 (21.0-32.0) meq/L BUN 26 H 25 H (7-18) mg/dL Creatinine 1.74 H 1.38 H (0.60-1.30) mg/dL Calcium 8.1 L 7.6 L (8.5-10.1) mg/dL Intake and Output 07/21/18 07/22/18 07/22/18 22:59 06:59 14:59 Intake Total 350 / 350 1600 / 1600 Output Total 1225 / 1225 Balance 350 / 350 375 / 375 Intake: IV 1000 / 1000 NS Inj 1,000 ML @ 2000 mls/hr 1000 / 1000 IV.SIG Q30M [facility] Rx#:[id number] Oral 350 / 350 600 / 600 Output: Urine 1225 / 1225 Other: Date of Last Bowel Movement 07/19/18 07/19/18 # Bowel Movements 0 0 Weight 75.6 kg Assessment and Plan - Assessment (1) ST elevation myocardial infarction (STEMI) Code(s): I21.3 - ST elevation (STEMI) myocardial infarction of unspecified site Status: Acute (2) Diabetes mellitus Code(s): E11.9 - Type 2 diabetes mellitus without complications Status: Acute (3) Hypertension Code(s): I10 - Essential (primary) hypertension Status: Acute (4) Anticoagulated Code(s): Z79.01 - FDC (current) use of anticoagulants Status: Acute (5) Acute inferior myocardial infarction Code(s): I21.19 - ST elevation (STEMI) myocardial infarction involving other coronary artery of inferior wall Status: Acute (6) Acute kidney injury Code(s): N17.9 - Acute kidney failure, unspecified Status: Acute (7) DVT (deep venous thrombosis) Code(s): I82.409 - Acute embolism and thrombosis of unspecified deep veins of unspecified lower extremity Status: Acute (8) Depression Code(s): F32.9 - Major depressive disorder, single episode, unspecified Status : Acute - Plan Continue with IV hydration and ICU care. Dopamine is currently off, VSS. No new cardiac issues noted, continue with current cardiac treatment plan. We will continue anticoagulation with Brilinta and baby ASA. Discussed with patient the importance of taking these medications. We will continue post [place] care. Continue to increase activity as patient tolerates. We will continue to monitor patient during hospitalization. The patient was seen and evaluated by Dr. Hayes who participated in care, management and decision making. - Attending Attestation Patient seen and examined. I reviewed and agree with the evaluation and plan as presented. Dopamine weaned off. Continue Brilinta and baby ASA. D/w pt and son. (1) ST elevation myocardial infarction (STEMI) Qualifiers: Involved coronary artery: other coronary artery Qualified Code(s): I21.29 - ST elevation (STEMI) myocardial infarction involving other sites (2) Diabetes mellitus Qualifiers: Diabetes mellitus type: type 2 Diabetes mellitus detention insulin use: without intermission coordinator use Diabetes mellitus complication status: with unspecified complications Qualified Code(s): E11.8 - Type 2 diabetes mellitus with unspecified complications (3) Hypertension Qualifiers: Hypertension type: unspecified Qualified Code(s): I10 - Essential (primary) hypertension (7) DVT (deep venous thrombosis) Qualifiers: DVT location: lower extremity Affected thrombotic vein of extremity: unspecified vein of extremity Chronicity: chronic Laterality: right Qualified Code(s): 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
[2018-07-23] MEDS: Chlorhexidine Gluconate 2% 1 Pack (2 Cloths) TOPICAL SCH (03:37)
[2018-07-23 06:07] LABS: Baso % (Auto) 0.4 % (0.0-2.0); Eos # (Auto) 0.4 th/mm3 (0.0-0.4); Eos % (Auto) 6.3 % (0.0-4.0); Hematocrit 28.6 % (39.0-51.0); Hemoglobin 9.9 gm/dL (13.0-17.0); Lymph # (Auto) 1.4 th/mm3 (1.0-4.8); Lymph % (Auto) 20.7 % (9.0-44.0); Mean Corpuscular HGB Conc 34.6 % (32.0-36.0); Mean Corpuscular Hemoglobin 30.3 pg (27.0-34.0); Mean Corpuscular Volume 87.4 fL (80.0-100.0); Mean Platelet Volume 8.4 fL (7.0-11.0); Mono # (Auto) 0.6 th/mm3 (0.0-0.9); Mono % (Auto) 9.2 % (0.0-8.0); Neut # (Auto) 4.2 th/mm3 (1.8-7.7); Neut % (Auto) 63.4 % (16.0-70.0); Platelet Count 144 th/mm3 (150-450); Red Blood Count 3.27 mil/mm3 (4.50-5.90); Red Cell Distribution Width 14.3 % (11.6-17.2); White Blood Count 6.6 th/mm3 (4.0-11.0)
[2018-07-23 06:31] LABS: Carbon Dioxide 23.8 meq/L (21.0-32.0); Magnesium 1.9 mg/dL (1.5-2.5); Potassium 3.9 meq/L (3.5-5.1)
[2018-07-23 06:32] LABS: Phosphorus 2.6 mg/dL (2.5-4.9)
[2018-07-23 06:38] LABS: INR 1.9 Ratio
[2018-07-23] MEDS: Insulin NovoLOG Aspart Correctional Sugar Inj SQ SCH ×4 (07:27→23:57)
--- NOTE | 2018-07-23 07:58 | P.PNCC ---
Subjective Subjective Remarks/Hospital Course: This is a 72-year-old male. Date of admission 07/19/2018. Patient was taken straight to the [facility] and appears in room 525 on a dopamine drip at 7.5 mcg/kg/min. Patient was originally counseled the hospitalist but they consulted us for management. In reviewing the records, patient with history of depression on Adderall, hypertension, diabetes and ongoing tobaccoism. He is also on chronic warfarin for history of right lower extremity deep venous thrombosis. Today he presents to [facility] with a 36-hour history of ongoing chest pain, describes as squeezing his chest without radiation. States is 10 out of 10. And substernal in nature. EKG revealed ST elevation in inferior leads. Troponin greater than 40. Also no creatinine was elevated 1.6. INR is 2.4. During the cardiac catheterization , patient was noted to have's ejection fraction 30%. 0% stenosis left main. 70 % mid LAD. 6% diagonal. 40% OM. 100% RCA. Patient had bare-metal stents x3 placed in the RCA by 30 mm, 2.75 x 26 mm in 2.5 x 26 mm. Patient was recently admitted to the hospital service but patient remains on a dopamine drip at 7.5 mg/kg/min. Patient currently denies chest pain is asking for his psychiatric medications and water. Denies chest pain currently. 07/20: Afebrile. Remains on dopamine drip at 8 mcg/kg/min. Unable to wean. Will need central line. Appears stable. Intermittently short of breath. Denies chest pain currently. 07/21: Afebrile. Remains on dopamine drip at 8 mcg/kg/min. Unable to wean. Right internal jugular vein central line placed yesterday. Intermittently short of breath. Denies chest pain currently. Tolerating diet. 07/22: Afebrile. Down to 4 mcg/kg/min of dopamine. Will attempt to wean to maintain a map around 55. Received 1 L normal saline with a total of 4 h 250 cc boluses overnight. SUBJECTIVE: 07/23: Afebrile. Off dopamine times 24 hours. Okay for map of 55. Will discontinue central line and transfer to floor today. Objective Vital Signs / I&O: Vital Signs 07/22/18 08:00 07/22/18 10:00 07/22/18 12:00 Temperature 98.2 F 98.1 F Pulse Rate 68 75 74 Respiratory Rate 17 18 Blood Pressure 114/64 113/64 Pulse Oximetry 96 98 07/22/18 14:00 07/22/18 14:26 07/22/18 16:00 Temperature 98 F Pulse Rate 70 72 79 Respiratory Rate 18 18 Blood Pressure 110/60 Pulse Oximetry 99 07/22/18 17:00 07/22/18 17:15 07/22/18 17:30 Temperature Pulse Rate 71 71 Respiratory Rate 24 26 H Blood Pressure 106/60 91/55 L 93/55 L Pulse Oximetry 97 97 07/22/18 17:45 07/22/18 18:00 07/22/18 18:15 Temperature Pulse Rate 80 80 77 Respiratory Rate 30 H 30 H 26 H Blood Pressure 95/57 L 98/59 L 101/59 L Pulse Oximetry 99 97 98 07/22/18 18:31 07/22/18 18:45 07/22/18 19:00 Temperature Pulse Rate 87 77 78 Respiratory Rate 33 H 29 H 29 H Blood Pressure 94/57 L 110/57 L 99/58 L Pulse Oximetry 99 98 99 07/22/18 19:15 07/22/18 19:30 07/22/18 19:45 Temperature Pulse Rate 74 74 77 Respiratory Rate 28 H 30 H 27 H Blood Pressure 104/57 L 110/57 L 100/56 L Pulse Oximetry 98 98 98 07/22/18 20:00 07/22/18 20:01 07/22/18 20:15 Temperature 97.6 F Pulse Rate 71 72 72 Respiratory Rate 29 H 20 26 H Blood Pressure 101/57 L 102/57 L Pulse Oximetry 99 98 98 07/22/18 20:30 07/22/18 20:45 07/22/18 21:00 Temperature Pulse Rate 71 85 73 Respiratory Rate 25 H 31 H 27 H Blood Pressure 98/58 L 99/61 L 100/57 L Pulse Oximetry 98 100 99 07/22/18 21:15 07/22/18 21:30 07/22/18 22:00 Temperature Pulse Rate 72 71 77 Respiratory Rate 24 23 28 H Blood Pressure 109/59 L 108/57 L 116/58 L Pulse Oximetry 98 99 97 07/22/18 22:15 07/22/18 22:30 07/22/18 22:45 Temperature Pulse Rate 75 77 71 Respiratory Rate 28 H 29 H 24 Blood Pressure 108/55 L 105/57 L 111/59 L Pulse Oximetry 98 99 98 07/22/18 23:00 07/22/18 23:01 07/22/18 23:15 Temperature Pulse Rate 85 80 76 Respiratory Rate 35 H 29 H 27 H Blood Pressure 97/53 L 104/58 L Pulse Oximetry 98 98 98 07/22/18 23:30 07/22/18 23:45 07/23/18 00:00 Temperature 99.2 F Pulse Rate 75 74 69 Respiratory Rate 31 H 27 H 24 Blood Pressure 105/57 L 109/61 103/60 Pulse Oximetry 99 98 97 07/23/18 00:15 07/23/18 00:30 07/23/18 00:45 Temperature Pulse Rate 71 73 74 Respiratory Rate 25 H 24 25 H Blood Pressure 98/54 L 103/59 L 103/58 L Pulse Oximetry 96 96 97 07/23/18 01:00 07/23/18 01:15 07/23/18 01:30 Temperature Pulse Rate 74 73 76 Respiratory Rate 25 H 27 H 26 H Blood Pressure 99/55 L 110/59 L 104/58 L Pulse Oximetry 97 97 97 07/23/18 01:45 07/23/18 02:00 07/23/18 02:15 Temperature Pulse Rate 74 71 72 Respiratory Rate 26 H 23 23 Blood Pressure 107/64 105/63 110/66 Pulse Oximetry 95 07/23/18 02:30 07/23/18 02:45 07/23/18 03:00 Temperature Pulse Rate 72 70 75 Respiratory Rate 28 H 22 24 Blood Pressure 108/61 104/62 130/58 L Pulse Oximetry 98 99 99 07/23/18 03:16 07/23/18 03:30 07/23/18 03:45 Temperature Pulse Rate 72 72 69 Respiratory Rate 25 H 29 H 22 Blood Pressure 104/58 L 108/63 109/66 Pulse Oximetry 100 99 100 07/23/18 04:00 07/23/18 04:15 07/23/18 04:30 Temperature 97.6 F Pulse Rate 78 69 67 Respiratory Rate 35 H 18 22 Blood Pressure 99/64 L 105/66 126/65 Pulse Oximetry 84 L 100 100 07/23/18 04:45 07/23/18 05:00 07/23/18 05:12 Temperature Pulse Rate 66 65 71 Respiratory Rate 23 25 H 26 H Blood Pressure 106/70 101/60 Pulse Oximetry 100 98 99 07/23/18 05:15 07/23/18 06:00 07/23/18 07:42 Temperature Pulse Rate 68 65 69 Respiratory Rate 22 16 Blood Pressure 104/58 L Pulse Oximetry 100 100 Intake & Output 07/22/18 07/23/18 07/23/18 18:59 06:59 18:59 Intake Total 480 / 480 350 / 350 Output Total 1000 / 1000 530 / 530 Balance -520 / -520 -180 / -180 Weight 72.9 kg Intake: Oral 480 / 480 350 / 350 Output: Urine 1000 / 1000 530 / 530 Other: Date of Last Bowel Movement 07/19/18 07/19/18 # Bowel Movements 0 0 Result Diagrams: 07/23/18 05:00 07/23/18 05:00 Imaging: Venous Doppler Study 07/19/18 00:00 CONCLUSION: 1. The study is negative for bilateral lower extremity deep venous thrombosis. Chest X-Ray 07/19/18 10:54 CONCLUSION: No evidence of significant congestion or acute airspace disease. Abdomen/Bladder Ultrasound 07/20/18 08:14 CONCLUSION: 1. Right renal cyst. 2. Increased echogenicity with thinning of the cortex bilaterally suggesting chronic renal disease without obstruction. Chest X-Ray 07/20/18 10:08 CONCLUSION: Line in good position Increasing bibasilar consolidative changes Objective Remarks: GENERAL: This is a 72-year-old male currently resting in bed in no acute distress SKIN: Warm and dry. No rash HEAD: Atraumatic. Normocephalic. EYES: Pupils equal and round. No scleral icterus. No injection or drainage. ENT: No nasal bleeding or discharge. Mucous membranes pink and moist. NECK: Trachea midline. No JVD. Right IJ is clean dry and intact CARDIOVASCULAR: Regular rate and rhythm. S1, S2. No S4. No murmur RESPIRATORY: No accessory muscle use. Clear to auscultation. Breath sounds equal bilaterally. GASTROINTESTINAL: Abdomen soft, non-tender, nondistended. Hypoactive bowel sounds appreciated. MUSCULOSKELETAL: Extremities without clubbing, cyanosis, or edema. No obvious deformities. Right inguinal region without hematoma NEUROLOGICAL: Awake and alert. No obvious cranial nerve deficits. Motor grossly within normal limits. Five out of 5 muscle strength in the arms and legs. Normal speech. PSYCHIATRIC: Appropriate mood and affect; insight and judgment normal. Assessment and Plan - Problem List (1) Depression Code(s): F32.9 - Major depressive disorder, single episode, unspecified Status : Acute (2) DVT (deep venous thrombosis) Code(s): I82.409 - Acute embolism and thrombosis of unspecified deep veins of unspecified lower extremity Status: Acute (3) Acute kidney injury Code(s): N17.9 - Acute kidney failure, unspecified Status: Acute (4) Coronary artery disease Code(s): I25.10 - Atherosclerotic heart disease of [place] coronary artery without angina pectoris Status: Acute (5) Acute inferior myocardial infarction Code(s): I21.19 - ST elevation (STEMI) myocardial infarction involving other coronary artery of inferior wall Status: Acute (6) Essential hypertension Code(s): I10 - Essential (primary) hypertension Status: Acute (7) Diabetes mellitus Code(s): E11.9 - Type 2 diabetes mellitus without complications Status: Acute (8) Anticoagulated Code(s): Z79.01 - [employer] customer [employer] (current) use of anticoagulants Status: Acute - Assessment and Plan Plan: Neuro/Psych: Major depressive disorder SOS Continue bupropion 150 mg 3 times daily, escitalopram 20 mg daily and pramipexole 1 mg daily Cardiology request holding dextroamphetamine/amphetamine for now. Acetaminophen 650 p.o. every 6 hours as needed fever Hydrocodone/acetaminophen 5/325 1 tablet every 4 hours as needed pain 1 through 5 Hydromorphone 1 mg IV every 4 hours as needed pain 6 through 10 CV: Acute inferior OH History of essential hypertension Hyperlipidemia with elevated LDL Coronary artery disease Status post cardiac catheterization by Dr. Hayes Ejection fraction 30% per cardiac catheterization report Left main 0%. LAD 70%. Diagonal 60%. OM 40% mid RCA 100 percent Status post bare-metal stent to RCA x3 Antiplatelet management per cardiology. Continue on ticagrelor 90 mg twice daily for dual action platelet therap with aspirin 81 mg daily okay with cardiology Atorvastatin 10 milligrams daily for dyslipidemia change to pravastatin 40 mg daily No beta-paulo and JUDY inhibitor while hypotensive Home medications verapamil 120 mg daily. This is currently on hold Continue tirofiban drip 6 AM on 07/20 Okay to maintain MAP around 65 Holding home medication of losartan 100 mg daily, verapamil 120 mg daily and triamterene/hydrochlorothiazide 37.5/25 1 tablet daily currently on hold Resp: Ongoing tobaccoism Nasal cannula to maintain saturations greater than equal to 92% Incentive spirometry while awake Albuterol/ipratropium aerosols every 4 hours with albuterol aerosols every 2 hours as needed dyspnea Tobacco cessation will be encouraged with self evaluation booklet to be provided GI: Elevated AST -likely cardiac Hypoalbuminemia Cardiac/diabetic diet to be initiated Pantoprazole for GI prophylaxis Docusate sodium/senna 1 tablet twice daily for bowel regimen : Straight catheterization as needed Endo: Diabetes mellitus Holding metformin 1000 mg twice daily in light of acute kidney injury/recent IV contrast load Sliding scale insulin aspart insulin with Accu-Cheks every 6 hours to maintain euglycemia Hemoglobin A1c was 5.7 TSH is 0.733 Renal: Acute kidney injury downtrending currently 1.4 Unknown baseline Monitor urine output Accurate I's and O's Recheck BMP in a.m. Check urine eosinophils, sodium, creatinine -Renal ultrasound revealed no hydronephrosis. Cortical thinning indicative of medical renal disease Heme: History of right lower extremity DVT Chronic warfarin use Normocytic anemia INR is 1.9 recent warfarin 2.5 mg daily. Pharmacy consultation for management ID: Monitor for signs and symptomatology infection FEN: Replace electrolytes as clinically indicated MSK: Out of bed/PT evaluate and treat when indicated Access -Right IJ CVL day 4 placed 07/20 Prophylaxis -GI -pantoprazole -DVT -SCD/warfarin anticoagulation Level 2 follow-up. Patient is stable from a critical care medicine standpoint. Assign care to hospitalist team 07/24 (1) Depression Qualifiers: Depression Type: unspecified Qualified Code(s): F32.9 - Major depressive disorder, single episode, unspecified (2) DVT (deep venous thrombosis) Qualifiers: DVT location: lower extremity Affected thrombotic vein of extremity: unspecified vein of extremity Chronicity: chronic Laterality: right Qualified Code(s): I82.501 - Chronic embolism and thrombosis of unspecified deep veins of right lower extremity (4) Coronary artery disease Qualifiers: Coronary Disease-Associated Artery/Lesion type: [place] artery [place] vs. transplanted heart: [place] heart Associated angina: angina presence unspecified Qualified Code(s): I25.10 - Atherosclerotic heart disease of [place] coronary artery without angina pectoris (7) Diabetes mellitus Qualifiers: Diabetes mellitus type: type 2 Diabetes mellitus [employer] insulin use: without [place] use Diabetes mellitus complication status: with unspecified complications Qualified Code(s): E11.8 - Type 2 diabetes mellitus with unspecified complications
[2018-07-23] MEDS: Senna/Docusate Sodium 8.6/50 MG Tablet PO SCH ×2 (08:24→20:14)
[2018-07-23] MEDS: buPROPion 75 MG Tablet PO SCH ×3 (08:25→18:20)
--- NOTE | 2018-07-23 15:21 | P.PNCA ---
Subjective Interval history: Patient denies any CP, pressure, palpitations, edema or SOB. Patient does complain of dizziness when standing up. Medications and Allergies Allergies Allergy/AdvReac Type Severity Reaction Status Date / Time No Known Allergies Allergy Verified 07/19/18 10:54 Home Medications Medication Instructions Recorded Confirmed Type metformin 1,000 mg PO BID 07/19/18 07/19/18 History verapamil 120 mg PO DAILY 07/19/18 07/19/18 History warfarin [Coumadin] 2.5 mg PO DAILY 07/19/18 07/19/18 History Active Medications: Active Medications Acetaminophen (Tylenol) 650 mg PO Q6H PRN PRN Reason: Fever >101f Hydrocodone Bitart/Acetaminophen ([place] 5/325) 1 tab PO Q4H PRN PRN Reason: PAIN SCALE 1 TO 5 Al Hydroxide/Mg Hydroxide (Milk Of Magnsanthosh Liq) 30 ml PO Q12H PRN PRN Reason: Mild Constipation Albuterol (Albuterol Neb (Prn)) 2.5 mg NEB Q2HR NEB PRN PRN Reason: SHORTNESS OF BREATH/WHEEZING Albuterol (Duoneb Neb ([facility])) 1 ampul NEB Q4HR NEB [facility] Last Admin: 07/23/18 11:08 Dose: 1 ampul Aspirin (Aspirin Chew) 81 mg PO DAILY [facility] Last Admin: 07/23/18 08:24 Dose: 81 mg Bisacodyl (Dulcolax Supp) 10 mg RECTAL DAILY PRN PRN Reason: SEVERE CONSITIPATION Bupropion HCl (Wellbutrin) 150 mg PO TID [facility] Last Admin: 07/23/18 12:21 Dose: 150 mg Chlorhexidine Gluconate (Chlorhexidine 2% Cloth) 3 pack TOPICAL DAILY@0400 [facility] Stop: 07/25/18 03:59 Last Admin: 07/23/18 03:37 Dose: Not Given Chlorhexidine Gluconate (Chlorhexidine 2% Cloth) 3 pack TOPICAL DAILY@0400 PRN PRN Reason: Extra cloth needed Stop: 07/25/18 03:59 Dextrose (D50w Vial) 50 ml IV.PUSH UNSCH PRN PRN Reason: PER HYPOGLYCEMIA PROTOCOL Escitalopram Oxalate (Lexapro) 20 mg PO DAILY [facility] Last Admin: 07/23/18 08:24 Dose: 20 mg Glucagon (Glucagon Inj) 1 mg OTHER PRN PRN PRN Reason: for Hypoglycemia Protocol Hydromorphone HCl (Dilaudid Pf Inj) 1 mg IV.PUSH Q4H PRN PRN Reason: PAIN SCALE 6 TO 10 Magnesium Sulfate 4 gm/ Sodium (Chloride) 100 mls @ 50 mls/hr IV.SIG UNSCH PRN PRN Reason: For Magnesium 0.9 - 1.1 mg/dL Magnesium Sulfate 2 gm/ Sodium (Chloride) 100 mls @ 50 mls/hr IV.SIG UNSCH PRN PRN Reason: For Magnesium 1.2 - 1.6 mg/dL Potassium Chloride (Kcl 40 Meq Premix Inj) 40 meq in 100 mls @ 25 mls/hr IV.SIG Q2H PRN PRN Reason: For Potassium 2.8 - 3.2 mEq/L Potassium Chloride (Kcl 20 Meq Premix Inj) 20 meq in 100 mls @ 50 mls/hr IV.SIG Q2H PRN PRN Reason: For Potassium 3.3 - 3.5 mEq/L Potassium Chloride (Kcl 40 Meq Premix Inj) 40 meq in 100 mls @ 25 mls/hr IV.SIG UNSCH PRN PRN Reason: For Potassium 3.3 - 3.5 mEq/L Potassium Chloride (Kcl 20 Meq Premix Inj) 20 meq in 100 mls @ 50 mls/hr IV.SIG Q2H PRN PRN Reason: For Potassium 2.8 - 3.2 mEq/L Potassium Phosphate 30 mmol/ (Sodium Chloride) 260 mls @ 42 mls/hr IV.SIG UNSCH PRN PRN Reason: SEE LABEL COMMENTS Sodium Phosphate 30 mmol/ (Sodium Chloride) 260 mls @ 42 mls/hr IV.SIG UNSCH PRN PRN Reason: For Phosphorus < 2.5 mg/dL Insulin Aspart (Novolog Insulin [place] Sugar Inj) 0 unit SQ Q6HR [facility]; Protocol Last Admin: 07/23/18 12:21 Dose: Not Given Lactulose (Lactulose Liq) 30 ml PO DAILY PRN PRN Reason: SEVERE CONSITIPATION Magnesium Oxide (Mag-Ox) 800 mg PO UNSCH PRN PRN Reason: For Magnesium 1.2 - 1.6 mg/dL Pantoprazole Sodium (Protonix) 40 mg PO DAILY [facility] Last Admin: 07/23/18 08:24 Dose: 40 mg Pharmacy Profile Note (Coumadin Consult Pharmacy) 1 each OTHER UNSCH PRN PRN Reason: PHARMACY DOCUMENTATION Potassium Bicarb/Potassium Chloride (K-Lyte Cl Eff) 50 meq PO UNSCH PRN PRN Reason: For Potassium 3.3 - 3.5 mEq/L Potassium Phosphate (K-Phos Original) 2,000 mg PO Q4H PRN PRN Reason: Phosphorus Less Than 2.5 mg/dL Potassium Phosphate (K-Phos Original) 2,000 mg PO UNSCH PRN PRN Reason: SEE LABEL COMMENTS Pramipexole Dihydrochloride (Mirapex) 1 mg PO DAILY [facility] Last Admin: 07/23/18 08:24 Dose: 1 mg Pravastatin Sodium (Pravachol) 40 mg PO HS [facility] Last Admin: 07/22/18 20:48 Dose: 40 mg Senna/Docusate Sodium ([place]-Colace) 1 tab PO BID [facility] Last Admin: 07/23/18 08:24 Dose: 1 tab Sennosides (Senokot) 17.2 mg PO Q12H PRN PRN Reason: Moderate Constipation Sodium Chloride (Ns Flush) 2 ml IV.FLUSH BID [facility] Last Admin: 07/23/18 08:25 Dose: 2 ml Sodium Chloride (Ns Flush) 2 ml IV.FLUSH PRN PRN PRN Reason: FLUSH AFTER USING IV ACCESS Sodium Chloride (Ns Flush) 0 ml IV.FLUSH DAILY [facility] Last Admin: 07/23/18 08:24 Dose: Not Given Throat Lozenges (Chloraseptic [place]) 2 spray OROPHARYNG Q2H PRN PRN Reason: SORE THROAT Last Admin: 07/20/18 22:05 Dose: 2 spray Ticagrelor (Brilinta) 90 mg PO Q12H [facility] Last Admin: 07/23/18 12:20 Dose: 90 mg Warfarin Sodium (Coumadin) 2.5 mg PO DAILY@1600 [facility] Last Admin: 07/22/18 17:40 Dose: 2.5 mg Physical Exam Vital signs: Vital Signs 07/22/18 16:00 07/22/18 17:00 07/22/18 17:15 Temperature 98 F Pulse Rate 79 71 Respiratory Rate 18 24 Blood Pressure 110/60 106/60 91/55 L Pulse Oximetry 99 97 07/22/18 17:30 07/22/18 17:45 07/22/18 18:00 Temperature Pulse Rate 71 80 80 Respiratory Rate 26 H 30 H 30 H Blood Pressure 93/55 L 95/57 L 98/59 L Pulse Oximetry 97 99 97 07/22/18 18:15 07/22/18 18:31 07/22/18 18:45 Temperature Pulse Rate 77 87 77 Respiratory Rate 26 H 33 H 29 H Blood Pressure 101/59 L 94/57 L 110/57 L Pulse Oximetry 98 99 98 07/22/18 19:00 07/22/18 19:15 07/22/18 19:30 Temperature Pulse Rate 78 74 74 Respiratory Rate 29 H 28 H 30 H Blood Pressure 99/58 L 104/57 L 110/57 L Pulse Oximetry 99 98 98 07/22/18 19:45 07/22/18 20:00 07/22/18 20:01 Temperature 97.6 F Pulse Rate 77 71 72 Respiratory Rate 27 H 29 H 20 Blood Pressure 100/56 L 101/57 L Pulse Oximetry 98 99 98 07/22/18 20:15 07/22/18 20:30 07/22/18 20:45 Temperature Pulse Rate 72 71 85 Respiratory Rate 26 H 25 H 31 H Blood Pressure 102/57 L 98/58 L 99/61 L Pulse Oximetry 98 98 100 07/22/18 21:00 07/22/18 21:15 07/22/18 21:30 Temperature Pulse Rate 73 72 71 Respiratory Rate 27 H 24 23 Blood Pressure 100/57 L 109/59 L 108/57 L Pulse Oximetry 99 98 99 07/22/18 22:00 07/22/18 22:15 07/22/18 22:30 Temperature Pulse Rate 77 75 77 Respiratory Rate 28 H 28 H 29 H Blood Pressure 116/58 L 108/55 L 105/57 L Pulse Oximetry 97 98 99 07/22/18 22:45 07/22/18 23:00 07/22/18 23:01 Temperature Pulse Rate 71 85 80 Respiratory Rate 24 35 H 29 H Blood Pressure 111/59 L 97/53 L Pulse Oximetry 98 98 98 07/22/18 23:15 07/22/18 23:30 07/22/18 23:45 Temperature Pulse Rate 76 75 74 Respiratory Rate 27 H 31 H 27 H Blood Pressure 104/58 L 105/57 L 109/61 Pulse Oximetry 98 99 98 07/23/18 00:00 07/23/18 00:15 07/23/18 00:30 Temperature 99.2 F Pulse Rate 69 71 73 Respiratory Rate 24 25 H 24 Blood Pressure 103/60 98/54 L 103/59 L Pulse Oximetry 97 96 96 07/23/18 00:45 07/23/18 01:00 07/23/18 01:15 Temperature Pulse Rate 74 74 73 Respiratory Rate 25 H 25 H 27 H Blood Pressure 103/58 L 99/55 L 110/59 L Pulse Oximetry 97 97 97 07/23/18 01:30 07/23/18 01:45 07/23/18 02:00 Temperature Pulse Rate 76 74 71 Respiratory Rate 26 H 26 H 23 Blood Pressure 104/58 L 107/64 105/63 Pulse Oximetry 97 95 07/23/18 02:15 07/23/18 02:30 07/23/18 02:45 Temperature Pulse Rate 72 72 70 Respiratory Rate 23 28 H 22 Blood Pressure 110/66 108/61 104/62 Pulse Oximetry 98 99 07/23/18 03:00 07/23/18 03:16 07/23/18 03:30 Temperature Pulse Rate 75 72 72 Respiratory Rate 24 25 H 29 H Blood Pressure 130/58 L 104/58 L 108/63 Pulse Oximetry 99 100 99 07/23/18 03:45 07/23/18 04:00 07/23/18 04:15 Temperature 97.6 F Pulse Rate 69 78 69 Respiratory Rate 22 35 H 18 Blood Pressure 109/66 99/64 L 105/66 Pulse Oximetry 100 84 L 100 07/23/18 04:30 07/23/18 04:45 07/23/18 05:00 Temperature Pulse Rate 67 66 65 Respiratory Rate 22 23 25 H Blood Pressure 126/65 106/70 Pulse Oximetry 100 100 98 07/23/18 05:12 07/23/18 05:15 07/23/18 06:00 Temperature Pulse Rate 71 68 65 Respiratory Rate 26 H 22 Blood Pressure 101/60 104/58 L Pulse Oximetry 99 100 07/23/18 07:42 07/23/18 08:00 07/23/18 10:00 Temperature 98.2 F Pulse Rate 69 68 77 Respiratory Rate 16 18 Blood Pressure 102/56 L Pulse Oximetry 100 100 07/23/18 11:10 07/23/18 12:00 07/23/18 14:00 Temperature 98 F Pulse Rate 66 67 74 Respiratory Rate 15 18 Blood Pressure 117/61 Pulse Oximetry 100 Intake & Output 07/22/18 07/23/18 07/23/18 18:59 06:59 18:59 Intake Total 480 / 480 350 / 350 Output Total 1000 / 1000 530 / 530 Balance -520 / -520 -180 / -180 Weight 72.9 kg Intake: Oral 480 / 480 350 / 350 Output: Urine 1000 / 1000 530 / 530 Other: Date of Last Bowel Movement 07/19/18 07/19/18 07/19/18 # Bowel Movements 0 0 - Constitutional no acute distress - Routine HEENT Exam Head: Present: normocephalic Eye: Present: PERRL ENT: Present: mucous membranes moist - Routine Neck Exam Present: full ROM - Routine Respiratory Exam Present: CTA bilaterally - Routine Cardiovascular Exam Present: S1, S2. Absent: murmur, gallop, rubs - Routine Abdominal Exam Present: normoactive bowel sounds - Routine Extremities Exam Present: full ROM, pulses intact, normal capillary refill. Absent: cyanosis, clubbing, edema - Routine Skin Exam Present: intact - Routine Neurological Exam Present: oriented X3 - Detailed Neurological Exam: Coma Scale Eye Opening: Spontaneous Verbal Response: Oriented Motor Response: [place] commands [place] Coma Scale Total: 15 - Routine Psychiatric Exam Present: normal affect Results 07/23/18 05:00 07/23/18 05:00 Coagulation 07/22/18 07/23/18 Range/Units 03:40 05:00 PT 17.4 H 19.0 H (9.8-11.6) sec CBC 07/22/18 07/23/18 Range/Units 03:40 05:00 WBC 7.1 6.6 (4.0-11.0) th/mm3 RBC 3.41 L 3.27 L (4.50-5.90) mil/mm3 Hgb 10.3 L D 9.9 L (13.0-17.0) gm/dL Hct 29.8 L 28.6 L (39.0-51.0) % Plt Count 138 L D 144 L (150-450) th/mm3 Neut # (Auto) 4.8 4.2 (1.8-7.7) th/mm3 Lymph # (Auto) 1.2 1.4 (1.0-4.8) th/mm3 [place] # (Auto) 0.7 0.6 (0.0-0.9) th/mm3 Eos # (Auto) 0.4 0.4 (0.0-0.4) th/mm3 Baso # (Auto) 0.0 0.0 (0.0-0.2) th/mm3 Comprehensive Metabolic Panel 07/22/18 07/23/18 Range/Units 03:40 05:00 Sodium 139 139 (136-145) meq/L Potassium 4.0 3.9 (3.5-5.1) meq/L Chloride 109 H 107 (98-107) meq/L Carbon Dioxide 24.0 23.8 (21.0-32.0) meq/L BUN 25 H 25 H (7-18) mg/dL Creatinine 1.38 H 1.53 H (0.60-1.30) mg/dL Calcium 7.6 L 8.0 L (8.5-10.1) mg/dL Intake and Output 07/23/18 07/23/18 07/23/18 06:59 14:59 22:59 Intake Total 350 / 350 Output Total 530 / 530 Balance -180 / -180 Intake: Oral 350 / 350 Output: Urine 530 / 530 Other: Date of Last Bowel Movement 07/19/18 07/19/18 # Bowel Movements 0 Weight 72.9 kg Assessment and Plan - Assessment (1) ST elevation myocardial infarction (STEMI) Code(s): I21.3 - ST elevation (STEMI) myocardial infarction of unspecified site Status: Acute (2) Diabetes mellitus Code(s): E11.9 - Type 2 diabetes mellitus without complications Status: Acute (3) Hypertension Code(s): I10 - Essential (primary) hypertension Status: Acute (4) Anticoagulated Code(s): Z79.01 - longterm (current) use of anticoagulants Status: Acute (5) Acute inferior myocardial infarction Code(s): I21.19 - ST elevation (STEMI) myocardial infarction involving other coronary artery of inferior wall Status: Acute (6) Acute kidney injury Code(s): N17.9 - Acute kidney failure, unspecified Status: Acute (7) DVT (deep venous thrombosis) Code(s): I82.409 - Acute embolism and thrombosis of unspecified deep veins of unspecified lower extremity Status: Acute (8) Depression Code(s): F32.9 - Major depressive disorder, single episode, unspecified Status : Acute - Plan Patient remains stable off dopamine. Continue to encourage PO fluids for hydration. No new cardiac issues at this time, continue with current cardiac treatment plan. We will continue current post MT care. Patient is s/p PCI, continue full anticoagulation with Brilinta and baby ASA. Continue to increase activity as patient tolerates. Patient can be transferred to step down from a cardiology standpoint. We will continue to monitor patient during hospitalization. The patient was seen and evaluated by Dr. Hayes who participated in care, management and decision making. - Attending Attestation Patient seen and examined. I reviewed and agree with the evaluation and plan as presented. Continue post PCI care. Transfer to tele. Increase activity. D/w pt' s son. (1) ST elevation myocardial infarction (STEMI) Qualifiers: Involved coronary artery: other coronary artery Qualified Code(s): I21.29 - ST elevation (STEMI) myocardial infarction involving other sites (2) Diabetes mellitus Qualifiers: Diabetes mellitus type: type 2 Diabetes mellitus intermediate accountant insulin use: without intermediate accountant use Diabetes mellitus complication status: with unspecified complications Qualified Code(s): E11.8 - Type 2 diabetes mellitus with unspecified complications (3) Hypertension Qualifiers: Hypertension type: unspecified Qualified Code(s): I10 - Essential (primary) hypertension (7) DVT (deep venous thrombosis) Qualifiers: DVT location: lower extremity Affected thrombotic vein of extremity: unspecified vein of extremity Chronicity: chronic Laterality: right Qualified Code(s): 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
[2018-07-24] MEDS: Chlorhexidine Gluconate 2% 1 Pack (2 Cloths) TOPICAL SCH (03:42)
[2018-07-24] MEDS: Insulin NovoLOG Aspart Correctional Sugar Inj SQ SCH ×3 (06:05→18:03)
[2018-07-24] MEDS: Senna/Docusate Sodium 8.6/50 MG Tablet PO SCH ×2 (08:40→21:23)
[2018-07-24] MEDS: buPROPion 75 MG Tablet PO SCH ×3 (08:41→18:04)
[2018-07-24 09:47] LABS: Baso % (Auto) 0.8 % (0.0-2.0); Eos # (Auto) 0.5 th/mm3 (0.0-0.4); Eos % (Auto) 8.3 % (0.0-4.0); Hematocrit 31.1 % (39.0-51.0); Hemoglobin 10.5 gm/dL (13.0-17.0); Lymph # (Auto) 1.3 th/mm3 (1.0-4.8); Lymph % (Auto) 22.4 % (9.0-44.0); Mean Corpuscular Hemoglobin 30.4 pg (27.0-34.0); Mean Corpuscular Volume 89.4 fL (80.0-100.0); Mean Platelet Volume 8.5 fL (7.0-11.0); Mono # (Auto) 0.6 th/mm3 (0.0-0.9); Mono % (Auto) 10.3 % (0.0-8.0); Neut # (Auto) 3.4 th/mm3 (1.8-7.7); Neut % (Auto) 58.2 % (16.0-70.0); Platelet Count 182 th/mm3 (150-450); Red Blood Count 3.47 mil/mm3 (4.50-5.90); Red Cell Distribution Width 14.2 % (11.6-17.2); White Blood Count 5.8 th/mm3 (4.0-11.0)
[2018-07-24 09:55] LABS: Prothrombin Time 20.4 sec (9.8-11.6)
[2018-07-24 10:05] LABS: Calcium 8.6 mg/dL (8.5-10.1); Carbon Dioxide 24.9 meq/L (21.0-32.0); Potassium 4.2 meq/L (3.5-5.1)
--- NOTE | 2018-07-24 12:09 | P.PNCA ---
Subjective Interval history: Patient denies any CP, pressure, palpitations or edema. Patient continues to complain of mild SOB with activity and dizziness when getting up. Medications and Allergies Allergies Allergy/AdvReac Type Severity Reaction Status Date / Time No Known Allergies Allergy Verified 07/19/18 10:54 Home Medications Medication Instructions Recorded Confirmed Type metformin 1,000 mg PO BID 07/19/18 07/19/18 History verapamil 120 mg PO DAILY 07/19/18 07/19/18 History warfarin [Coumadin] 2.5 mg PO DAILY 07/19/18 07/19/18 History Active Medications: Active Medications Acetaminophen (Tylenol) 650 mg PO Q6H PRN PRN Reason: Fever >101f Hydrocodone Bitart/Acetaminophen ([place] 5/325) 1 tab PO Q4H PRN PRN Reason: PAIN SCALE 1 TO 5 Al Hydroxide/Mg Hydroxide (Milk Of Magnsanthosh Liq) 30 ml PO Q12H PRN PRN Reason: Mild Constipation Albuterol (Albuterol Neb (Prn)) 2.5 mg NEB Q2HR NEB PRN PRN Reason: SHORTNESS OF BREATH/WHEEZING Last Admin: 07/23/18 17:27 Dose: 2.5 mg Albuterol (Duoneb Neb ([facility])) 1 ampul NEB Q4HR NEB [facility] Last Admin: 07/24/18 11:07 Dose: Not Given Aspirin (Aspirin Chew) 81 mg PO DAILY [facility] Last Admin: 07/24/18 08:40 Dose: 81 mg Bisacodyl (Dulcolax Supp) 10 mg RECTAL DAILY PRN PRN Reason: SEVERE CONSITIPATION Bupropion HCl (Wellbutrin) 150 mg PO TID [facility] Last Admin: 07/24/18 08:41 Dose: 150 mg Chlorhexidine Gluconate (Chlorhexidine 2% Cloth) 3 pack TOPICAL DAILY@0400 [facility] Stop: 07/25/18 03:59 Last Admin: 07/24/18 03:42 Dose: Not Given Chlorhexidine Gluconate (Chlorhexidine 2% Cloth) 3 pack TOPICAL DAILY@0400 PRN PRN Reason: Extra cloth needed Stop: 07/25/18 03:59 Dextrose (D50w Vial) 50 ml IV.PUSH UNSCH PRN PRN Reason: PER HYPOGLYCEMIA PROTOCOL Escitalopram Oxalate (Lexapro) 20 mg PO DAILY [facility] Last Admin: 07/24/18 08:40 Dose: 20 mg Glucagon (Glucagon Inj) 1 mg OTHER PRN PRN PRN Reason: for Hypoglycemia Protocol Hydromorphone HCl (Dilaudid Pf Inj) 1 mg IV.PUSH Q4H PRN PRN Reason: PAIN SCALE 6 TO 10 Magnesium Sulfate 4 gm/ Sodium (Chloride) 100 mls @ 50 mls/hr IV.SIG UNSCH PRN PRN Reason: For Magnesium 0.9 - 1.1 mg/dL Magnesium Sulfate 2 gm/ Sodium (Chloride) 100 mls @ 50 mls/hr IV.SIG UNSCH PRN PRN Reason: For Magnesium 1.2 - 1.6 mg/dL Potassium Chloride (Kcl 40 Meq Premix Inj) 40 meq in 100 mls @ 25 mls/hr IV.SIG Q2H PRN PRN Reason: For Potassium 2.8 - 3.2 mEq/L Potassium Chloride (Kcl 20 Meq Premix Inj) 20 meq in 100 mls @ 50 mls/hr IV.SIG Q2H PRN PRN Reason: For Potassium 3.3 - 3.5 mEq/L Potassium Chloride (Kcl 40 Meq Premix Inj) 40 meq in 100 mls @ 25 mls/hr IV.SIG UNSCH PRN PRN Reason: For Potassium 3.3 - 3.5 mEq/L Potassium Chloride (Kcl 20 Meq Premix Inj) 20 meq in 100 mls @ 50 mls/hr IV.SIG Q2H PRN PRN Reason: For Potassium 2.8 - 3.2 mEq/L Potassium Phosphate 30 mmol/ (Sodium Chloride) 260 mls @ 42 mls/hr IV.SIG UNSCH PRN PRN Reason: SEE LABEL COMMENTS Sodium Phosphate 30 mmol/ (Sodium Chloride) 260 mls @ 42 mls/hr IV.SIG UNSCH PRN PRN Reason: For Phosphorus < 2.5 mg/dL Insulin Aspart (Novolog Insulin Correctional Sugar Inj) 0 unit SQ Q6HR [facility]; Protocol Last Admin: 07/24/18 06:05 Dose: Not Given Lactulose (Lactulose Liq) 30 ml PO DAILY PRN PRN Reason: SEVERE CONSITIPATION Magnesium Oxide (Mag-Ox) 800 mg PO UNSCH PRN PRN Reason: For Magnesium 1.2 - 1.6 mg/dL Pantoprazole Sodium (Protonix) 40 mg PO DAILY [facility] Last Admin: 07/24/18 08:40 Dose: 40 mg Pharmacy Profile Note (Coumadin Consult Pharmacy) 1 each OTHER UNSCH PRN PRN Reason: PHARMACY DOCUMENTATION Potassium Bicarb/Potassium Chloride (K-Lyte Cl Eff) 50 meq PO UNSCH PRN PRN Reason: For Potassium 3.3 - 3.5 mEq/L Potassium Phosphate (K-Phos Original) 2,000 mg PO Q4H PRN PRN Reason: Phosphorus Less Than 2.5 mg/dL Potassium Phosphate (K-Phos Original) 2,000 mg PO UNSCH PRN PRN Reason: SEE LABEL COMMENTS Pramipexole Dihydrochloride (Mirapex) 1 mg PO DAILY [facility] Last Admin: 07/24/18 08:40 Dose: 1 mg Pravastatin Sodium (Pravachol) 40 mg PO HS [facility] Last Admin: 07/23/18 20:14 Dose: 40 mg Senna/Docusate Sodium ([place]-Colace) 1 tab PO BID [facility] Last Admin: 07/24/18 08:40 Dose: 1 tab Sennosides (Senokot) 17.2 mg PO Q12H PRN PRN Reason: Moderate Constipation Sodium Chloride (Ns Flush) 2 ml IV.FLUSH BID [facility] Last Admin: 07/24/18 08:41 Dose: 2 ml Sodium Chloride (Ns Flush) 2 ml IV.FLUSH PRN PRN PRN Reason: FLUSH AFTER USING IV ACCESS Sodium Chloride (Ns Flush) 0 ml IV.FLUSH DAILY [facility] Last Admin: 07/24/18 08:41 Dose: Not Given Throat Lozenges (Chloraseptic [place]) 2 spray OROPHARYNG Q2H PRN PRN Reason: SORE THROAT Last Admin: 07/20/18 22:05 Dose: 2 spray Ticagrelor (Brilinta) 90 mg PO Q12H [facility] Last Admin: 07/24/18 11:50 Dose: 90 mg Warfarin Sodium (Coumadin) 2.5 mg PO DAILY@1600 [facility] Last Admin: 07/23/18 16:37 Dose: 2.5 mg Physical Exam Vital signs: Vital Signs 07/23/18 14:00 07/23/18 15:30 07/23/18 17:24 Temperature 98.7 F Pulse Rate 74 73 73 Respiratory Rate 19 18 Blood Pressure 97/65 L Pulse Oximetry 98 07/23/18 17:30 07/23/18 20:00 07/23/18 21:15 Temperature 98.3 F Pulse Rate 87 71 68 Respiratory Rate 22 18 18 Blood Pressure 96/55 L Pulse Oximetry 97 98 07/24/18 00:00 07/24/18 00:27 07/24/18 04:00 Temperature 97.9 F 97.8 F Pulse Rate 71 66 69 Respiratory Rate 18 16 18 Blood Pressure 114/58 L 95/54 L Pulse Oximetry 96 95 07/24/18 07:26 07/24/18 07:43 07/24/18 08:28 Temperature 97.9 F Pulse Rate 76 82 Respiratory Rate 18 20 Blood Pressure 102/59 L Pulse Oximetry 96 96 07/24/18 09:41 Temperature Pulse Rate 62 Respiratory Rate Blood Pressure Pulse Oximetry Intake & Output 07/23/18 07/24/18 07/24/18 18:59 06:59 18:59 Output Total 1200 / 1200 Balance -1200 / -1200 Weight 70 kg 70 kg Output: Urine 1200 / 1200 Other: Date of Last Bowel Movement 07/19/18 - Constitutional no acute distress - Routine HEENT Exam Head: Present: normocephalic Eye: Present: PERRL ENT: Present: mucous membranes moist - Routine Neck Exam Present: full ROM - Routine Respiratory Exam Present: crackles Comments: crackles noted in the lower lobes bilateral. - Routine Cardiovascular Exam Present: S1, S2. Absent: murmur, gallop, rubs - Routine Abdominal Exam Present: normoactive bowel sounds - Routine Extremities Exam Present: full ROM, pulses intact, normal capillary refill. Absent: cyanosis, clubbing, edema - Routine Skin Exam Present: intact - Routine Neurological Exam Present: oriented X3 - Detailed Neurological Exam: Coma Scale Eye Opening: Spontaneous Verbal Response: Oriented Motor Response: Obey commands [place] Coma Scale Total: 15 - Routine Psychiatric Exam Present: normal affect Results 07/24/18 08:26 07/24/18 08:26 Coagulation 07/23/18 07/24/18 Range/Units 05:00 08:26 PT 19.0 H 20.4 H (9.8-11.6) sec CBC 07/23/18 07/24/18 Range/Units 05:00 08:26 WBC 6.6 5.8 (4.0-11.0) th/mm3 RBC 3.27 L 3.47 L (4.50-5.90) mil/mm3 Hgb 9.9 L 10.5 L (13.0-17.0) gm/dL Hct 28.6 L 31.1 L (39.0-51.0) % Plt Count 144 L 182 (150-450) th/mm3 Neut # (Auto) 4.2 3.4 (1.8-7.7) th/mm3 Lymph # (Auto) 1.4 1.3 (1.0-4.8) th/mm3 [place] # (Auto) 0.6 0.6 (0.0-0.9) th/mm3 Eos # (Auto) 0.4 0.5 H (0.0-0.4) th/mm3 Baso # (Auto) 0.0 0.0 (0.0-0.2) th/mm3 Comprehensive Metabolic Panel 07/23/18 07/24/18 Range/Units 05:00 08:26 Sodium 139 138 (136-145) meq/L Potassium 3.9 4.2 (3.5-5.1) meq/L Chloride 107 107 (98-107) meq/L Carbon Dioxide 23.8 24.9 (21.0-32.0) meq/L BUN 25 H 25 H (7-18) mg/dL Creatinine 1.53 H 1.42 H (0.60-1.30) mg/dL Calcium 8.0 L 8.6 (8.5-10.1) mg/dL Intake and Output 07/23/18 07/24/18 07/24/18 22:59 06:59 14:59 Output Total 1200 / 1200 Balance -1200 / -1200 Output: Urine 1200 / 1200 Other: Date of Last Bowel Movement 07/19/18 Weight 70 kg 70 kg Assessment and Plan - Assessment (1) ST elevation myocardial infarction (STEMI) Code(s): I21.3 - ST elevation (STEMI) myocardial infarction of unspecified site Status: Acute (2) Diabetes mellitus Code(s): E11.9 - Type 2 diabetes mellitus without complications Status: Acute (3) Hypertension Code(s): I10 - Essential (primary) hypertension Status: Acute (4) Anticoagulated Code(s): Z79.01 - rn long term care (current) use of anticoagulants Status: Acute (5) Acute inferior myocardial infarction Code(s): I21.19 - ST elevation (STEMI) myocardial infarction involving other coronary artery of inferior wall Status: Acute (6) Acute kidney injury Code(s): N17.9 - Acute kidney failure, unspecified Status: Acute (7) DVT (deep venous thrombosis) Code(s): I82.409 - Acute embolism and thrombosis of unspecified deep veins of unspecified lower extremity Status: Acute (8) Depression Code(s): F32.9 - Major depressive disorder, single episode, unspecified Status : Acute - Plan There are no signs of bleeding at this time, we will continue anticoagulation with Brilinta and baby ASA. Add Eliquis instead of warfarin for DVT prevention. There have been no new cardiac issues, we will continue with current cardiac treatment plan and post [place] care. Add low dose beta paulo. Continue to encourage PO fluids for hydration. We will continue to monitor patient during hospitalization. The patient was seen and evaluated by Dr. Hayes who participated in care, management and decision making. - Attending Attestation Patient seen and examined. I reviewed and agree with the evaluation and plan as presented. Continue post [place] care. Add Eliquis. Start low dose metoprolol. Increase activity. Transfer to rehab likely soon. (1) ST elevation myocardial infarction (STEMI) Qualifiers: Involved coronary artery: other coronary artery Qualified Code(s): I21.29 - ST elevation (STEMI) myocardial infarction involving other sites (2) Diabetes mellitus Qualifiers: Diabetes mellitus type: type 2 Diabetes mellitus mcc insulin use: without mcc use Diabetes mellitus complication status: with unspecified complications Qualified Code(s): E11.8 - Type 2 diabetes mellitus with unspecified complications (3) Hypertension Qualifiers: Hypertension type: unspecified Qualified Code(s): I10 - Essential (primary) hypertension (7) DVT (deep venous thrombosis) Qualifiers: DVT location: lower extremity Affected thrombotic vein of extremity: unspecified vein of extremity Chronicity: chronic Laterality: right Qualified Code(s): 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
--- NOTE | 2018-07-24 12:57 | P.PNIM ---
Subjective Interval history: Follow-up for STEMI, cardiomyopathy. Mr. Khan is currently doing well. He denies any chest pain, shortness of breath, fever or chills. He is 2 children are at bedside. Physical Exam Vital signs: Last Vital Signs Temp 98.1 F 07/24/18 12:00 Pulse 65 07/24/18 12:00 Resp 18 07/24/18 12:00 BP 100/59 L 07/24/18 12:00 Pulse Ox 96 07/24/18 12:00 Intake & Output 07/22/18 07/23/18 07/24/18 07/25/18 06:59 06:59 06:59 06:59 Intake Total 1950 / 1950 830 / 830 Output Total 2125 / 2125 1530 / 1530 1200 / 1200 Balance -175 / -175 -700 / -700 -1200 / -1200 Weight 75.6 kg 72.9 kg 70 kg GENERAL: Alert, NAD. SKIN: Warm and dry. HEAD: Normocephalic. EYES: No scleral icterus. No injection or drainage. NECK: Supple, trachea midline. No JVD or lymphadenopathy. CARDIOVASCULAR: Regular rate and rhythm without murmurs, gallops, or rubs. RESPIRATORY: Breath sounds equal bilaterally. No accessory muscle use. GASTROINTESTINAL: Abdomen soft, non-tender, nondistended. MUSCULOSKELETAL: No cyanosis, or edema. BACK: Nontender without obvious deformity. No CVA tenderness. 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 Khan is a pleasant 72-year-old male with a history of coronary artery disease, multiple episodes of DVT, anxiety who was admitted to the hospital on 07/19/2018 due to epigastric squeezing quality chest pain. 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 Inferior ST elevation myocardial infarction Ischemic cardiomyopathy with ejection fraction 30% Continue aspirin 81 mg daily, ticagrelor 90 mg p.o. every 12 hours Continue pravastatin 40 mg daily. Cardiology is following. Consider beta-paulo and ARB. History of DVT Continue warfarin. I discussed with cardiology who recommended continuing warfarin. Continue Protonix 40 mg p.o. daily. Acute kidney injury Diabetic mellitus -Continue sliding scale insulin. At home he is on metformin. -Creatinine improved from 1.63 --> 1.42. Full code. Warfarin. INR 2.0 today. Discharge plan: We will refer patient to [facility]. If not accepted, patient can likely go to SNF. Discussed with cardiology as well as patient's son and daughter. Progress Note: Quality VTE Deep Vein Thrombosis/Pulmonary Embolism Present on Admission: Yes _ (1) Diabetes mellitus Qualifiers: Chronic kidney disease stage: Diabetes mellitus complication detail: Diabetes mellitus complication status: with unspecified complications Diabetes mellitus buttermaker continuous churn insulin use: without alf use Diabetes mellitus macular edema: Diabetes mellitus type: type 2 Diabetic retinopathy severity: Laterality: Proliferative retinopathy type: Qualified Code(s): E11.8 - Type 2 diabetes mellitus with unspecified complications (2) DVT (deep venous thrombosis) Qualifiers: Affected thrombotic vein of extremity: unspecified vein of extremity Chronicity: chronic DVT location: lower extremity Laterality: right Qualified Code(s): I82.501 - Chronic embolism and thrombosis of unspecified deep veins of right lower extremity (3) Depression Qualifiers: Active/Remission status: Depression Type: unspecified Major depression episode severity: Major depression recurrence: Psychotic features: Trimester: Qualified Code(s): F32.9 - Major depressive disorder, single episode, unspecified (4) ST elevation myocardial infarction (STEMI) Qualifiers: Involved coronary artery: other coronary artery Qualified Code(s): I21.29 - ST elevation (STEMI) myocardial infarction involving other sites (5) Hypertension Qualifiers: Hypertension type: unspecified Qualified Code(s): I10 - Essential (primary) hypertension
[2018-07-25] MEDS: Insulin NovoLOG Aspart Correctional Sugar Inj SQ SCH ×3 (01:07→11:52)
--- NOTE | 2018-07-25 08:27 | P.PNCA ---
Subjective Interval history: Patient denies any CP, pressure, palpitations, dizziness, edema or SOB. Medications and Allergies Allergies Allergy/AdvReac Type Severity Reaction Status Date / Time No Known Allergies Allergy Verified 07/19/18 10:54 Home Medications Medication Instructions Recorded Confirmed Type metformin 1,000 mg PO BID 07/19/18 07/19/18 History verapamil 120 mg PO DAILY 07/19/18 07/19/18 History warfarin [Coumadin] 2.5 mg PO DAILY 07/19/18 07/19/18 History Active Medications: Active Medications Acetaminophen (Tylenol) 650 mg PO Q6H PRN PRN Reason: Fever >101f Hydrocodone Bitart/Acetaminophen ([place] 5/325) 1 tab PO Q4H PRN PRN Reason: PAIN SCALE 1 TO 5 Al Hydroxide/Mg Hydroxide (Milk Of Magnsanthosh Liq) 30 ml PO Q12H PRN PRN Reason: Mild Constipation Albuterol (Albuterol Neb (Prn)) 2.5 mg NEB Q2HR NEB PRN PRN Reason: SHORTNESS OF BREATH/WHEEZING Last Admin: 07/23/18 17:27 Dose: 2.5 mg Albuterol (Duoneb Neb (Flakito)) 1 ampul NEB Q4HR NEB FLAKITO Last Admin: 07/25/18 03:18 Dose: Not Given Aspirin (Aspirin Chew) 81 mg PO DAILY [facility] Last Admin: 07/24/18 08:40 Dose: 81 mg Bisacodyl (Dulcolax Supp) 10 mg RECTAL DAILY PRN PRN Reason: SEVERE CONSITIPATION Bupropion HCl (Wellbutrin) 150 mg PO TID [facility] Last Admin: 07/24/18 18:04 Dose: 150 mg Dextrose (D50w Vial) 50 ml IV.PUSH UNSCH PRN PRN Reason: PER HYPOGLYCEMIA PROTOCOL Escitalopram Oxalate (Lexapro) 20 mg PO DAILY [facility] Last Admin: 07/24/18 08:40 Dose: 20 mg Glucagon (Glucagon Inj) 1 mg OTHER PRN PRN PRN Reason: for Hypoglycemia Protocol Hydromorphone HCl (Dilaudid Pf Inj) 1 mg IV.PUSH Q4H PRN PRN Reason: PAIN SCALE 6 TO 10 Magnesium Sulfate 4 gm/ Sodium (Chloride) 100 mls @ 50 mls/hr IV.SIG UNSCH PRN PRN Reason: For Magnesium 0.9 - 1.1 mg/dL Magnesium Sulfate 2 gm/ Sodium (Chloride) 100 mls @ 50 mls/hr IV.SIG UNSCH PRN PRN Reason: For Magnesium 1.2 - 1.6 mg/dL Potassium Chloride (Kcl 40 Meq Premix Inj) 40 meq in 100 mls @ 25 mls/hr IV.SIG Q2H PRN PRN Reason: For Potassium 2.8 - 3.2 mEq/L Potassium Chloride (Kcl 20 Meq Premix Inj) 20 meq in 100 mls @ 50 mls/hr IV.SIG Q2H PRN PRN Reason: For Potassium 3.3 - 3.5 mEq/L Potassium Chloride (Kcl 40 Meq Premix Inj) 40 meq in 100 mls @ 25 mls/hr IV.SIG UNSCH PRN PRN Reason: For Potassium 3.3 - 3.5 mEq/L Potassium Chloride (Kcl 20 Meq Premix Inj) 20 meq in 100 mls @ 50 mls/hr IV.SIG Q2H PRN PRN Reason: For Potassium 2.8 - 3.2 mEq/L Potassium Phosphate 30 mmol/ (Sodium Chloride) 260 mls @ 42 mls/hr IV.SIG UNSCH PRN PRN Reason: SEE LABEL COMMENTS Sodium Phosphate 30 mmol/ (Sodium Chloride) 260 mls @ 42 mls/hr IV.SIG UNSCH PRN PRN Reason: For Phosphorus < 2.5 mg/dL Insulin Aspart (Novolog Insulin Correctional Sugar Inj) 0 unit SQ Q6HR [facility]; Protocol Last Admin: 07/25/18 05:56 Dose: Not Given Lactulose (Lactulose Liq) 30 ml PO DAILY PRN PRN Reason: SEVERE CONSITIPATION Magnesium Oxide (Mag-Ox) 800 mg PO UNSCH PRN PRN Reason: For Magnesium 1.2 - 1.6 mg/dL Metoprolol Succinate (Toprol Xl) 12.5 mg PO DAILY [facility] Pantoprazole Sodium (Protonix) 40 mg PO DAILY [facility] Last Admin: 07/24/18 08:40 Dose: 40 mg Potassium Bicarb/Potassium Chloride (K-Lyte Cl Eff) 50 meq PO UNSCH PRN PRN Reason: For Potassium 3.3 - 3.5 mEq/L Potassium Phosphate (K-Phos Original) 2,000 mg PO Q4H PRN PRN Reason: Phosphorus Less Than 2.5 mg/dL Potassium Phosphate (K-Phos Original) 2,000 mg PO UNSCH PRN PRN Reason: SEE LABEL COMMENTS Pramipexole Dihydrochloride (Mirapex) 1 mg PO DAILY [facility] Last Admin: 07/24/18 08:40 Dose: 1 mg Pravastatin Sodium (Pravachol) 40 mg PO HS [facility] Last Admin: 07/24/18 21:23 Dose: 40 mg Senna/Docusate Sodium ([place]lee-Colace) 1 tab PO BID [facility] Last Admin: 07/24/18 21:23 Dose: 1 tab Sennosides (Senokot) 17.2 mg PO Q12H PRN PRN Reason: Moderate Constipation Sodium Chloride (Ns Flush) 2 ml IV.FLUSH BID [facility] Last Admin: 07/24/18 21:23 Dose: 2 ml Sodium Chloride (Ns Flush) 2 ml IV.FLUSH PRN PRN PRN Reason: FLUSH AFTER USING IV ACCESS Sodium Chloride (Ns Flush) 0 ml IV.FLUSH DAILY [facility] Last Admin: 07/24/18 08:41 Dose: Not Given Throat Lozenges (Chloraseptic [place]) 2 spray OROPHARYNG Q2H PRN PRN Reason: SORE THROAT Last Admin: 07/20/18 22:05 Dose: 2 spray Ticagrelor (Brilinta) 90 mg PO Q12H [facility] Last Admin: 07/25/18 01:02 Dose: 90 mg Physical Exam Vital signs: Vital Signs 07/24/18 08:28 07/24/18 09:41 07/24/18 12:00 Temperature 98.1 F Pulse Rate 62 67 Respiratory Rate 18 Blood Pressure 100/59 L Pulse Oximetry 96 96 07/24/18 15:28 07/24/18 16:00 07/24/18 16:29 Temperature 98.7 F Pulse Rate 64 71 67 Respiratory Rate 20 20 Blood Pressure 108/53 L Pulse Oximetry 98 07/24/18 20:00 07/24/18 20:04 07/24/18 23:14 Temperature 99.3 F Pulse Rate 73 67 66 Respiratory Rate 18 20 18 Blood Pressure 110/58 L Pulse Oximetry 96 07/25/18 00:00 07/25/18 04:00 07/25/18 08:00 Temperature 98.6 F 98.7 F 98.1 F Pulse Rate 85 74 65 Respiratory Rate 18 18 20 Blood Pressure 152/72 H 114/58 L 121/63 Pulse Oximetry 94 L 96 96 Intake & Output 07/24/18 07/25/18 07/25/18 18:59 06:59 18:59 Intake Total 740 / 740 Output Total 200 / 200 Balance 540 / 540 Intake: Oral 740 / 740 Output: Urine 200 / 200 Other: # Voids 1 Date of Last Bowel Movement 07/23/18 # Bowel Movements 2 - Constitutional no acute distress - Routine HEENT Exam Head: Present: normocephalic Eye: Present: PERRL ENT: Present: mucous membranes moist - Routine Neck Exam Present: supple - Routine Respiratory Exam Present: CTA bilaterally - Routine Cardiovascular Exam Present: S1, S2 - Routine Abdominal Exam Present: normoactive bowel sounds - Routine Extremities Exam Present: full ROM, pulses intact, normal capillary refill. Absent: cyanosis, clubbing, edema - Routine Skin Exam Present: intact - Routine Neurological Exam Present: oriented X3 - Detailed Neurological Exam: Coma Scale Eye Opening: Spontaneous Verbal Response: Oriented Motor Response: Obey commands [place] Coma Scale Total: 15 - Routine Psychiatric Exam Present: normal affect Results 07/25/18 06:49 07/24/18 08:26 Coagulation 07/24/18 Range/Units 08:26 PT 20.4 H (9.8-11.6) sec CBC 07/24/18 Range/Units 08:26 WBC 5.8 (4.0-11.0) th/mm3 RBC 3.47 L (4.50-5.90) mil/mm3 Hgb 10.5 L (13.0-17.0) gm/dL Hct 31.1 L (39.0-51.0) % Plt Count 182 (150-450) th/mm3 Neut # (Auto) 3.4 (1.8-7.7) th/mm3 Lymph # (Auto) 1.3 (1.0-4.8) th/mm3 Lares # (Auto) 0.6 (0.0-0.9) th/mm3 Eos # (Auto) 0.5 H (0.0-0.4) th/mm3 Baso # (Auto) 0.0 (0.0-0.2) th/mm3 Comprehensive Metabolic Panel 07/24/18 Range/Units 08:26 Sodium 138 (136-145) meq/L Potassium 4.2 (3.5-5.1) meq/L Chloride 107 (98-107) meq/L Carbon Dioxide 24.9 (21.0-32.0) meq/L BUN 25 H (7-18) mg/dL Creatinine 1.42 H (0.60-1.30) mg/dL Calcium 8.6 (8.5-10.1) mg/dL Intake and Output 07/24/18 07/25/18 07/25/18 22:59 06:59 14:59 Intake Total 740 / 740 Output Total 200 / 200 Balance 540 / 540 Intake: Oral 740 / 740 Output: Urine 200 / 200 Other: # Voids 1 Date of Last Bowel Movement 07/23/18 # Bowel Movements 2 Assessment and Plan - Assessment (1) ST elevation myocardial infarction (STEMI) Code(s): I21.3 - ST elevation (STEMI) myocardial infarction of unspecified site Status: Acute (2) Diabetes mellitus Code(s): E11.9 - Type 2 diabetes mellitus without complications Status: Acute (3) Hypertension Code(s): I10 - Essential (primary) hypertension Status: Acute (4) Anticoagulated Code(s): Z79.01 - terminal supervisor (current) use of anticoagulants Status: Acute (5) Acute inferior myocardial infarction Code(s): I21.19 - ST elevation (STEMI) myocardial infarction involving other coronary artery of inferior wall Status: Acute (6) Acute kidney injury Code(s): N17.9 - Acute kidney failure, unspecified Status: Acute (7) DVT (deep venous thrombosis) Code(s): I82.409 - Acute embolism and thrombosis of unspecified deep veins of unspecified lower extremity Status: Acute (8) Depression Code(s): F32.9 - Major depressive disorder, single episode, unspecified Status : Acute - Plan Patient's BP remains stable. Continue post IN care. No new cardiac issues noted at this time. Continue to encourage PO hydration. Patient cleared for discharge to rehab from a cardiology standpoint The patient was seen and evaluated by Dr. Hayes who participated in care, management and decision making. - Attending Attestation Patient seen and examined. I reviewed and agree with the evaluation and plan as presented. Continue post IN care. Anticoagulation with Eliquis for DVT prevention. OK to discharge to rehab. (1) ST elevation myocardial infarction (STEMI) Qualifiers: Involved coronary artery: other coronary artery Qualified Code(s): I21.29 - ST elevation (STEMI) myocardial infarction involving other sites (2) Diabetes mellitus Qualifiers: Diabetes mellitus type: type 2 Diabetes mellitus intermediate insulin use: without intermediate card tender use Diabetes mellitus complication status: with unspecified complications Qualified Code(s): E11.8 - Type 2 diabetes mellitus with unspecified complications (3) Hypertension Qualifiers: Hypertension type: unspecified Qualified Code(s): I10 - Essential (primary) hypertension (7) DVT (deep venous thrombosis) Qualifiers: DVT location: lower extremity Affected thrombotic vein of extremity: unspecified vein of extremity Chronicity: chronic Laterality: right Qualified Code(s): 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
[2018-07-25 08:42] VITALS: O2SAT 97
[2018-07-25] MEDS: Senna/Docusate Sodium 8.6/50 MG Tablet PO SCH (08:44)
[2018-07-25] MEDS: buPROPion 75 MG Tablet PO SCH ×2 (08:45→14:26)
[2018-07-25 09:00] LABS: INR 1.8 Ratio; Prothrombin Time 18.6 sec (9.8-11.6)
--- NOTE | 2018-07-25 09:11 | P.PNIM ---
Subjective Interval history: Follow-up for STEMI, cardiomyopathy and multiple episodes of DVTs in the past. Patient is currently doing well. Denies any chest pain, shortness of breath, fever or chills. Physical Exam Vital signs: Last Vital Signs Temp 98.1 F 07/25/18 08:00 Pulse 67 07/25/18 08:42 Resp 22 07/25/18 08:42 BP 121/63 07/25/18 08:00 Pulse Ox 97 07/25/18 08:42 Intake & Output 07/23/18 07/24/18 07/25/18 07/26/18 06:59 06:59 06:59 06:59 Intake Total 830 / 830 740 / 740 Output Total 1530 / 1530 1200 / 1200 200 / 200 Balance -700 / -700 -1200 / -1200 540 / 540 Weight 72.9 kg 70 kg GENERAL: Alert, oriented x3, NAD. SKIN: Warm and dry. HEAD: Normocephalic. EYES: No scleral icterus. No injection or drainage. NECK: Supple, trachea midline. No JVD or lymphadenopathy. CARDIOVASCULAR: Regular rate and rhythm without murmurs, gallops, or rubs. RESPIRATORY: Breath sounds equal bilaterally. No accessory muscle use. GASTROINTESTINAL: Abdomen soft, non-tender, nondistended. MUSCULOSKELETAL: No cyanosis, or edema. BACK: Nontender without obvious deformity. No CVA tenderness. 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 Khan is a pleasant 72-year-old male with a history of coronary artery disease, multiple episodes of DVT, anxiety who was admitted to the hospital on 07/19/2018 due to epigastric squeezing quality chest pain. He was found to have inferior ST elevation [place] and was subsequently taken to cardiac [facility] emergently. Inferior ST elevation myocardial infarction Ischemic cardiomyopathy with ejection fraction 30% Continue aspirin 81 mg daily, ticagrelor 90 mg p.o. every 12 hours Continue pravastatin 40 mg daily. Cardiology is following. We started Metoprolol succinate 12.5mg Qday. -Per cardiology recs -we will continue Apixaban, Ticagrelor, Aspirin (81mg) for 1 month. Then continue Apixaban and Ticagrelor for 2 months. -Starting Month 3, we will drop Ticagrelor and re-start Aspirin 81. Patient will remain on Apixaban and Aspirin indefinitely Starting Month 3. History of DVT Switch to Apixaban 5mg BID. Continue Protonix 40 mg p.o. daily. Acute kidney injury Diabetic mellitus -Continue sliding scale insulin. At home he is on metformin. -Creatinine improved from 1.63 --> 1.42. Full code. INR 1.8 today. We will start apixaban this morning. Discharge plan: We will refer patient to [facility]. If not accepted, patient can likely go to SNF. Discussed with cardiology. Progress Note: Quality VTE Deep Vein Thrombosis/Pulmonary Embolism Present on Admission: Yes _ (1) Diabetes mellitus Qualifiers: Chronic kidney disease stage: Diabetes mellitus complication detail: Diabetes mellitus complication status: with unspecified complications Diabetes mellitus snf insulin use: without conversion man use Diabetes mellitus macular edema: Diabetes mellitus type: type 2 Diabetic retinopathy severity: Laterality: Proliferative retinopathy type: Qualified Code(s): E11.8 - Type 2 diabetes mellitus with unspecified complications (2) DVT (deep venous thrombosis) Qualifiers: Affected thrombotic vein of extremity: unspecified vein of extremity Chronicity: chronic DVT location: lower extremity Laterality: right Qualified Code(s): I82.501 - Chronic embolism and thrombosis of unspecified deep veins of right lower extremity (3) Depression Qualifiers: Active/Remission status: Depression Type: unspecified Major depression episode severity: Major depression recurrence: Psychotic features: Trimester: Qualified Code(s): F32.9 - Major depressive disorder, single episode, unspecified (4) ST elevation myocardial infarction (STEMI) Qualifiers: Involved coronary artery: other coronary artery Qualified Code(s): I21.29 - ST elevation (STEMI) myocardial infarction involving other sites (5) Hypertension Qualifiers: Hypertension type: unspecified Qualified Code(s): I10 - Essential (primary) hypertension
[2018-07-25 12:28] VITALS: BP 110/56; TEMP 98.4
[2018-07-25 15:37] VITALS: PULSE 62; RESP 18
--- NOTE | 2018-07-25 17:14 | P.DS ---
DS: Providers Date of admission: 07/19/18 13:10 Primary care physician: UNKNOWN Consults: 07/19/18 15:40 Consult to Hospitalist Routine Consulting Provider: Helena Rosado Reason for Consultation: Patient was taken straight to the cath-lab and then brought to [facility]. Dr. Hayes is currently the attending physician. Need hospitalist to take over as the attending physician and leave Dr. Hayes as a consulted physician. Notified:: Service Spoke with:: Danni Date Notified:: 07/19/18 Time Notified:: 15:49 Comments:: Waiting gastroenterology nurse practitioner back [id number] MT Ordering Provider: ARNOLD 07/19/18 16:19 Consult to Goat Herder Stat Consulting Provider: Dante Yepez For STAT consult, spoke directly to:: Dr Yepez Reason for Consultation: hypotension on dopamine. No need to page Dr Yepez at bedside Notified:: Service Spoke with:: aretha Date Notified:: 07/19/18 Time Notified:: 16:22 Ordering Provider: NICOLAS 07/20/18 04:42 HUB Only Consult Order Routine Consulting Provider: Suda Hayes 07/20/18 13:48 HUB Only Consult Order Routine Consulting Provider: [employer],Insurance 07/23/18 08:00 Consult to Hospitalist Routine Consulting Provider: Adelso Green Reason for Consultation: [place] of care in a.m. 07/24. Admission with STEMI/3 stents to the RCA. Okay to maintain MAP 55 Notified:: Service Spoke with:: CARLA Date Notified:: 07/23/18 Time Notified:: 08:11 Comments:: waiting gastroenterology nurse practitioner back/RA Ordering Provider: ABE 07/24/18 13:21 HUB Only Consult Order Routine Consulting Provider: [facility],Agency 07/24/18 13:24 HUB Only Consult Order Routine Consulting Provider: [facility],Agency 07/24/18 13:25 HUB Only Consult Order Routine Consulting Provider: Sweta Montemayor,Katherin Brief History from admission: This is a 72-year-old male. Date of admission 07/19/2018. Patient was taken straight to the [facility] and appears in room 525 on a dopamine drip at 7.5 mcg/kg/min. Patient was originally counseled the hospitalist but they consulted us for management. In reviewing the records, patient with history of depression on Adderall, hypertension, diabetes and ongoing tobaccoism. He is also on chronic warfarin for history of right lower extremity deep venous thrombosis. Today he presents to [facility] with a 36-hour history of ongoing chest pain, describes as squeezing his chest without radiation. States is 10 out of 10. And substernal in nature. EKG revealed ST elevation in inferior leads. Troponin greater than 40. Also no creatinine was elevated 1.6. INR is 2.4. During the cardiac catheterization , patient was noted to have's ejection fraction 30%. 0% stenosis left main. 70 % mid LAD. 6% diagonal. 40% OM. 100% RCA. Patient had bare-metal stents x3 placed in the RCA by 30 mm, 2.75 x 26 mm in 2.5 x 26 mm. Patient was recently admitted to the hospital service but patient remains on a dopamine drip at 7.5 mg/kg/min. Patient currently denies chest pain is asking for his psychiatric medications and water. Denies chest pain currently. DS: Diagnosis Discharge Diagnosis (1) ST elevation myocardial infarction (STEMI): Status: Acute (2) Diabetes mellitus: Status: Acute (3) Hypertension: Status: Acute (4) Anticoagulated: Status: Acute (5) Acute inferior myocardial infarction: Status: Acute (6) Acute kidney injury: Status: Acute (7) DVT (deep venous thrombosis): Status: Acute (8) Depression: Status: Acute DS: Summary Mr. Khan is a pleasant 72-year-old male with a history of coronary artery disease, multiple episodes of DVT, anxiety who was admitted to the hospital on 07/19/2018 due to epigastric squeezing quality chest pain. He was found to have inferior ST elevation [place] and was subsequently taken to cardiac Supply Controller emergently. Inferior ST elevation myocardial infarction Ischemic cardiomyopathy with ejection fraction 30% Continue aspirin 81 mg daily, ticagrelor 90 mg p.o. every 12 hours Continue pravastatin 40 mg daily. Cardiology is following. We started Metoprolol succinate 12.5mg Qday. -Per cardiology recs ++++++++++++++++++++++++++++++++++++++ Starting 07/25/2018: Continue Apixaban, Ticagrelor and Aspirin for 1 month. Then drop aspirin and continue ONLY Apixaban and Ticagrelor for 2 months. Then drop Ticagrelor and continue Apixaban and re-start Aspirin 81mg daily. This is per discussion with Dr. Hayes (Motivational Speaker). ++++++++++++++++++++++++++++++++++++++ History of DVT Switch to Apixaban 5mg BID. Continue Protonix 40 mg p.o. daily. Acute kidney injury Diabetic mellitus -Continued sliding scale insulin. At home he is on metformin. -Creatinine improved from 1.63 --> 1.42. eGFR is 49. Okay to resume Metformin. Full code. Apxiaban. Time Spent with Patient Total time spent providing and/or coordinating discharge services: Quality: VTE Deep Vein Thrombosis/Pulmonary Embolism Present on Admission: Yes Exam Narrative Exam Narrative: GENERAL: Alert, oriented x3, NAD. SKIN: Warm and dry. HEAD: Normocephalic. EYES: No scleral icterus. No injection or drainage. NECK: Supple, trachea midline. No JVD or lymphadenopathy. CARDIOVASCULAR: Regular rate and rhythm without murmurs, gallops, or rubs. RESPIRATORY: Breath sounds equal bilaterally. No accessory muscle use. GASTROINTESTINAL: Abdomen soft, non-tender, nondistended. MUSCULOSKELETAL: No cyanosis, or edema. BACK: Nontender without obvious deformity. No CVA tenderness. Results Labs on day of discharge: Labs from last 24 hours 07/25/18 07/25/18 07/25/18 11:33 06:49 06:49 Plt Count 204 PT 18.6 H INR 1.8 POC Glucose 205 H 07/25/18 07/25/18 07/24/18 05:48 01:01 18:00 Plt Count PT INR POC Glucose 110 177 H 136 H Cardiac cath 07/19/[address] elevation myocardial infarction.2. Coronary artery disease with total occlusion of the right coronaryartery with thrombus and moderate stenosis of the left anterior descending artery.3. Moderate to severe left ventricular dysfunction consistent with ischemic cardiomyopathy.4. Successful thrombectomy , angioplasty and stenting of the right coronary artery Impressions ITS Impressions Venous Doppler Study 07/19/18 00:00 CONCLUSION: 1. The study is negative for bilateral lower extremity deep venous thrombosis. Abdomen/Bladder Ultrasound 07/20/18 08:14 CONCLUSION: 1. Right renal cyst. 2. Increased echogenicity with thinning of the cortex bilaterally suggesting chronic renal disease without obstruction. Chest X-Ray 07/20/18 10:08 CONCLUSION: Line in good position Increasing bibasilar consolidative changes Discharge Plan Discharge Disposition Patient Disposition: 03 Discharge to SNF Discharge Condition Condition: Good Discharge Order Discharge Orders: Discharge Order (Routine); Ordered 07/25/18 Ordered By: Gamal Sampson Discharge Details Anticipated Discharge Date: 07/25/18 Discharge Comment: Starting 07/25/2018: Continue Apixaban, Ticagrelor and Aspirin for 1 month. Then drop aspirin and continue ONLY Apixaban and Ticagrelor for 2 months. Then drop Ticagrelor and continue Apixaban and re- start Aspirin 81mg daily. This is per discussion with Dr. Hayes (Motivational Speaker ). Physicians Team ED Provider: Anton Garcia Primary Care Provider: UNKNOWN, Attending Provider: Gamal Sampson Other Providers: Suad Hayes ; [employer],Insurance ; [facility], Agency ; [facility],Agency ; [facility] Rxs /Orders / Referrals /Forms Prescriptions: New pramipexole [Mirapex] 1 mg Tablet 1 mg PO DAILY 30 Days Qty: 30 RF: 0 pravastatin 40 mg Tablet 40 mg PO HS Qty: 90 RF: 3 pantoprazole 40 mg Tablet,Delayed Release (Dr/Ec) 40 mg PO DAILY 30 Days Qty: 30 RF: 11 bupropion HCl 75 mg Tablet 150 mg PO TID 30 Days Qty: 180 RF: 0 aspirin 81 mg Tablet,Chewable 81 mg PO DAILY Qty: 30 RF: 0 metoprolol succinate 25 mg Tablet Extended Release 24 Hr 12.5 mg PO DAILY Qty: 30 RF: 11 escitalopram oxalate 20 mg Tablet 20 mg PO DAILY 30 Days Qty: 30 RF: 0 ticagrelor [Brilinta] 90 mg Tablet 90 mg PO Q12H Qty: 60 RF: 2 apixaban [Eliquis] 5 mg Tablet 5 mg PO BID Qty: 60 RF: 11 Continue metformin 1,000 mg Tablet 1,000 mg PO BID RF: 0 Discontinued verapamil 120 mg Tablet Extended Release 120 mg PO DAILY RF: 0 warfarin [Coumadin] 2.5 mg Tablet 2.5 mg PO DAILY RF: 0 Referrals: Suad Hayes MD [Physician] - See Instructions (Within 1-2 weeks. ) UNKNOWN, [Primary Care Provider] - See Instructions Discharge Instructions Patient Printed Instructions: Chest Pain (ED) Additional Instructions: Your Health Problems: Goals to Promote Your Health: * To prevent worsening of your condition * To maintain your health at the optimal level Directions to Meet Your Goals: * Take your medications as prescribed * Follow your dietary instruction * Follow activity as directed * Keep your appointments as scheduled * Take your immunizations and boosters as scheduled * If your symptoms worsen call your PCP * If no PCP go to Urgent Care or Emergency Room Smoking is dangerous to your health. Avoid second hand smoke. You may reach the 24-hour crisis hotline for domestic abuse at . Discharge Interventions Interventions: Discharge Planning - Case Management Last Done: 07/25/18 17:07 Status ED Status: Left Department
== END 2018-07-25 17:59 ==
LOC: NEPC 10:50 → HIMC 11:06 → N05 07-23 17:09
PROVIDERS: ADMIT Hospitalist; ATTEND Hospitalist
DX: F32.9 Major depressive disorder, single episode, unspecified; N17.9 Acute kidney failure, unspecified; D64.9 Anemia, unspecified; E88.09 Other disorders of plasma-protein metabolism, not elsewhere classified; E78.5 Hyperlipidemia, unspecified; E89.0 Postprocedural hypothyroidism; E11.22 Type 2 diabetes mellitus with diabetic chronic kidney disease; Z23 Encounter for immunization; I25.5 Ischemic cardiomyopathy; I21.19 ST elevation (STEMI) myocardial infarction involving other coronary artery of inferior wall; I50.9 Heart failure, unspecified; I13.0 Hypertensive heart and chronic kidney disease with heart failure and stage 1 through stage 4 chronic kidney disease, or unspecified chronic kidney disease; F17.210 Nicotine dependence, cigarettes, uncomplicated; I82.501 Chronic embolism and thrombosis of unspecified deep veins of right lower extremity; N18.9 Chronic kidney disease, unspecified; Z79.01 Long term (current) use of anticoagulants; I25.119 Atherosclerotic heart disease of native coronary artery with unspecified angina pectoris; Z79.4 Long term (current) use of insulin; I45.10 Unspecified right bundle-branch block; Z82.49 Family history of ischemic heart disease and other diseases of the circulatory system; E11.3599 Type 2 diabetes mellitus with proliferative diabetic retinopathy without macular edema, unspecified eye